=== PATIENT | female | born 1950 | race Caucasian/White ===

== ENCOUNTER 2017-10-01 04:39 | Emergency (ER) | payer OTHER, SELFPAY ==
[2017-10-01 04:41] VITALS: BP 173/84; PULSE 83; RESP 18; TEMP 36.8; O2SAT 97; BMI 22.4
--- NOTE | 2017-10-01 04:54 | ED.DCSUM_ITS ---
- ER Visit Summary Date of Service: 10/01/17 Chief Complaint: [] Back pain shooting down leg History of Present Illness: The patient is a 67 F [] complaining of 2-3 hours of severe sciatica pain. Denies previous history of sciatica. Does report working in the yard all day. No other complaints at this time. Physical Examination: [] Afebrile, vital signs stable. Cardiovascular exam reveals systolic murmur. Lungs clear to auscultation. Abdomen soft nontender. Patient has pain with the hip flexed and the knee extended. Neurovascularly intact distally. Test Results: [] None. Emergency Department Course and Treatment: [] Patient given 8 mg IM morphine and 30 mg IM Toradol for analgesia. Patient's is at the bedside will drive her home. Patient encouraged to follow-up with her PCP. Use ibuprofen as needed for pain. Treatment Plan: [] Given IM analgesia with prescription for ibuprofen for home. PCP follow up. Disposition: [] Discharge, stable. Impression: [] Right-sided sciatica This note was generated with [employer] dictation software. It may contain incorrect words, spelling, and punctuation that were not noted in review of the chart prior to signing ED Disposition - Plan for ED Patient: Chief Complaint: Lower Extremity Injury Referrals: Vinh Abdullahi DO [Primary Care Provider] -
--- NOTE | 2017-10-01 04:54 | ED.DEP ---
ED Disposition - Plan for ED Patient: Disposition: Home or Assisted Living Chief Complaint: Lower Extremity Injury Instructions: ED Sciatica Prescriptions: Ibuprofen 800 mg PO TID PRN PRN #30 tab PRN Reason: Pain Referrals: Vinh Abdullahi DO [Primary Care Provider] -
[2017-10-01] MEDS: morphine 8 MG/ML Syringe IM (05:02)
[2017-10-01] MEDS: Ketorolac 30 MG/ML Syringe IM (05:02)
--- NOTE | 2017-10-01 05:27 | ED.RN ---
no reaction at either injection sites. pt discharged via wheelchair with .
[2017-10-01 05:30] VITALS: BP 173/78; PULSE 78; RESP 16; O2SAT 95
== END 2017-10-01 05:31 | disposition home or self-care (01) ==
PROVIDERS: Emergency Provider Emergency Medicine; Family Provider Family Medicine; PCP Family Medicine
DX: M54.41 Lumbago with sciatica, right side (principal); R01.1 Cardiac murmur, unspecified; I10 Essential (primary) hypertension; E78.00 Pure hypercholesterolemia, unspecified; G89.29 Other chronic pain; Z79.899 Other long term (current) drug therapy; Z72.0 Tobacco use
CPT/HCPCS: 96372; 99282

== ENCOUNTER 2018-04-24 08:49 | Day surgery (SDC) | payer OTHER, SELFPAY ==
[2018-04-24] VITALS (8 sets, daily range): BP systolic 133–170; BP diastolic 68–84; PULSE 73–99; RESP 14–18; TEMP 36.3–37.4; O2SAT 95–98; BMI 21.2
--- NOTE | 2018-04-24 10:30 | RAD_ITS ---
STUDY: X-RAY - LEFT CLAVICLE REASON FOR EXAM: Hardware removal. TECHNIQUE: 2 fluoroscopic view(s) of the clavicle. COMPARISON: Radiographs 12/22/2016. FINDINGS: There is removal of the orthopedic hardware without demonstrated complication. Electronically Signed: Chang Espinoza MD at 15:17 EST Tel , Service support , RAD/Clavicle
--- NOTE | 2018-04-24 12:24 | DCINST_ITS ---
Discharge Diet: No Restrictions - use arm as tolerated, but sling for protection for next 2 weeks Discharge Activity: May Not Drive May shower in (days): 1 Ice area for (Minutes): 20 - Every hour while awake. Weight Bearing Status: Weight bearing as tolerated Keep extremity elevated above heart level: Operative Extremity Call your doctor if your incision/area has: Continuous Slow Oozing, Sudden Increased Bleeding, Increased Pain/ Swelling, Increased Redness, Foul Smelling Discharge Call your doctor if you observe: Fever of 101 or Higher, Coldness, Increased Pain, Numbness or Tingling, Change in Color, Calf discomfort Allergies/Adverse Reactions: Allergies No Known Allergies Allergy (Verified 04/24/18 09:03) Medications to take at Discharge Atorvastatin Calcium [Lipitor] 40 mg PO QHS 01/21/15 Metoprolol Tartrate [Lopressor (Beta Deana)] 25 mg PO BID 01/21/15 Ropinirole HCl [Requip Xl] 2 mg PO TID 01/21/15 traMADol [Ultram (G)] 100 mg PO BID 01/21/15 Ibuprofen 800 mg PO TID PRN PRN #30 tab 10/01/17 Hydrocodone Bitart/Apap 5-325 [[place] 5MG-325MG] 1 - 2 tablet PO Q6H PRN PRN 5 Days #20 tablet 04/24/18 The following prescriptions were given: Hydrocodone Bitart/Apap 5-325 [[place] 5MG-325MG] 1 - 2 tablet PO Q6H PRN PRN 5 Days #20 tablet PRN Reason: Pain Primary Care Physician: Vinh Abdullahi DO [Primary Care Provider] - Test Results: Test results from this visit will be discussed in further detail at your follow- up appointment, if applicable. Please Follow Up With: Abiola Savage DO - [phone]
--- NOTE | 2018-04-24 12:24 | PCM.OPRPT ---
Report of Operation Date of Procedure: 04/24/18 Pre-Operative Diagnosis: left clavicle h/o orif, painful hardware Post-Operative Diagnosis: same Surgery/Procedure Performed:: left clavicel removal of hardware and kalyani debridement clinical trial data manager: Ansemlo Peterson Type of Anesthesia:: General Anesthesiologist: Vipin Moreno Specimen's removed: 7 screws and plate- synthes Estimated Blood Loss (mL): 5cc Fluids Replaced: 1100ml lr Description of Procedure: Preoperative note Patient is a 68-year-old female well-known to the office. She had an ORIF of her left clavicle a little while back. X-rays confirmed well-healed however painful and she does not like the way it looks on the top of her shoulder is very close the skin. Risks benefits and alternatives surgery discussed with patient. Risks include but not limited to blood loss, blood clot, infection, neurovascular injury, failure procedure, loss of life and loss of limb. Patient is aware would like proceed with left shoulder clavicle removal of hardware repair is indicated. Operative note Patient seen and examined preoperative holding area. Left shoulder was marked. Patient brought to the operating room placed supine on the operating table. Signing, anesthesia, antibiotics were administered. The left arm was prepped and draped in usual sterile fashion. We then used fluoroscopy to take a preop initial fluoroscopy image to confirm screw number placement and hardware. We then marked out our previous incision timeout was performed. We then used a 15 blade to cut the skin dissected down with accommodation of tenotomies and a burner coagulating bleeders dental of the plate. We then used a burner to then release the soft tissue that was around the screws the screws were then removed and sent to for further follow-up cultures to ensure that there is no infection. We then moved the plate in its entirety and took final images to confirm that we had received moved all of the hardware. We then noticed a little bit of bony overgrowth so we did resect this back gently with a rongeur to a stable co-planed surface. We then irrigated the incision with copious amounts of sterile saline. Incision was closed with interrupted3 0 nylon in a running 4-0 Monocryl sterile dressings were applied patient was placed in a sling. Patient tolerated procedure well no not complete complication transferred recovery room in stable condition. Next Postoperative note Arm use arm as tolerated however use sling when out and about [facility] pharmacy has prescriptions Follow-up in 2 weeks for evaluation of Call with increased pain numbness tingling or further issues arise This note was generated with [employer] dictation software. It may contain incorrect words, spelling, and punctuation that were not noted in checking the note before signing.
--- NOTE | 2018-04-24 12:29 | OP.PCM_ITS ---
Report of Operation Date of Procedure: 04/24/18 Pre-Operative Diagnosis: left clavicle h/o orif, painful hardware Post-Operative Diagnosis: same Surgery/Procedure Performed:: left clavicel removal of hardware and kalyani debridement bituminous distributor operator: Anselmo Peterson Type of Anesthesia:: General Anesthesiologist: Vipin Moreno Specimen's removed: 7 screws and plate- synthes Estimated Blood Loss (mL): 5cc Fluids Replaced: 1100ml lr Description of Procedure: Preoperative note Patient is a 68-year-old female well-known to the office. She had an ORIF of her left clavicle a little while back. X-rays confirmed well-healed however painful and she does not like the way it looks on the top of her shoulder is very close the skin. Risks benefits and alternatives surgery discussed with patient. Risks include but not limited to blood loss, blood clot, infection, neurovascular injury, failure procedure, loss of life and loss of limb. Patient is aware would like proceed with left shoulder clavicle removal of hardware repair is indicated. Operative note Patient seen and examined preoperative holding area. Left shoulder was marked. Patient brought to the operating room placed supine on the operating table. Signing, anesthesia, antibiotics were administered. The left arm was prepped and draped in usual sterile fashion. We then used fluoroscopy to take a preop initial fluoroscopy image to confirm screw number placement and hardware. We then marked out our previous incision timeout was performed. We then used a 15 blade to cut the skin dissected down with accommodation of tenotomies and a burner coagulating bleeders dental of the plate. We then used a burner to then release the soft tissue that was around the screws the screws were then removed and sent to for further follow-up cultures to ensure that there is no infection. We then moved the plate in its entirety and took final images to confirm that we had received moved all of the hardware. We then noticed a little bit of bony overgrowth so we did resect this back gently with a rongeur to a stable co- planed surface. We then irrigated the incision with copious amounts of sterile saline. Incision was closed with interrupted3 0 nylon in a running 4-0 Monocryl sterile dressings were applied patient was placed in a sling. Patient tolerated procedure well no not complete complication transferred recovery room in stable condition. Next Postoperative note Arm use arm as tolerated however use sling when out and about next [facility] pharmacy has prescriptions Follow-up in 2 weeks for evaluation of Call with increased pain numbness tingling or further issues arise This note was generated with [employer] dictation software. It may contain incorrect words, spelling, and punctuation that were not noted in checking the note before signing.
== END 2018-04-24 14:59 | disposition home or self-care (01) ==
LOC: SDC 08:50 → AC 08:51
PROVIDERS: Family Provider Family Medicine; PCP Family Medicine; Referring Provider Orthopaedic Surgery; Visit Provider Orthopaedic Surgery
PROC: (CPT 20680; principal; 2018-04-24 10:15)
DX: T84.84XA Pain due to internal orthopedic prosthetic devices, implants and grafts, initial encounter (principal); Y83.1 Surgical operation with implant of artificial internal device as the cause of abnormal reaction of the patient, or of later complication, without mention of misadventure at the time of the procedure; E78.00 Pure hypercholesterolemia, unspecified; Z79.899 Other long term (current) drug therapy; I10 Essential (primary) hypertension; F17.200 Nicotine dependence, unspecified, uncomplicated; G25.81 Restless legs syndrome; G89.29 Other chronic pain
CPT/HCPCS: 00450; 20680; 73000; 76000; 87070; 87075; 87205; J7120; J0330; J2405

== ENCOUNTER → 2018-05-22 09:02 | Outpatient (CLI) | payer OTHER, SELFPAY ==
[2018-04-24 09:06] VITALS: BMI 21.2
--- NOTE | 2018-05-22 09:06 | RAD_ITS ---
STUDY: X-RAY - LUMBAR SPINE REASON FOR EXAM: Female, 68 years old. Chronic low back pain and lower extremity pain. TECHNIQUE: 4 view(s) of the lumbar spine were obtained including oblique views. COMPARISON: None FINDINGS: There is straightening of the normal lumbar lordosis. There is a mild levoscoliosis of the lumbar spine. Grade 1 anterolisthesis of L4 on L5 without spondylolysis. There is multilevel endplate spondylosis of the lumbar vertebrae. There is multi-level degenerative disc disease with multi-level disc space narrowing. There is atherosclerotic calcification of the abdominal aorta without a demonstrated aneurysm. RAD/L/S Spine Min 4 Views IMPRESSION: Degenerative changes of the spine, as detailed above. Electronically Signed: German Birmingham MD at 14:18 EST Tel [phone], Service support ,
--- OUTSIDE RECORDS SUMMARY | 2018-07-08 04:56 | XMS RPT_ITS ---
:1950 Author Organization OHIP Support Name Relationship Address Phone R Unavailable Unavailable Unavailable MANUELA ALBERTS Unavailable [address] + [place] [address] R Unavailable Unavailable Unavailable MANUELA ALBERTS Unavailable [address] + [place] [address] R Unavailable Unavailable Unavailable MANUELA ALBERTS Unavailable [address] + [place] [address] R Unavailable Unavailable Unavailable MANUELA ALBERTS Unavailable [address] + [place] [address] R Unavailable Unavailable Unavailable MANUELA ALBERTS Unavailable [address] + [place] [address] R Unavailable Unavailable Unavailable MANUELA ALBERTS Unavailable [address] + [place] [address] R Unavailable Unavailable Unavailable MANUELA ALBERTS Unavailable [address] + [place] [address] R Unavailable Unavailable Unavailable MANUELA ALBERTS Unavailable [address] + [place] [address] R Unavailable Unavailable Unavailable MANUELA ALBERTS Unavailable [address] + [place] [address] R Unavailable Unavailable Unavailable MANUELA ALBERTS Unavailable [address] + [place] [address] Care Team Providers Name Role Phone Vinh Abdullahi Attending Unavailable Vinh Abdullahi Referring Unavailable Vinh Abdullahi Primary Care Unavailable Vinh Abdullahi Attending Unavailable Vinh Abdullahi Referring Unavailable Vinh Abdullahi Primary Care Unavailable Vinh Abdullahi Primary Care Unavailable Niranjan Haro Attending Unavailable Anselmo Peterson Attending Unavailable Vinh Abdullahi Referring Unavailable Fredrick Petersonew Attending Unavailable Wayleroy, Anselmo Referring Unavailable Bradly, Vinh Primary Care Unavailable Wayt, Anselmo Attending Unavailable Wayt, Anselmo Referring Unavailable Bradly, Vinh Primary Care Unavailable Chicorelli, Abiola Attending Unavailable Bradly, Vinh Referring Unavailable Chicorelli, Abiola Attending Unavailable Chicorelli, Abiola Referring Unavailable Bradly, Vinh Primary Care Unavailable Chicorelli, Abiola Attending Unavailable Chicorelli, Abiola Referring Unavailable Bradly, Vinh Primary Care Unavailable Chicorelli, Abiola Consulting Unavailable Chicorelli, Abiola Attending Unavailable Bradly, Vinh Referring Unavailable PROBLEMS PROBLEMS DATE TYPE CONDITION / CODE ATTENDING STATUS SOURCE 06/06/2018 Unknown M89.8X1 - Other Anselmo Peterson Active [facility] specified [facility] / Hospital M89.8X1(ICD-10) Repository 06/05/2018 Unknown M54.16 - Vinh Abdullahi Active [facility] Radiculopathy, [facility] lumbar region / Hospital M54.16(ICD-10) Repository 04/24/2018 Unknown G89.18 - Other acute Chicorelmicki, Active Jennifer postprocedural pain [facility], 1928–1983 / G89.18(ICD-10) Hospital Repository PROCEDURES PROCEDURES No Procedure Records FoundRESULTS RESULTS ORTHOPEDIC VISIT Observed: 06/06/2018 Status: F Source: [place] REPORT 12:41 PM [facility] REPOSITORY [facility] [address] [place] [address] OFFICE VISIT Date of Service: 06/06/18 MR#: [id number] Acct: [id number] Name: ARISTEOROBBY A Rep #: [id number] : 1950 Provider: TEMO Peterson Age/Sex: 68/F Location: [facility] Status: Signed Intake Intake Visit Reasons: LEFT CLAVICLE Is patient in pain?: Yes Pain scale (1-10): 6 Allergies No Known Allergies Allergy (Verified 05/07/18 09:58) Medications Atorvastatin Calcium [Lipitor] 40 mg PO QHS 01/21/15 [History Confirmed 04/24/18] Metoprolol Tartrate [Lopressor (Beta Deana)] 25 mg PO BID 01/21/15 [History Confirmed 04/24/18] Ropinirole HCl [Requip Xl] 2 mg PO TID 01/21/15 [History Confirmed 04/24/18] traMADol [Ultram (G)] 100 mg PO BID 01/21/15 [History Confirmed 04/24/18] Ibuprofen 800 mg PO TID PRN PRN #30 tab 10/01/17 [Rx Confirmed 04/24/18] PFSH Social History Smoking Status: Current every day smoker HPI LEFT CLAVICLE: Details: ROBBY ALBERTS is a 68 year old F here today for f/u 04/24 hardware removal left clavicle. She complains of pain along the entire clavicle with weighted movements and with abduction and flexion without weight. She has been trying to do her HEP with a 2lb weight and has had pain for a couple of weeks. Denies numbness, tingling or other associated symptoms. She has no complaints of neck pain. Ortho Exam Left Shoulder Testing: Yes Hawkin's, Yes Neer's, Yes TTP Biceps, No TTP AC Joint, No Drop Arm, Yes AROM-Forward Elevation 0-180, Yes AROM-External Rotation at side 0-60, No empty can Internal Rotation: L2 SHOULDER: Patient has no evident abnormalities of the shoulder at this time. Her incision site has healed great without any redness or other abnormalities. She has no localized or generalized swelling of the shoulder. Her range of motion is actually pretty much full range of motion at this time. She definitely though has a lot of stiffness with passive range of motion compared to the right side. It is as though she has early signs of a frozen shoulder but still has her motion at this time. She does have evidence of rotator cuff impingement. Assessment AND Plan Problems 1. S/P hardware removal Z98.890 2. 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 Rotator cuff impingement syndrome of left shoulder M75.42 Plan At this time patient has some evidence of some rotator cuff impingement as well as some early signs of a frozen shoulder. Again her main motion today is actually pretty normal at the same time passively she just feels very stiff with her movements. We discussed treatment options at this time which include doing nothing, continued conservative care with ice and anti-inflammatories, injection, and physical therapy. At this time patient would like to proceed with an injection prior to starting physical therapy for range of motion and strength. We will have her follow-up in a few weeks just to check on her progress through physical therapy. At this time she does not feel she is able to go back to work and therefore we will give her 2 weeks of physical therapy and can return after that. This note was generated with Cooleradoation software. It may contain incorrect words, spelling, and punctuation that were not noted in checking the note before signing. Orders Orders: Plan Detail Follow Up 3 Weeks Coding Level of Care Code Global Post Op Diagnoses S/P hardware removal Z98.890 Adhesive capsulitis of left shoulder M75.02 Laterality: left Rotator cuff impingement syndrome of left shoulder M75.42 06/06/18 1241 <Electronically signed by Anselmo PLASCENCIA> Date Anselmo PLASCENCIA Cosigner Signature: Date (if applicable) CC: CLAVICLE Observed: 06/06/2018 Status: F Source: [place] 8:54 AM [facility] Imaging Services [address] [place] [address] Clavicle MR#: [id number] Acct: [id number] Name: ROBBY ALBERTS Rep #: [id number] : 1950 F 68 From: Man Horn MD PCP: Vinh Abdullahi DO Status: REG CLI Study: Clavicle Date of Exam: 06/06/18 Exam# [id number] Ordering Dr: Anselmo Peterson STUDY: X-RAY - LEFT CLAVICLE REASON FOR EXAM: Female, 68 years old. Postop TECHNIQUE: 2 view(s) of the clavicle. COMPARISON: 04/24/2018 FINDINGS: Interval hardware removal. Arterial defects are visible in the clavicle. No fractures or erosive lesions are seen. Sternoclavicular and acromioclavicular joint spaces are intact. RAD/Clavicle IMPRESSION: Postoperative changes. No acute osseous abnormality is evident. Electronically Signed: Man Horn MD at 5:44 EST Tel , Service support , CC: TEMO Peterson; Vinh Abdullahi DO Driver Medic: Signed SPINE LUMBAR Observed: 06/05/2018 Status: F Source: [place] (ROUTINE) 4:17 PM [facility] Imaging Services [address] [place] [address] Spine Lumbar (Routine) MR#: [id number] Acct: [id number] Name: ROBBY ALBERTS Rep #: [id number] : 1950 F 68 From: Man Horn MD PCP: Vinh Abdullahi DO Status: REG CLI Study: Spine Lumbar (Routine) Date of Exam: 06/05/18 Exam# [id number] Ordering Dr: Vinh Abdullahi DO ADDENDUM by Man Horn MD on 06/08/18 at 0329 ADDENDUM Comparison radiographs dated 05/22/2018 have been made available. No change in the original report. Electronically Signed: Man Horn MD at 3:29 EST Tel , Service support , 06/08/18 0329 Date cc: Vinh ReganBradly DO * Signed ADDENDUM by Man Horn MD on 06/08/18 at 0329 MRI/Spine Lumbar (Routine) 06/08/18 0335 Date cc: Vinh Abdullahi DO * Signed STUDY: MRI LUMBAR SPINE WITHOUT CONTRAST REASON FOR EXAM: Female, 68 years old. Low back pain and sciatica in both legs for several months TECHNIQUE: Standardized fat and water weighted pulse sequences were obtained in the sagittal and axial planes. COMPARISON: None FINDINGS: T12-L1: Normal endplates. Normal disc height, hydration and morphology. Normal bilateral facet joints. Normal central canal and bilateral lateral recesses. Normal bilateral intervertebral neural foramina. Normal lumbar lordosis. There is a levoscoliosis of the lumbar spine. Normal conus medullaris that terminates at the L2 level. L1-2: Normal endplates. Normal disc height, hydration and morphology. Normal bilateral facet joints. Normal central canal and bilateral lateral recesses. Normal bilateral intervertebral neural foramina. L2-3: Disc space narrowing and desiccation with discogenic endplate changes and anterior osteophytes. Bulging annulus and right facet hypertrophy with moderate to severe right and mild left foraminal stenoses. L3-4: Disc space narrowing and desiccation with discogenic endplate changes and anterior osteophytes. Bulging annulus with moderate to severe right and moderate left foraminal stenoses. L4-5: Bulging annulus and left facet hypertrophy with moderate to severe left and moderate right foraminal stenoses. L5-S1: Bulging annulus and left facet hypertrophy with moderate to severe left and mild right foraminal stenoses. Right laminectomy. Normal visualized sacral ala. Normal visualized paraspinous soft tissue structures. MRI/Spine Lumbar (Routine) IMPRESSION: Multilevel degenerative disease as described. Moderate to severe foraminal stenoses are present on the right at L2-3, on the right at L3-4, on the left at L4-5, and on the left at L5-S1. Electronically Signed: Man Horn MD at 1:48 EST Tel , Service support , CC: Vinh Abdullahi DO Driver Medic: Signed L/S SPINE MIN 4 Observed: 05/22/2018 Status: F Source: [place] VIEWS 9:06 AM [facility] Imaging Services [address] [place] [address] L/S Spine Min 4 Views MR#: [id number] Acct: [id number] Name: ROBBY ALBERTS Rep #: [id number] : 1950 F 68 From: German Birmingham MD PCP: Vinh Abdullahi DO Status: REG CLI Study: L/S Spine Min 4 Views Date of Exam: 05/22/18 Exam# [id number] Ordering Dr: Vinh Abdullahi DO STUDY: X-RAY - LUMBAR SPINE REASON FOR EXAM: Female, 68 years old. Chronic low back pain and lower extremity pain. TECHNIQUE: 4 view(s) of the lumbar spine were obtained including oblique views. COMPARISON: None FINDINGS: There is straightening of the normal lumbar lordosis. There is a mild levoscoliosis of the lumbar spine. Grade 1 anterolisthesis of L4 on L5 without spondylolysis. There is multilevel endplate spondylosis of the lumbar vertebrae. There is multi-level degenerative disc disease with multi-level disc space narrowing. There is atherosclerotic calcification of the abdominal aorta without a demonstrated aneurysm. RAD/L/S Spine Min 4 Views IMPRESSION: Degenerative changes of the spine, as detailed above. Electronically Signed: German Birmingham MD at 14:18 EST Tel [phone], Service support , CC: Vinh Abdullahi DO Driver Medic: Signed ORTHOPEDIC VISIT Observed: 05/07/2018 Status: F Source: [place]ER REPORT 2:18 PM [facility] REPOSITORY [facility] [address] [place] [address] OFFICE VISIT Date of Service: 05/07/18 MR#: [id number] Acct: [id number] Name: ROBBY ALBERTS Rep #: [id number] : 1950 Provider: Abiola Savage DO Age/Sex: 68/F Location: [facility] Status: Signed Intake Intake Visit Reasons: left clavicle Is patient in pain?: No Allergies No Known Allergies Allergy (Verified 05/07/18 09:58) Medications Atorvastatin Calcium [Lipitor] 40 mg PO QHS 01/21/15 [History Confirmed 04/24/18] Metoprolol Tartrate [Lopressor (Beta Deana)] 25 mg PO BID 01/21/15 [History Confirmed 04/24/18] Ropinirole HCl [Requip Xl] 2 mg PO TID 01/21/15 [History Confirmed 04/24/18] traMADol [Ultram (G)] 100 mg PO BID 01/21/15 [History Confirmed 04/24/18] Ibuprofen 800 mg PO TID PRN PRN #30 tab 10/01/17 [Rx Confirmed 04/24/18] PFSH Social History Smoking Status: Current every day smoker HPI left clavicle: Details: ROBBY ALBERTS is a 68 year old F here today for s/p left clavicle hardware removal dos 04/24/18. Patient states that she is doing much better and having less pain. She is unable to wear her bra the entire day due to her pain at incision still however. She denies any redness and drainage from her incision. She has numbness below her incision. Denies any fevers or chills. ROS Const Reports system reviewed and no additional complaints, except as docu Eyes Reports system reviewed and no additional complaints, except as docu ENT Reports system reviewed and no additional complaints, except as docu Card Reports system reviewed and no additional complaints, except as docu Resp Reports system reviewed and no additional complaints, except as docu GI Reports system reviewed and no additional complaints, except as docu Reports system reviewed and no additional complaints, except as docu Skin/Breast Reports system reviewed and no additional complaints, except as docu Neuro Yes system reviewed and no additional complaints, except as docu Psych Reports system reviewed and no additional complaints, except as docu Endo Reports system reviewed and no additional complaints, except as docu Assessment AND Plan Plan Patient doing well from a standpoint she is very pleased with her results and is having much less pain than she was having preoperatively. Does not wish to do physical therapy will do PT and exercises at home if she has any concerns she will call us for PT prescription. She will follow-up in 4 weeks with Joyce or sooner if there are any issues arise. She is a little bit of numbness at her skin incision other than that incision looks great she has no pain and she is doing well from a postop standpoint. All questions answered. Patient in agreement of plan.Follow up in 4 wks with joyce wayt or sooner if pain, swelling, numbness or associated symptoms, or concerns develop. Coding Level of Care Code Global Post Op 05/07/18 1418 <Electronically signed by Abiola Savage DO> Date Abiola Savage DO Cosigner Signature: Date (if applicable) CC: OPERATIVE REPORT Observed: 04/24/2018 Status: F Source: [place] 12:29 PM [facility] Medical Records Department [address] [place] [address] Operative Report 04/24/18 1224 MR#: [id number] Acct: [id number] Name: ROBBY ALBERTS Rep #: [id number] : 1950 68 From: Abiola Savage DO PCP: Vinh Abdullahi DO Status: REG [place] Y Location: [place] [address] Report of Operation Date of Procedure: 04/24/18 Pre-Operative Diagnosis: left clavicle h/o orif, painful hardware Post-Operative Diagnosis: same Surgery/Procedure Performed:: left clavicel removal of hardware and kalyani debridement viticulture teacher: Anselmo Peterson Type of Anesthesia:: General Anesthesiologist: Vipin Moreno Specimen's removed: 7 screws and plate- synthes Estimated Blood Loss (mL): 5cc Fluids Replaced: 1100ml lr Description of Procedure: Preoperative note Patient is a 68-year-old female well-known to the office. She had an ORIF of her left clavicle a little while back. X-rays confirmed well-healed however painful and she does not like the way it looks on the top of her shoulder is very close the skin. Risks benefits and alternatives surgery discussed with patient. Risks include but not limited to blood loss, blood clot, infection, neurovascular injury, failure procedure, loss of life and loss of limb. Patient is aware would like proceed with left shoulder clavicle removal of hardware repair is indicated. Operative note Patient seen and examined preoperative holding area. Left shoulder was marked. Patient brought to the operating room placed supine on the operating table. Signing, anesthesia, antibiotics were administered. The left arm was prepped and draped in usual sterile fashion. We then used fluoroscopy to take a preop initial fluoroscopy image to confirm screw number placement and hardware. We then marked out our previous incision timeout was performed. We then used a 15 blade to cut the skin dissected down with accommodation of tenotomies and a burner coagulating bleeders dental of the plate. We then used a burner to then release the soft tissue that was around the screws the screws were then removed and sent to for further follow-up cultures to ensure that there is no infection. We then moved the plate in its entirety and took final images to confirm that we had received moved all of the hardware. We then noticed a little bit of bony overgrowth so we did resect this back gently with a rongeur to a stable co-planed surface. We then irrigated the incision with copious amounts of sterile saline. Incision was closed with interrupted3 0 nylon in a running 4-0 Monocryl sterile dressings were applied patient was placed in a sling. Patient tolerated procedure well no not complete complication transferred recovery room in stable condition. Next Postoperative note Arm use arm as tolerated however use sling when out and about next Hospital pharmacy has prescriptions Follow-up in 2 weeks for evaluation of Call with increased pain numbness tingling or further issues arise This note was generated with iVilka dictation software. It may contain incorrect words, spelling, and punctuation that were not noted in checking the note before signing. 04/24/18 1229 <Electronically signed by Abiola Savage DO> Date Abiola Savage DO CC: Abiola Savage DO; Vinh Abdullahi DO Signed DISCHARGE INSTRUCTION Observed: 04/24/2018 Status: F Source: [place] 12:24 PM [facility] Medical Records Department [address] [place] [address] [place] [address] Instructions for Home/Discharge Instructions 04/24/18 1224 MR#: [id number] Acct: [id number] Name: ALBERTSROBBY Galvez Jacob Rep #: [id number] : 1950 68 From: Abiola Savage DO PCP: Vinh Abdullahi DO Status: REG SDC Discharge Diet: No Restrictions - use arm as tolerated, but sling for protection for next 2 weeks Discharge Activity: May Not Drive May shower in (days): 1 Ice area for (Minutes): 20 - Every hour while awake. Weight Bearing Status: Weight bearing as tolerated Keep extremity elevated above heart level: Operative Extremity Call your doctor if your incision/area has: Continuous Slow Oozing, Sudden Increased Bleeding, Increased Pain/ Swelling, Increased Redness, Foul Smelling Discharge Call your doctor if you observe: Fever of 101 or Higher, Coldness, Increased Pain, Numbness or Tingling, Change in Color, Calf discomfort Allergies/Adverse Reactions: Allergies No Known Allergies Allergy (Verified 04/24/18 09:03) Medications to take at Discharge Atorvastatin Calcium [Lipitor] 40 mg PO QHS 01/21/15 Metoprolol Tartrate [Lopressor (Beta Deana)] 25 mg PO BID 01/21/15 Ropinirole HCl [Requip Xl] 2 mg PO TID 01/21/15 traMADol [Ultram (G)] 100 mg PO BID 01/21/15 Ibuprofen 800 mg PO TID PRN PRN #30 tab 10/01/17 Hydrocodone Bitart/Apap 5-325 [[place] 5MG-325MG] 1 - 2 tablet PO Q6H PRN PRN 5 Days #20 tablet 04/24/18 The following prescriptions were given: Hydrocodone Bitart/Apap 5-325 [[place] 5MG-325MG] 1 - 2 tablet PO Q6H PRN PRN 5 Days #20 tablet PRN Reason: Pain Primary Care Physician: Vinh Abdullahi DO [Primary Care Provider] - Test Results: Test results from this visit will be discussed in further detail at your follow-up appointment, if applicable. Please Follow Up With: Abiola Savage DO - [phone] 04/24/18 1224 <Electronically signed by Abiola Savage DO> Date Abiola Savage DO CC: Vinh Abdullahi DO CLAVICLE Observed: 04/24/2018 Status: F Source: [place] 4:40 AM [facility] Imaging Services [address] [place] [address] Clavicle MR#: [id number] Acct: [id number] Name: ROBBY ALBERTS Rep #: [id number] : 1950 F 68 From: Chang Espinoza MD PCP: Vinh Abdullahi DO Status: [facility] Study: Clavicle Date of Exam: 04/24/18 Exam# [id number] Ordering Dr: Abiola Savage DO STUDY: X-RAY - LEFT CLAVICLE REASON FOR EXAM: Hardware removal. TECHNIQUE: 2 fluoroscopic view(s) of the clavicle. COMPARISON: Radiographs 12/22/2016. FINDINGS: There is removal of the orthopedic hardware without demonstrated complication. Electronically Signed: Chang Espinoza MD at 15:17 EST Tel , Service support , RAD/Clavicle CC: Abiola Savage DO; Vinh Abdullahi DO Driver Medic: Signed Observed: 04/24/2018 Status: F Source: [place] CULTURE, DEEP WOUND 12:00 AM [facility] REPOSITORY Order Date: 01/10/17 Comments: 7 SCREWS LEFT CLAVICLE Gram Stain Gram Stain No organisms seen No cells seen Wound Culture No growth aerobically. Cult, Anaerobic No growth in 5 days. Performed By: #### M100.1500 #### [facility] [address] [place], [place], [address] ORTHOPEDIC VISIT Observed: 04/08/2018 Status: F Source: [place] REPORT 12:48 PM [facility] RE[facility] [facility] [address] [place] [address] OFFICE VISIT Date of Service: 04/02/18 MR#: [id number] Acct: [id number] Name: ROBBY ALBERTS Rep #: [id number] : 1950 Provider: Abiola Savage DO Age/Sex: 68/F Location: [facility] Status: Signed Intake Intake Visit Reasons: LEFT SHOULDER Is patient in pain?: Yes Pain scale (1-10): 8 Allergies No Known Allergies Allergy (Verified 08/25/13 15:08) Medications Atorvastatin Calcium [Lipitor] 40 mg PO QHS 01/21/15 [History Confirmed 10/01/17] Metoprolol Tartrate [Lopressor (Beta Deana)] 25 mg PO BID 01/21/15 [History Confirmed 10/01/17] Ropinirole HCl [Requip Xl] 2 mg PO TID 01/21/15 [History Confirmed 10/01/17] traMADol [Ultram (G)] 100 mg PO BID 01/21/15 [History Confirmed 10/01/17] Ibuprofen 800 mg PO TID PRN PRN #30 tab 10/01/17 [Rx] PFSH Social History Smoking Status: Current every day smoker HPI LEFT SHOULDER: Details: ROBBY ALBERTS is a 68 year old F here today for left shoulder pain localized to top of clavicle at site of hardware, she has pain with all motions and the worst pain at the end of the day. She states that the tramadol she is prescribed by Dr Abdullahi for her back pain is helpful for her shoulder. She has not used any ice or home modalities, denies any PT since when her clavicle was repaired. Denies numbness, tingling or other associated symptoms. She denies any weakness today. She has difficulty completing tasks that require IR/ER. Patient had xrays last year but no MRI. Ortho Exam Left Shoulder Skin/Wound: Yes CDI Contralateral Normal: Yes SHOULDER: ttp over the clavicle plate Assessment AND Plan 1. Chronic left shoulder pain M25.512; G89.29 Plan Explained that we can remove the hardware, she has ttp over the plate. Reviewed the pre-operative plans with the patient. Risks and benefits of the procedure were fully explained, including but not limited to infection, neurovascular injury, continued pain, arthritis, stiffness, need for further surgery, re-injury, DVT, PE, general risks of anesthesia, and loss of limb or life. The patient understands all the risks and does wish to proceed with written consent. Follow up post op or sooner if pain, swelling, numbness or associated symptoms, or concerns develop. All questions answered. Patient in agreement of plan. 2. History of open reduction and internal fixation (ORIF) procedure Z98.890 Coding Level of Care Code Off vis,est,level 4 Diagnoses Chronic left shoulder pain M25.512; G89.29 Chronicity: chronic History of open reduction and internal fixation (ORIF) procedure Z98.890 04/08/18 1248 <Electronically signed by Abiola Savage DO> Date Abiola Drew Signature: Date (if applicable) CC: EMERGENCY DEPARTMENT Observed: 10/01/2017 Status: F Source: [place] SUMMARY 7:12 AM [facility] Medical Records Department [address] [place] [address] Emergency Department Summary 10/01/17 0452 MR#: [id number] Acct: [id number] Name: ROBBY ALBERTS Rep #: [id number] : 1950 67 From: Niranjan Haro DO PCP: Vinh Abdullahi DO Status: DEP ER - ER Visit Summary Date of Service: 10/01/17 Chief Complaint: [] Back pain shooting down leg History of Present Illness: The patient is a 67 F [] complaining of 2-3 hours of severe sciatica pain. Denies previous history of sciatica. Does report working in the yard all day. No other complaints at this time. Physical Examination: [] Afebrile, vital signs stable. Cardiovascular exam reveals systolic murmur. Lungs clear to auscultation. Abdomen soft nontender. Patient has pain with the hip flexed and the knee extended. Neurovascularly intact distally. Test Results: [] None. Emergency Department Course and Treatment: [] Patient given 8 mg IM morphine and 30 mg IM Toradol for analgesia. Patient's is at the bedside will drive her home. Patient encouraged to follow- up with her PCP. Use ibuprofen as needed for pain. Treatment Plan: [] Given IM analgesia with prescription for ibuprofen for home. PCP follow up. Disposition: [] Discharge, stable. Impression: [] Right-sided sciatica This note was generated with iVilka dictation software. It may contain incorrect words, spelling, and punctuation that were not noted in review of the chart prior to signing ED Disposition - Plan for ED Patient: Chief Complaint: Lower Extremity Injury Referrals: Vinh Abdullahi DO [Primary Care Provider] - What to do if you have Problems For any increased pain, shortness of breath, bleeding, nausea or vomiting, chest pain, or any unexpected problems, contact your Primary Care Provider. Call [facility] ([phone]) or report to the closest Emergency Room. Call 911 if necessary. 10/01/17 0712 <Electronically signed by Niranjan Haro DO> Date Niranjan Haro DO Cosigner Signature (If Indicated): Date CC: Vinh Abdullahi DO DISCHARGE INSTRUCTION Observed: 10/01/2017 Status: F Source: [place] 5:00 AM [facility] Medical Records Department [address] [place] [address] Discharge Instruction 10/01/17 0454 MR#: [id number] Acct: [id number] Name: ROBBY ALBERTS Rep #: [id number] : 1950 67 From: Niranjan Haro DO PCP: Vinh Abdullahi DO Status: REG ER ED Disposition - Plan for ED Patient: Disposition: Home or Assisted Living Chief Complaint: Lower Extremity Injury Instructions: ED Sciatica Prescriptions: Ibuprofen 800 mg PO TID PRN PRN #30 tab PRN Reason: Pain Referrals: Vinh Abdullahi DO [Primary Care Provider] - What to do if you have Problems For any increased pain, shortness of breath, bleeding, nausea or vomiting, chest pain, or any unexpected problems, contact your Primary Care Provider. Call [facility] ([phone]) or report to the closest Emergency Room. Call 911 if necessary. 10/01/17 0500 <Electronically signed by Niranjan Haro DO> Date Niranjan Haro DO Cosigner Signature (If Indicated): Date CC: Vinh Abdullahi DO ALLERGIES ALLERGIES DATE TYPE / CODE NAME / CODE REACTION SEVERITY SOURCE 05/07/2018 Drug No Known Unknown [facility] Allergy/4160 Allergies/F00 Hospital 55242(SNOMED 2887267(RXNOR Repository CT) M) ENCOUNTERS ENCOUNTERS ADMIT/DISCHARGE ACCOUNT ADMITTING ENCOUNTER LOCATION SOURCE NUMBER CLASS 06/17/2018 [id number] Ambulatory Jennifer Newell 9 [facility] ing:PT Repository 06/06/2018 [id number] Ambulatory Newell Newell 7 [facility] ing:HPRAD Repository 06/06/2018/ [id number] Ambulatory BMSBuilding:B Jennifer 8 4 [facility] Repository 06/05/2018 [id number] Ambulatory Newell Newell 6 [facility] ing:MRI Repository 05/22/2018 [id number] Ambulatory Newell Newell 2 [facility] ing:MTRAD Repository 05/07/2018/ [id number] Ambulatory BMSBuilding:B Jennifer 8 5 [facility] Repository 04/24/2018 [id number] Ambulatory BMSBuilding:B Newell 0 MS.CF.[facility] Repository 04/24/2018/ [id number] Ambulatory Newell Jennifer 8 4 [facility] ing:SDCRoom: Repository AC20 04/02/2018/ [id number] Ambulatory BMSBuilding:B Newell 8 7 [facility] Repository 10/01/2017/ [id number] Emergency Jennifer Newell 8 7 [facility] ing:ED Repository PAYERS PAYERS ENCOUNTER GUARANTOR PAYER SUBSCRIBER SOURCE 06/17/2018 MANUELA Galvez Primary Insurance:MED MANUELA Lopezoster [id number] [facility], Number: [id number] [facility] Hospital [address]Iiw: [id number] Repository Date:2387-67-80NJ [address]OX (RG) [id number], [place] [address]VE: CHECK WEBSITE 06/17/2018 Secondary NOT GIVENUNK Jennifer Insurance:SELF PAY [facility] Number: Effective Repository Date:2018-06-06 06/06/2018 MANUELA Galvez Primary Insurance:MED MANUELA Rodriguez [id number] [facility] WEBBDOB[facility], Number: [id number] General Hospital [address]Hzv: [id number] Repository Date:7943-40-17FH [address] () [address]AD, [place] [address]OP: CHECK WEBSITE 06/06/2018 Secondary NOT GIVENUNK Newell Insurance:SELF PAY [facility] Number: Effective Repository Date:2018-06-06 06/06/2018 ROBBY James Primary Insurance:MED MANUELA B Jennifer [id number] S [employer] WEBBDOB: [facility] GAMAL MAYO, Number: [id number] General Hospital [address]Lvi: [id number] Repository Date:3316-62-41SE [address] () [address], [place] [address]DU: CHECK WEBSITE 06/06/2018 Secondary NOT GIVENUNK Jennifer Insurance:SELF PAY [facility] Number: Effective Repository Date:2018-06-05 06/05/2018 MANUELA B Primary Insurance:MED MANUELA B Jennifer [id number] S [employer] WEBBDOB: [facility] GAMAL MAYO, Number: [id number] General Hospital [address]Eiw: [id number] Repository Date:4339-49-28IU [address] () [address], [place] [address]AS: CHECK WEBSITE 06/05/2018 Secondary NOT GIVENUNK Newell Insurance:SELF PAY [facility] Number: Effective Repository Date:2018-05-24 05/22/2018 MANUELA B Primary Insurance:MED MANUELA B Jennifer [id number] S [employer] WEBBDOB: [facility] GAMAL MAYO, Number: [id number] General Hospital [address]Xkp: [id number] Repository Date:0051-07-25AM [address] () [address]UD[place]VL, [place] [address]CJ: CHECK WEBSITE 05/22/2018 Secondary NOT GIVENUNK Jennifer Insurance:SELF PAY [facility] Number: Effective Repository Date:2018-05-22 05/07/2018 MANUELA B Primary Insurance:MED MANUELA B Jennifer [id number] S [employer] WEBBDOB: [facility] GAMAL MAYO Number: [id number] General Hospital [address]Bxo: [id number] Repository Date:1158-96-72OA [address] () [address]Y, [place] [address]SI: CHECK WEBSITE 05/07/2018 Secondary NOT GIVENUNK Newell Insurance:SELF PAY [facility] Number: Effective Repository Date:2018-05-07 04/24/2018 MANUELA Galvez Primary Insurance:MED MANUELA B Newell [id number] S [employer] WEBBDOB: [facility] GAMAL MAYO, Number: [id number] General Hospital [address]Uvh: [id number] Repository Date:6510-31-61HM [address] () [address]UMKMILPYI, [place] [address]NK: CHECK WEBSITE 04/24/2018 Secondary NOT GIVENUNK Jennifer Insurance:SELF PAY [facility] Number: Effective Repository Date:2018-04-24 04/24/2018 MANUELA Galvez Primary Insurance:MED MANUELA B Newell [id number] [address] [facility] WEBBDOB: [facility] GAMAL MAYO, Number: [id number] General Hospital [address]Qse: [id number] Repository Date:9042-43-29HR [address] () [address]DGZNOJTSH, [place] [address]QB: CHECK WEBSITE 04/24/2018 Secondary NOT GIVENUNK Newell Insurance:SELF PAY [facility] Number: Effective Repository Date:2018-04-08 2018 MANUELA B Primary Insurance:MED MANUELA B Newell [id number] [facility] WEBBDOB: [facility] GAMAL MAYO, Number: [id number] General Hospital [address]Loe: [id number] Repository Date:4460-06-95IP [address] () [address]DKLSYGQGW, [place] [address]HN: CHECK WEBSITE 2018 Secondary NOT GIVENUNK Jennifer Insurance:SELF PAY [facility] Number: Effective Repository Date:2018 10/01/2017 Manuela B Primary Insurance:MED Manuela B Newell [id number] [place] TP[place]icy WebbDOB: [facility] CARMELANE MARIA ESTHER, Number: [id number] General Hospital [address]Exl: [id number] Repository Date:2814-28-90LI BOX (EW) [address]XHSDUCE, [place] [address]AC: CHECK WEBSITE 10/01/2017 Secondary NOT GIVENANTHONY Rodriguez Insurance:SELF PAY [facility] Number: Effective Repository Date:2017-10-01
== END ==
PROVIDERS: Family Provider Family Medicine; PCP Family Medicine; Referring Provider Family Medicine; Visit Provider Family Medicine
DX: M54.16 Radiculopathy, lumbar region (principal)
CPT/HCPCS: 72110

== ENCOUNTER → 2018-06-05 16:13 | Outpatient (CLI) | payer OTHER, SELFPAY ==
--- NOTE | 2018-06-05 16:17 | MRI_ITS ---
STUDY: MRI LUMBAR SPINE WITHOUT CONTRAST REASON FOR EXAM: Female, 68 years old. Low back pain and sciatica in both legs for several months TECHNIQUE: Standardized fat and water weighted pulse sequences were obtained in the sagittal and axial planes. COMPARISON: None FINDINGS: T12-L1: Normal endplates. Normal disc height, hydration and morphology. Normal bilateral facet joints. Normal central canal and bilateral lateral recesses. Normal bilateral intervertebral neural foramina. Normal lumbar lordosis. There is a levoscoliosis of the lumbar spine. Normal conus medullaris that terminates at the L2 level. L1-2: Normal endplates. Normal disc height, hydration and morphology. Normal bilateral facet joints. Normal central canal and bilateral lateral recesses. Normal bilateral intervertebral neural foramina. L2-3: Disc space narrowing and desiccation with discogenic endplate changes and anterior osteophytes. Bulging annulus and right facet hypertrophy with moderate to severe right and mild left foraminal stenoses. L3-4: Disc space narrowing and desiccation with discogenic endplate changes and anterior osteophytes. Bulging annulus with moderate to severe right and moderate left foraminal stenoses. L4-5: Bulging annulus and left facet hypertrophy with moderate to severe left and moderate right foraminal stenoses. L5-S1: Bulging annulus and left facet hypertrophy with moderate to severe left and mild right foraminal stenoses. Right laminectomy. Normal visualized sacral ala. Normal visualized paraspinous soft tissue structures. MRI/Spine Lumbar (Routine) IMPRESSION: Multilevel degenerative disease as described. Moderate to severe foraminal stenoses are present on the right at L2-3, on the right at L3-4, on the left at L4-5, and on the left at L5-S1. Electronically Signed: Man Horn MD at 1:48 EST Tel , Service support ,
== END ==
PROVIDERS: Family Provider Family Medicine; PCP Family Medicine; Referring Provider Family Medicine; Visit Provider Family Medicine
DX: M54.16 Radiculopathy, lumbar region (principal)
CPT/HCPCS: 72148

== ENCOUNTER → 2018-06-06 08:51 | Outpatient (CLI) | payer OTHER, SELFPAY ==
--- NOTE | 2018-06-06 08:54 | RAD_ITS ---
STUDY: X-RAY - LEFT CLAVICLE REASON FOR EXAM: Female, 68 years old. Postop TECHNIQUE: 2 view(s) of the clavicle. COMPARISON: 04/24/2018 FINDINGS: Interval hardware removal. Arterial defects are visible in the clavicle. No fractures or erosive lesions are seen. Sternoclavicular and acromioclavicular joint spaces are intact. RAD/Clavicle IMPRESSION: Postoperative changes. No acute osseous abnormality is evident. Electronically Signed: aMn Horn MD at 5:44 EST Tel , Service support ,
== END ==
PROVIDERS: Family Provider Family Medicine; PCP Family Medicine; Referring Provider Physician Assistant; Visit Provider Physician Assistant
DX: M89.8X1 Other specified disorders of bone, shoulder (principal)
CPT/HCPCS: 73000

== ENCOUNTER → 2018-12-24 | Outpatient (CLI) | payer OTHER, SELFPAY ==
[2018-07-20 09:18] VITALS: BMI 21.7
[2018-12-24 12:28] LABS: Absolute Lymphocyte Count 3.27 X10^3/uL (0.83-4.51); Absolute Neutrophil Count 6.8 X10^3/uL (2.0-7.7); Basophil# 0.05 X10^3/uL; Basophil% 0.4 % (0-1); Eosinophil# 0.25 X10^3/uL; Eosinophils% 2.2 % (0-5); Hematocrit 40.8 % (37-47); Hemoglobin 13.2 g/dL (12.0-15.0); Lymphocyte # 3.27 X10^3/ul (4.0); Lymphocyte % 29.1 % (19-41); Mean Corp Hgb Conc 32.4 g/dL (32-36); Mean Corpuscular Hgb 30.8 pg (27.0-32.0); Mean Corpuscular Volume 95.3 fL (81-99); Mean Platelet Vol. 10.8 fl (6.2-12.0); Monocyte% 7.1 % (0-10); NRBC Flagged by Analyzer 0 % (0-5); Neutrophil # 6.83 X10^3/uL (2.7-7.7); Neutrophil % 60.8 % (47-70); Platelet Count 252 K/mm3 (150-450); RBC Distribution Width CV 13.1 % (11.6-14.6); RBC Distribution Width SD 46.2 fl (35.1-43.9); Red Blood Count 4.28 M/mm3 (4.2-5.4); White Blood Count 11.2 K/mm3 (4.4-11.0)
[2018-12-24 12:47] LABS: Vitamin D,25 Hydroxy 25.3 ng/mL (29.95-100.01)
[2018-12-24 13:05] LABS: AST(SGOT) 27 U/L (15-37); Alanine Aminotransfer ALT/SGPT 28 U/L (13-56); Albumin, Serum 3.5 g/dL (3.2-5.0); Alkaline Phosphatase 117 U/L (45-117); Anion Gap 5 (5-15); BUN 16 mg/dL (7-18); BUN/Creat Ratio 17.6 RATIO (10-20); Calcium,Total 9.3 mg/dL (8.5-10.1); Chloride 109 mmol/L (98-107); Cholesterol 166 mg/dL (200); Creatinine, Serum 0.91 mg/dL (0.55-1.02); EST Glomerular Filtration Rate 65 mL/min (>60); Est Glom Filt Rate - Afr Amer 79 mL/min (>60); Globulin 3.6 g/dL (2.2-4.2); Glucose 109 mg/dL (74-106); High Density Lipoprotein 46 mg/dL; Potassium 3.9 mmol/L (3.5-5.1); Protein, Total 7.1 g/dL (6.4-8.2); Sodium Level 141 mmol/L (136-145); Triglycerides 161 mg/dL; Very Low Density Lipoprotein 32 mg/dL (5-40)
== END | disposition home or self-care (01) ==
PROVIDERS: Family Provider Family Medicine; PCP Family Medicine; Visit Provider Family Medicine
DX: I10 Essential (primary) hypertension (principal); R73.01 Impaired fasting glucose; R74.8 Abnormal levels of other serum enzymes; E78.1 Pure hyperglyceridemia
CPT/HCPCS: 36415; 80053; 80061; 82306; 83036; 85025

== ENCOUNTER → 2018-12-26 | Outpatient (CLI) | payer OTHER, SELFPAY ==
[2018-07-20 09:18] VITALS: BMI 21.7
--- NOTE | 2018-12-26 12:42 | CT_ITS ---
STUDY: LOW DOSE CT LUNG CANCER SCREENING REASON FOR EXAM: Female, 68 years old. 40 pack-year history of smoking. RADIATION DOSAGE (If Supplied By Facility): CTDIvol = ( 1.70 ) mGy, DLP = ( 56.58 ) mGycm TECHNIQUE: No contrast was administered. Low dose technique was utilized (average mAS-38 and kVp 120). 1.25 mm axial source images with a slice interval of 1.25-mm were reconstructed in lung windows. 2.5 mm axial source images with a slice interval of 2.5-mm were reconstructed in lung windows. 5.0 mm axial source images with a slice interval of 5.0-mm were reconstructed in soft tissue windows. Nodule measured using lung windows on PACS and/or independent workstation with automated measurement of minimum and maximum diameter. Nodule measurement reported as average diameter rounded to the nearest whole number. Growth is defined as an increase ins size of greater than 1.5 mm. COMPARISON: None. NODULES: No suspicious nodule is seen. Total lung nodules (excluding granulomas): 0 Emphysema: Hyperinflation. Focal scarring in the right lung apex. Increased markings at the lung bases more prominent on the left side with evidence of bronchiectasis suggestive of scarring. Aorta: Coronary arteries: Coronary artery calcification. Pulmonary artery: Unremarkable. Mediastinal nodes: Small benign-appearing mediastinal lymph nodes. Other chest and abdominal findings: CT/Low Dose CT Lung Screening IMPRESSION: Lung-RADS category 2 - Continue annual screening with LDCT in 12 months. IMPORTANT NOTES FOR USE: ACR Lung-RADS Version 1.0 Assessment Categories Release Date: October 06, 2013 Category: Coded 0-4 bases on nodule(s) with highest degree of suspicion. Negative screen is defined as categories 1 and 2; a positive screen is defined as categories 3 and 4. Category 3 and 4A nodules that are unchanged on interval CT should be coded as category 2, and individuals returned to screening in 12 months. Category 4X: Category 3 or 4 nodules with additional imaging findings that increase the suspicion of lung cancer, such as spiculation, GGN that doubles in size in 1 year, enlarged lymph notes, etc. Category Modifiers: S (significant finding unrelated to lung cancer) and C (prior history of treated lung cancer) may be added to the 0-4 Lung-RADS Electronically Signed: German Birmingham, at 15:52 EDT , Service support ,
== END | disposition home or self-care (01) ==
PROVIDERS: Family Provider Family Medicine; PCP Family Medicine; Referring Provider Family Medicine; Visit Provider Family Medicine
DX: Z12.2 Encounter for screening for malignant neoplasm of respiratory organs (principal); Z72.0 Tobacco use
CPT/HCPCS: G0297

== ENCOUNTER → 2019-12-26 09:27 | Outpatient (CLI) | payer OTHER, SELFPAY ==
[2018-07-20 09:18] VITALS: BMI 21.7
[2019-12-26 12:28] LABS: Absolute Lymphocyte Count 2.77 X10^3/uL (0.83-4.51); Absolute Neutrophil Count 4.5 X10^3/uL (2.0-7.7); Basophil# 0.04 X10^3/uL; Basophil% 0.5 % (0-1); Eosinophil# 0.24 X10^3/uL; Eosinophils% 2.9 % (0-5); Hematocrit 40.2 % (37-47); Hemoglobin 13.3 g/dL (12.0-15.0); Lymphocyte # 2.77 X10^3/ul (4.0); Lymphocyte % 33.8 % (19-41); Mean Corp Hgb Conc 33.1 g/dL (32-36); Mean Corpuscular Volume 93.7 fL (81-99); Mean Platelet Vol. 11.1 fl (6.2-12.0); Monocyte# 0.65 X10^3/uL; Monocyte% 7.9 % (0-10); NRBC Flagged by Analyzer 0 % (0-5); Neutrophil # 4.47 X10^3/uL (2.7-7.7); Neutrophil % 54.5 % (47-70); Platelet Count 251 K/mm3 (150-450); RBC Distribution Width CV 12.9 % (11.6-14.6); RBC Distribution Width SD 44.1 fl (35.1-43.9); Red Blood Count 4.29 M/mm3 (4.2-5.4); White Blood Count 8.2 K/mm3 (4.4-11.0)
[2019-12-26 12:39] LABS: AST(SGOT) 25 U/L (15-37); Alanine Aminotransfer ALT/SGPT 26 U/L (13-56); Albumin, Serum 3.5 g/dL (3.2-5.0); Alkaline Phosphatase 112 U/L (45-117); Anion Gap 4 (5-15); BUN 16 mg/dL (7-18); BUN/Creat Ratio 19.2 RATIO (10-20); Calcium,Total 8.6 mg/dL (8.5-10.1); Chloride 113 mmol/L (98-107); Cholesterol 185 mg/dL (200); Creatinine, Serum 0.83 mg/dL (0.55-1.02); EST Glomerular Filtration Rate 72 mL/min (>60); Est Glom Filt Rate - Afr Amer 88 mL/min (>60); Globulin 3.4 g/dL (2.2-4.2); Glucose 139 mg/dL (74-106); High Density Lipoprotein 41 mg/dL; Potassium 3.7 mmol/L (3.5-5.1); Protein, Total 6.9 g/dL (6.4-8.2); Sodium Level 144 mmol/L (136-145); Triglycerides 317 mg/dL; Very Low Density Lipoprotein 63 mg/dL (5-40)
[2019-12-26 12:47] LABS: Vitamin D,25 Hydroxy 28.6 ng/mL
[2019-12-26 13:47] LABS: Hemoglobin A1c 5.7 % (3.8-5.6)
== END ==
PROVIDERS: PCP Family Medicine; Visit Provider Family Medicine
DX: I10 Essential (primary) hypertension (principal); E78.1 Pure hyperglyceridemia; R73.01 Impaired fasting glucose; I25.10 Atherosclerotic heart disease of native coronary artery without angina pectoris; E55.9 Vitamin D deficiency, unspecified
CPT/HCPCS: 36415; 80053; 80061; 82306; 83036; 85025

== ENCOUNTER → 2019-12-30 12:11 | Outpatient (CLI) | payer OTHER, SELFPAY ==
[2018-07-20 09:18] VITALS: BMI 21.7
--- NOTE | 2019-12-30 12:16 | CT_ITS ---
STUDY: LOW DOSE CT LUNG CANCER SCREENING REASON FOR EXAM: Female, 69 years old. LUNG CANCER SCREENING, / PPD X 49 YRS, KR=123,HTN RADIATION DOSAGE (If Supplied By Facility): CTDIvol = ( 2.01 ) mGy, DLP = ( 66.45 ) mGycm TECHNIQUE: No contrast was administered. Low dose technique was utilized (average mAS-38 and kVp 120). 1.25 mm axial source images with a slice interval of 1.25-mm were reconstructed in lung windows. 2.5 mm axial source images with a slice interval of 2.5-mm were reconstructed in lung windows. 5.0 mm axial source images with a slice interval of 5.0-mm were reconstructed in soft tissue windows. Nodule measured using lung windows on PACS and/or independent workstation with automated measurement of minimum and maximum diameter. Nodule measurement reported as average diameter rounded to the nearest whole number. Growth is defined as an increase ins size of greater than 1.5 mm. COMPARISON: 12/26/2018 NODULES: No suspicious nodule is seen. Total lung nodules (excluding granulomas): 0 Emphysema: Hyperinflation. Focal scarring in the right lung apex. Increased markings at the lung bases more prominent on the left side with evidence of bronchiectasis suggestive of scarring. Aorta: Coronary arteries: Coronary artery calcification. Pulmonary artery: Unremarkable. Mediastinal nodes: Small benign-appearing mediastinal lymph nodes. Other chest and abdominal findings: CT/Low Dose CT Lung Screening IMPRESSION: Lung-RADS category 2 - Continue annual screening with LDCT in 12 months. No interval change IMPORTANT NOTES FOR USE: ACR Lung-RADS Version 1.0 Assessment Categories Release Date: October 06, 2013 Category: Coded 0-4 bases on nodule(s) with highest degree of suspicion. Negative screen is defined as categories 1 and 2; a positive screen is defined as categories 3 and 4. Category 3 and 4A nodules that are unchanged on interval CT should be coded as category 2, and individuals returned to screening in 12 months. Category 4X: Category 3 or 4 nodules with additional imaging findings that increase the suspicion of lung cancer, such as spiculation, GGN that doubles in size in 1 year, enlarged lymph notes, etc. Category Modifiers: S (significant finding unrelated to lung cancer) and C (prior history of treated lung cancer) may be added to the 0-4 Lung-RADS Electronically Signed: Donta Boston MD at 13:12 EDT , Service support ,
== END ==
PROVIDERS: PCP Family Medicine; Referring Provider Family Medicine; Visit Provider Family Medicine
DX: F17.210 Nicotine dependence, cigarettes, uncomplicated (principal); Z12.2 Encounter for screening for malignant neoplasm of respiratory organs
CPT/HCPCS: G0297

== ENCOUNTER → 2020-05-27 06:53 | Outpatient (CLI) | payer OTHER, SELFPAY ==
[2018-07-20 09:18] VITALS: BMI 21.7
--- NOTE | 2020-05-27 06:55 | MRI_ITS ---
STUDY: MRI LEFT SHOULDER WITH AND WITHOUT CONTRAST REASON FOR EXAM: Left shoulder pain, impingement syndrome, evaluate for mass. TECHNIQUE: Standardized fat and water weighted pulse sequences were obtained in all 3 orthogonal planes before and after intravenous administration of 11 mL of Dotarem. COMPARISON: Radiographs 04/30/2020. FINDINGS: There is supraspinatus tendinosis and a small linear near full-thickness tear of the articular surface of the distal anterior supraspinatus tendon at the greater tuberosity insertion (T2 coronal image 6) with delamination (T2 coronal images 7-10). Normal infraspinatus tendon. Normal subscapularis tendon. Normal teres minor tendon. Normal supraspinatus muscle. Normal infraspinatus muscle. Normal subscapularis muscle. Normal teres minor muscle. There is glenohumeral arthrosis with marginal osteophytes of the humeral head and chondral thinning (T2 coronal images 9-12). There is mild subchondral cystic change of the greater tuberosity. There is prominent yellow marrow in the greater tuberosity (T2 sagittal images 14, 15), accounting for the radiolucency on radiographs. There is no bone tumor of the proximal humerus. Normal biceps labral complex. There is tendinosis of the intracapsular long biceps tendon (T2 sagittal images 7-10). There is degeneration of the labrum. There is a glenohumeral joint effusion and diffuse contrast enhancing synovitis in the glenohumeral joint including the axillary bursa, subscapularis recess and bicipital tendon sheath (postcontrast T1 coronal images 4-13). There is acromioclavicular arthrosis with mild hypertrophic changes effacing the subacromial fat (T2 sagittal image 8). There is a Type I morphology (flat undersurface), with a neutral orientation. There is no subacromial-subdeltoid bursal fluid. Normal visualized coracohumeral and coracoacromial ligaments. Normal deltoid muscle. Normal trapezius muscle. MRI/Upper Ext Joint Only W/WO Cont IMPRESSION: Small linear near full-thickness tear with delamination and tendinosis of the supraspinatus tendon. 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 Glenohumeral joint effusion and contrast enhancing synovitis in the glenohumeral joint. Tendinosis of the long biceps tendon. Acromioclavicular arthrosis. No demonstrated osseous tumor of the proximal humerus with pseudocyst appearance from prominent yellow marrow in the greater tuberosity. Electronically Signed: Chang Espinoza MD at 8:51 EST Tel , Service support ,
[2020-05-27 07:41] LABS: Creatinine, Serum 0.78 mg/dL (0.55-1.02); EST Glomerular Filtration Rate 78 mL/min (>60); Est Glom Filt Rate - Afr Amer 94 mL/min (>60)
== END ==
PROVIDERS: PCP Family Medicine; Referring Provider Physician Assistant; Visit Provider Physician Assistant
DX: M75.42 Impingement syndrome of left shoulder (principal); M75.00 Adhesive capsulitis of unspecified shoulder
CPT/HCPCS: 36415; 73223; 82565; A9575

== ENCOUNTER → 2020-07-01 08:18 | Outpatient (CLI) | payer OTHER, SELFPAY ==
[2018-07-20 09:18] VITALS: BMI 21.7
--- NOTE | 2020-07-01 08:22 | NM_ITS ---
CLINICAL: 70-year-old female with history of left shoulder pain. LIMITED PLANAR 99m Tc MDP RADIONUCLIDE BONE SCINTIGRAPHY COMPARISON: Plain film radiograph report left humerus 06/17/2020, MRI of the left shoulder report 05/27/2020 FINDINGS: Following the intravenous administration of 25.4 mCi of 99m Tc MDP, limited bone acquisitions of the [id number]-[id number] thoracic spine, chest reveal: 1. Increased radiopharmaceutical concentration is defined in the acromioclavicular compartments of both shoulders, glenohumeral compartment of the left shoulder, mid cervical spine posteriorly on the left and right. 2. The remaining skeletal structures are scintigraphically unremarkable. NM/Bone Scan Limited Area IMPRESSION: 1. The increase in tracer concentration identified in the bilateral shoulders, cervical spine is most consistent with degenerative arthritis. 2. No other definitive scintigraphic abnormalities are demonstrated. Electronically Signed: Schuyler Obrien DO at 22:16 EST Tel , Service support ,
== END ==
PROVIDERS: PCP Family Medicine; Referring Provider Orthopaedic Surgery; Visit Provider Orthopaedic Surgery
DX: M85.622 Other cyst of bone, left upper arm (principal); M75.42 Impingement syndrome of left shoulder; M75.00 Adhesive capsulitis of unspecified shoulder
CPT/HCPCS: 78300

== ENCOUNTER → 2021-03-25 09:14 | Outpatient (CLI) | payer OTHER, SELFPAY ==
[2021-03-25 09:55] LABS: Absolute Lymphocyte Count 2.72 X10^3/uL (0.83-4.51); Absolute Neutrophil Count 2.8 X10^3/uL (2.0-7.7); Basophil# 0.05 X10^3/uL; Basophil% 0.8 % (0-1); Eosinophil# 0.11 X10^3/uL; Eosinophils% 1.8 % (0-5); Hematocrit 42.5 % (37-47); Hemoglobin 14.1 g/dL (12.0-15.0); Lymphocyte # 2.72 X10^3/ul (0.83-4.51); Lymphocyte % 43.6 % (19-41); Mean Corp Hgb Conc 33.2 g/dL (32-36); Mean Corpuscular Hgb 31.5 pg (27.0-32.0); Mean Corpuscular Volume 95.1 fL (81-99); Monocyte# 0.52 X10^3/uL; Monocyte% 8.3 % (0-10); NRBC Flagged by Analyzer 0 % (0-5); Neutrophil # 2.83 X10^3/uL (2.7-7.7); Neutrophil % 45.3 % (47-70); Platelet Count 296 K/mm3 (150-450); RBC Distribution Width CV 12.6 % (11.6-14.6); RBC Distribution Width SD 43.9 fl (35.1-43.9); Red Blood Count 4.47 M/mm3 (4.2-5.4); White Blood Count 6.2 K/mm3 (4.4-11.0)
[2021-03-25 10:43] LABS: Vitamin D,25 Hydroxy 42.8 ng/mL
[2021-03-25 10:45] LABS: ALB/GLOB Ratio 0.9 RATIO (0.9-2.4); AST(SGOT) 26 U/L (15-37); Alanine Aminotransfer ALT/SGPT 28 U/L (13-56); Albumin, Serum 3.4 g/dL (3.2-5.0); Alkaline Phosphatase 104 U/L (45-117); Anion Gap 4 (5-15); BUN 16 mg/dL (7-18); BUN/Creat Ratio 21.8 RATIO (10-20); Calcium,Total 9.1 mg/dL (8.5-10.1); Chloride 111 mmol/L (98-107); Cholesterol 182 mg/dL (200); Creatinine, Serum 0.74 mg/dL (0.55-1.02); EST Glomerular Filtration Rate 83 mL/min (>60); Est Glom Filt Rate - Afr Amer 101 mL/min (>60); Globulin 3.8 g/dL (2.2-4.2); Glucose 113 mg/dL (74-106); High Density Lipoprotein 48 mg/dL; Potassium 3.5 mmol/L (3.5-5.1); Protein, Total 7.2 g/dL (6.4-8.2); Sodium Level 141 mmol/L (136-145); Triglycerides 137 mg/dL; Very Low Density Lipoprotein 27 mg/dL (5-40)
== END ==
PROVIDERS: PCP Family Medicine; Referring Provider Family Medicine; Visit Provider Family Medicine
DX: I10 Essential (primary) hypertension (principal); M81.0 Age-related osteoporosis without current pathological fracture
CPT/HCPCS: 36415; 80053; 80061; 82306; 85025

== ENCOUNTER 2021-07-07 08:54 | Outpatient (CLI) | payer BC, SELFPAY ==
[2021-07-07 10:12] LABS: Hemoglobin 13.3 g/dL (12.0-15.0); Mean Corp Hgb Conc 33.3 g/dL (32-36); Mean Corpuscular Hgb 31.5 pg (27.0-32.0); Mean Corpuscular Volume 94.8 fL (81-99); Mean Platelet Vol. 10.3 fl (6.2-12.0); Platelet Count 287 K/mm3 (150-450); RBC Distribution Width CV 12.7 % (11.6-14.6); RBC Distribution Width SD 44.3 fl (35.1-43.9); Red Blood Count 4.22 M/mm3 (4.2-5.4); White Blood Count 7.2 K/mm3 (4.4-11.0)
[2021-07-07 10:36] LABS: Vitamin B12 442 pg/mL (211-911)
[2021-07-07 11:19] LABS: ALB/GLOB Ratio 1.1 RATIO (0.9-2.4); AST(SGOT) 25 U/L (15-37); Alanine Aminotransfer ALT/SGPT 23 U/L (13-56); Albumin, Serum 3.4 g/dL (3.2-5.0); Alkaline Phosphatase 121 U/L (45-117); Anion Gap 7 (5-15); BUN 13 mg/dL (7-18); Calcium,Total 8.9 mg/dL (8.5-10.1); Chloride 109 mmol/L (98-107); Creatinine, Serum 0.81 mg/dL (0.55-1.02); EST Glomerular Filtration Rate 74 mL/min (>60); Est Glom Filt Rate - Afr Amer 89 mL/min (>60); Globulin 3.2 g/dL (2.2-4.2); Glucose 92 mg/dL (74-106); Potassium 4.2 mmol/L (3.5-5.1); Protein, Total 6.6 g/dL (6.4-8.2); Sodium Level 142 mmol/L (136-145); Thyroid Stim Hormone (TSH) 0.66 uIU/mL (0.358-3.74)
[2021-07-08 15:08] LABS: Free Kappa Light Chains 26.9 mg/L (3.3-19.4); Free Lambda Light Chains 12.9 mg/L (5.7-26.3)
== END 2021-07-07 23:59 | disposition short-term general hospital (02) ==
PROVIDERS: PCP Family Medicine; Referring Provider Psychiatry & Neurology Neurology; Visit Provider Psychiatry & Neurology Neurology
DX: G24.9 Dystonia, unspecified (principal); G62.9 Polyneuropathy, unspecified
CPT/HCPCS: 36415; 80053; 82140; 82607; 82746; 83883; 84443; 85027

== ENCOUNTER 2021-07-18 11:17 | Outpatient (CLI) | payer BC, SELFPAY ==
[2021-07-21 15:08] LABS: Albumin 3.4 g/dL (2.9-4.4); Alpha-1-Globulins 0.3 g/dL (0.0-0.4); Alpha-2-Globulins 0.7 g/dL (0.4-1.0); Immunoglobulin A 167 mg/dL (87-352); Immunoglobulin G 985 mg/dL (586-1602); Immunoglobulin M 69 mg/dL (26-217); PROEL- TOTAL PROTEIN 6.4 g/dL (6.0-8.5)
== END 2021-07-18 23:59 | disposition home or self-care (01) ==
LOC: MTLAB 11:18
PROVIDERS: PCP Family Medicine; Referring Provider Psychiatry & Neurology Neurology; Visit Provider Psychiatry & Neurology Neurology
DX: G62.9 Polyneuropathy, unspecified (principal)
CPT/HCPCS: 36415; 82784; 84165; 86334; 86335

== ENCOUNTER 2021-08-12 09:09 | Outpatient (CLI) | payer BC, SELFPAY ==
--- NOTE | 2021-08-12 09:30 | MRI_ITS ---
STUDY: MRI BRAIN WITH AND WITHOUT CONTRAST REASON FOR EXAM: Female, 71 years old. Parkinsons SPEECH CHANGES, involuntary limb movement TECHNIQUE: Standardized multiplanar fat and water weighted pulse sequences were obtained. 10ml Dotarem via IV was administered for the contrast portion of the examination. COMPARISON: Head CT dated August 16, 2011 FINDINGS: There is mild cerebral atrophy with widening of the extra-axial spaces and ventricular dilatation. Normal white matter tracts of the supratentorial brain. There is no evidence for recent intracranial ischemia or other cause of cytotoxic edema on diffusion weighted imaging (DWI). Normal T2* images of the brain without demonstrated susceptibility artifact. There is no demonstrated hemosiderin stain. No focal brain parenchymal lesions are present. No suspicious edema or mass effect is seen. No demonstrated abnormal enhancement of the parenchyma or meninges or dura. No visualized extra-axial fluid collection or midline shift. Normal bilateral basal ganglia. Normal thalami. There is no extra-axial fluid accumulation. Normal flow voids within the major intracranial circulation suggesting patency by spin echo criteria. Normal venous enhancement. There is no enhancing intra-axial or extra-axial abnormality. Normal sella turcica, pituitary gland, infundibular stalk, optic chiasm and hypothalamus. Normal tectal plate and pineal gland. Normal midbrain, judy and medulla. Normal cerebellum. Normal basal cisterns. Normal bilateral temporal bones. Normal bilateral internal auditory canals. No demonstrated orbital abnormality, within the constraints of a routine brain study. Normal visualized paranasal sinuses. Normal calvarium and skull base. Normal visualized soft tissue structures. Normal visualized upper cervical spine. MRI/Brain W/WO Contrast IMPRESSION: 1. Involutional changes of the brain, as described above. 2. No demonstrated acute infarct or intracranial hemorrhage 3. No focal brain parenchymal lesions are present. No suspicious edema or mass effect is seen. No demonstrated abnormal enhancement of the parenchyma or meninges or dura. No visualized extra-axial fluid collection or midline shift. Electronically Signed: Lamberto Chris MD at 12:35 EST ,
--- NOTE | 2021-08-12 09:48 | CDU_ITS ---
Reason For Study: Carotid bruit Rt. Velocities/BP Lt. Velocities/BP Prox CCA 63/13.4 cm/sec. Prox CCA 58.1/16.3 cm/sec. Mid CCA 55.2/16 cm/sec. Mid CCA 65.4/21.2 cm/sec. Dist CCA 48.6/13.4 cm/sec. Dist CCA 69.1/21.2 cm/sec. Prox ICA 101/27.4 cm/sec. Prox ICA 104.7/29.8 cm/sec. Mid ICA 79.1/24.3 cm/sec. Mid ICA 86.4/22.5 cm/sec. Dist ICA 82.7/26.1 cm/sec. Dist ICA 97.4/27.9 cm/sec. Rt. ICA/CCA = 1.83. Lt. ICA/CCA = 1.60. Prox ECA 158.8/13.7 cm/sec. Prox ECA 141.2/4.2 cm/sec. Rt. Vert. 60.5/13.9 cm/sec. Lt. Vert. 54.2/19 cm/sec. Right Extracranial There is heterogeneous, irregular atherosclerotic plaque noted in the right common carotid artery. There is heterogeneous, irregular atherosclerotic plaque noted in the right internal carotid artery. The atherosclerotic plaque causes acoustic shadowing. There is heterogeneous, irregular atherosclerotic plaque noted in the right external carotid artery. Antegrade flow is noted in the right vertebral artery. Left Extracranial There is heterogeneous, irregular atherosclerotic plaque noted in the left common carotid artery. There is heterogeneous, irregular atherosclerotic plaque noted in the left internal carotid artery. The atherosclerotic plaque causes acoustic shadowing. There is heterogeneous, irregular atherosclerotic plaque noted in the left external carotid artery. Antegrade flow is noted in the left vertebral artery. VL/Carotid Duplex Ultrasound Interpretation Summary Irregular calcific plaque with shadowing at the proximal right internal carotid artery with less than 50% stenosis Less than 50% stenosis right external carotid artery Irregular calcific plaque with shadowing at the proximal left internal carotid artery with less than 50% stenosis Less than 50% stenosis left external carotid Patent, antegrade vertebrals bilaterally Ordering Physician: Jey Manuel Referring Physician: Vinh Abdullahi Performed By: Zenaida Doll RVT
[2021-08-12 12:50] LABS: CREATININE FINGERSTICK < 0.6 mg/dL (0.55-1.02); EGFR FINGERSTICK > 60.0000 mL/min (>60)
== END 2021-08-12 23:59 | disposition home or self-care (01) ==
PROVIDERS: PCP Family Medicine; Referring Provider Psychiatry & Neurology Neurology; Visit Provider Psychiatry & Neurology Neurology
DX: R09.89 Other specified symptoms and signs involving the circulatory and respiratory systems (principal); G20 Parkinson's disease
CPT/HCPCS: 70553; 93880; A9575

== ENCOUNTER 2021-08-31 06:21 | Outpatient (CLI) | payer BC, SELFPAY ==
--- NOTE | 2021-08-31 09:34 | NEURO ---
NCS and/or EMG Patient Report Ordering Doctor: Jey Manuel DATE OF SERVICE: 08/31/21 Keysha presents for electrodiagnostic testing of the lower limbs. Complains of intermittent numbness and tingling in the legs and a jerking sensation in the right leg, which happens intermittently. Electrodiagnostic findings:Normal peroneal motor responses noted bilaterally. Tibial motor responses are within normal limits. Normal peroneal and tibial F waves. H reflex normal bilaterally. Prolonged sural latency is noted bilaterally. Normal superficial peroneal and medial plantar responses. Needle EMG testing demonstrates no evidence of denervation in any muscles tested. Motor unit action potentials are of normal amplitude and duration. Electrodiagnostic impression: This is an abnormal study in the lower limbs. 1. 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 2. No electrodiagnostic evidence for lumbosacral radiculopathy. 3. no electrodiagnostic evidence for peripheral polyneuropathy.
== END 2021-08-31 23:59 | disposition home or self-care (01) ==
LOC: PSN 06:23
PROVIDERS: PCP Family Medicine; Visit Provider Psychiatry & Neurology Neurology
DX: G62.9 Polyneuropathy, unspecified (principal)
CPT/HCPCS: 95886; 95912

== ENCOUNTER → 2022-07-27 | Outpatient (CLI) | payer BC, SELFPAY ==
--- NOTE | 2022-07-27 12:57 | CT_ITS ---
EXAM: CT CHEST, LUNG CANCER SCREENING WITHOUT INTRAVENOUS CONTRAST CLINICAL INDICATION: SMOKER TECHNIQUE: Helically acquired images were obtained of the chest without intravenous contrast using low dose (LDCT) lung cancer screening protocol. This CT exam was performed using one or more of the following dose reduction techniques: automated exposure control, adjustment of the mA and/or kV according to patient size, and/or use of iterative reconstruction technique. This report was created using [employer] report generation technology. COMPARISON: 12/30/2019 FINDINGS: LUNGS AND PLEURAL SPACES: Unremarkable. No mass. No consolidation or edema. No pleural effusion or thickening. No pneumothorax. HEART: Unremarkable. Heart size is normal. No pericardial effusion. No significant coronary artery calcifications. MEDIASTINUM: Unremarkable. No mediastinal or hilar adenopathy. Esophagus is unremarkable. No hiatal hernia. THYROID: Unremarkable. No thyroid lesions. BONES/JOINTS: Unremarkable. No suspicious lytic or blastic abnormality. VASCULATURE: Unremarkable. Thoracic aorta is non-dilated. LYMPH NODES: Unremarkable. No enlarged lymph nodes. CT/Low Dose CT Lung Screening IMPRESSION: 1. Lung-RADS score: 1 - Recommend continued annual screening with low-dose CT (LDCT) in 12 months. 2. No acute pulmonary abnormality. There has been no change from the reference exam. Electronically Signed: Carlos Araiza MD at 16:18 EST ,
== END | disposition home or self-care (01) ==
LOC: CT 12:56
PROVIDERS: PCP Family Medicine; Referring Provider Family Medicine; Visit Provider Family Medicine
DX: Z12.2 Encounter for screening for malignant neoplasm of respiratory organs (principal); F17.200 Nicotine dependence, unspecified, uncomplicated
CPT/HCPCS: 71271

== ENCOUNTER → 2023-05-30 | Outpatient (CLI) | payer MEDICARE, SELFPAY ==
--- NOTE | 2023-05-30 07:25 | CT_ITS ---
STUDY: CT ABDOMEN AND PELVIS WITHOUT CONTRAST REASON FOR EXAM: Female, 73 years old. 4 day history of hematuria. RADIATION DOSAGE (If Supplied By Facility): CTDIvol = ( 6.04 ) mGy, DLP = ( 274.82 ) mGycm TECHNIQUE: Transaxial images were obtained from the dome of the diaphragm to the symphysis pubis without oral contrast, and without intravenous contrast. Sagittal and coronal images were reconstructed. Individualized dose optimization techniques were used for this CT. COMPARISON: None. FINDINGS: Minimal linear scarring at the lung bases. Coronary artery calcification. Normal liver. Normal gallbladder and extrahepatic biliary system. Normal spleen. Normal pancreas. Normal bilateral adrenal glands. Normal right kidney. There is a 3.1 cm x 3.2 cm cyst in the upper midpole of the left kidney. There is also evidence of a 1.4 cm cyst in the lateral upper pole of the left kidney. Punctate nonobstructive calculus in the lower pole calyx of the left kidney. Normal visualized stomach. Normal small intestine. There are scattered colonic diverticula consistent with diverticulosis. The appendix is visualized and appears normal. There is diffuse atherosclerotic calcification of the abdominal aorta, without a demonstrated aneurysm. Normal inferior vena cava. Normal retroperitoneum. The bladder is empty at the time of the examination. There is a 5.5 mm calculus at the right ureterovesical junction as it enters the urinary bladder. There is absence of the uterus consistent with a prior hysterectomy. Normal abdominal wall. There are diffuse degenerative changes of the visualized lumbar spine. Loss of the normal lumbar lordosis. CT/Abdomen/Pelvis without Cont IMPRESSION: 5.5 mm calculus at the right ureterovesical junction as the ureter enters the urinary bladder. Left renal cysts. Electronically Signed: German Birmingham MD at 9:52 EST ,
== END | disposition home or self-care (01) ==
LOC: CT 07:23
PROVIDERS: PCP Family Medicine; Referring Provider Family Medicine; Visit Provider Family Medicine
DX: R31.9 Hematuria, unspecified (principal)
CPT/HCPCS: 74176

== ENCOUNTER → 2023-10-15 | Outpatient (CLI) | payer MEDICARE, SELFPAY ==
--- NOTE | 2023-10-15 16:38 | RAD_ITS ---
STUDY: X-RAY - LUMBAR SPINE REASON FOR EXAM: Female, 73 years old. DDD TECHNIQUE: 5 view(s) of the lumbar spine were obtained including oblique views. COMPARISON: Comparison is made with prior study dated May 22, 2018. FINDINGS: There is straightening of the normal lumbar lordosis. There is a levoscoliosis of the lumbar spine. Stable minimal anterolisthesis of L4 on L5 without spondylolysis. There is multilevel endplate spondylosis of the lumbar vertebrae. There is multi-level degenerative disc disease with multi-level disc space narrowing. Facet joint osteoarthritis. There is atherosclerotic calcification of the abdominal aorta without a demonstrated aneurysm. RAD/L/S Spine Min 4 Views IMPRESSION: Degenerative changes of the spine, as detailed above. Levoconvex scoliosis. Electronically Signed: German Birmingham MD at 9:04 EDT ,
--- NOTE | 2023-10-15 16:39 | RAD_ITS ---
EXAM: XR ABDOMEN, 1 VIEW CLINICAL INDICATION: BLOATING AND GAS TECHNIQUE: Frontal supine view of the abdomen/pelvis. COMPARISON: No relevant prior studies available. FINDINGS: LOWER THORAX: Visualized lung bases are clear. GASTROINTESTINAL TRACT: Moderate stool throughout the colon. No bowel obstruction. ORGANS: Unremarkable as visualized. No organomegaly. No abnormal calcifications. BONES/JOINTS: Degenerative changes of the spine. No pars defects. Degenerative disc disease is moderate to severe at L2-3. Diffuse osteopenia. Focal leftward curvature of the lumbar spine centered at L3. SOFT TISSUES: No acute pathology. RAD/Abdomen Single View IMPRESSION: Degenerative changes at multiple levels with no acute or healing fracture or malalignment. Moderate colonic stool burden. Electronically Signed: Shelton Del Real MD at 4:31 EDT ,
== END | disposition home or self-care (01) ==
LOC: MTRAD 16:36
PROVIDERS: PCP Family Medicine; Referring Provider Family Medicine; Visit Provider Family Medicine
DX: M54.16 Radiculopathy, lumbar region (principal); R14.0 Abdominal distension (gaseous)
CPT/HCPCS: 72110; 74018

== ENCOUNTER → 2024-10-30 | Outpatient (CLI) | payer MEDICARE, SELFPAY ==
[2024-10-30 10:47] LABS: Absolute Lymphocyte Count 2.23 X10^3/uL (0.83-4.51); Absolute Neutrophil Count 5.8 X10^3/uL (2.0-7.7); Basophil# 0.04 X10^3/uL; Basophil% 0.4 % (0-1); Eosinophils% 3.3 % (0-5); Hematocrit 40.7 % (37-47); Hemoglobin 13.5 g/dL (12.0-15.0); Lymphocyte # 2.23 X10^3/ul (0.83-4.51); Lymphocyte % 24.6 % (19-41); Mean Corp Hgb Conc 33.2 g/dL (32-36); Mean Corpuscular Hgb 31.9 pg (27.0-32.0); Mean Corpuscular Volume 96.2 fL (81-99); Mean Platelet Vol. 10.9 fl (6.2-12.0); Monocyte# 0.65 X10^3/uL; Monocyte% 7.2 % (0-10); NRBC Flagged by Analyzer 0 % (0-5); Neutrophil # 5.83 X10^3/uL (2.7-7.7); Neutrophil % 64.3 % (47-70); Platelet Count 214 K/mm3 (150-450); RBC Distribution Width CV 12.6 % (11.6-14.6); RBC Distribution Width SD 44.2 fl (35.1-43.9); Red Blood Count 4.23 M/mm3 (4.2-5.4); White Blood Count 9.1 K/mm3 (4.4-11.0)
[2024-10-30 11:05] LABS: Color, Urine Yellow (Yellow); Glucose, Dipstick Normal (Normal); Ketone-Dipstick Negative (Negative); Leukocyte Esterase-Dipstick 25 /ul (Negative); Nitrite-Dipstick Negative (Negative); Occult Blood-Urine 25 /ul (Negative); Protein-Dipstick 30 mg/dl (Negative); Urine Bilirubin Dipstick Negative (Negative); Urine Clarity Clear (Clear); Urine Urobilinogen Normal (Normal)
[2024-10-30 11:37] LABS: Hemoglobin A1c 5.7 % (<=5.6)
[2024-10-30 12:20] LABS: ALB/GLOB Ratio 1.1 RATIO (0.9-2.4); AST(SGOT) 35 U/L (<=31); Alanine Aminotransfer ALT/SGPT 23 U/L (<=34); Albumin, Serum 3.6 g/dL (3.4-4.8); Alkaline Phosphatase 95 U/L (35-104); Anion Gap 12 (5-15); BUN 15 mg/dL (4-19); BUN/Creat Ratio 16.4 RATIO (10-20); Calcium,Total 9.2 mg/dL (7.6-11.0); Carbon Dioxide 23.1 mmol/L (21.0-32.0); Chloride 108 mmol/L (98-108); Cholesterol 161 mg/dL (<=200); Creatinine, Serum 0.94 mg/dL (0.70-1.20); EST Glomerular Filtration Rate 64 (>60); Globulin 3.2 g/dL (2.2-4.2); Glucose 110 mg/dL (70-99); High Density Lipoprotein 42 mg/dL; Low Density Lipoprotein Calc. 96 mg/dL; Potassium 4.1 mmol/L (3.3-5.1); Protein, Total 6.7 g/dL (5.9-8.4); Sodium Level 142 mmol/L (133-145); Total Bilirubin 0.21 mg/dL (0.00-1.30); Triglycerides 116 mg/dL; Very Low Density Lipoprotein 23 mg/dL (5-40); Vitamin D,25 Hydroxy 29.5 ng/mL (30-100); cholesterol:hdl ratio screen 3.88
== END | disposition home or self-care (01) ==
LOC: MTLAB 08:53
PROVIDERS: PCP Family Medicine; Referring Provider Family Medicine; Visit Provider Family Medicine
DX: I25.10 Atherosclerotic heart disease of native coronary artery without angina pectoris (principal); I10 Essential (primary) hypertension; M81.0 Age-related osteoporosis without current pathological fracture; R73.01 Impaired fasting glucose
CPT/HCPCS: 36415; 80053; 80061; 81002; 82306; 83036; 85025

== ENCOUNTER → 2024-12-24 | Outpatient (CLI) | payer MEDICARE, SELFPAY ==
[2024-12-24 12:06] LABS: Hematocrit 37.1 % (37-47); Hemoglobin 12.8 g/dL (12.0-15.0); Immature Granulocytes Count 0.020 X10^3/uL (0.0-0.0); Mean Corp Hgb Conc 34.5 g/dL (32-36); Mean Corpuscular Volume 89.8 fL (81-99); Mean Platelet Vol. 10.9 fl (6.2-12.0); NRBC Flagged by Analyzer 0 % (0-5); Platelet Count 270 K/mm3 (150-450); RBC Distribution Width CV 13.2 % (11.6-14.6); RBC Distribution Width SD 43.3 fl (35.1-43.9); Red Blood Count 4.13 M/mm3 (4.2-5.4); White Blood Count 8.9 K/mm3 (4.4-11.0)
[2024-12-24 12:46] LABS: AST(SGOT) 28 U/L (<=31); Alanine Aminotransfer ALT/SGPT 17 U/L (<=34); Albumin, Serum 3.7 g/dL (3.4-4.8); Alkaline Phosphatase 93 U/L (35-104); Anion Gap 12 (5-15); BUN 11 mg/dL (4-19); BUN/Creat Ratio 13.2 RATIO (10-20); CRP < 3.00 mg/L (0.0-3.0); Calcium,Total 9.1 mg/dL (7.6-11.0); Carbon Dioxide 22.2 mmol/L (21.0-32.0); Chloride 109 mmol/L (98-108); Globulin 2.4 g/dL (2.2-4.2); Glucose 78 mg/dL (70-99); Potassium 2.6 mmol/L (3.3-5.1)
--- OUTSIDE RECORDS SUMMARY | 2024-12-24 20:29 | XMS RPT_ITS | CCD ---
Author Organization [facility] Care Team Providers Care Deputy Felony Clerk Name Role Phone Eden Nunez N Unavailable Eden Nunez N Unavailable Beatrice Nunezica N Unavailable NunezBeatriceEden N Unavailable Dr. Vinh Abdullahi Primary Care Provider [phone] Dr. Vinh Abdullahi Referring Provider [phone] Jey Manuel Attending Provider Dr. Gary Farah Attending Provider [phone] Dr. Jey Manuel Referring Provider Dr. Vinh Abdullahi Primary Care Provider [phone] Vinh Abdullahi Referring Provider Dr. Jey Manuel Attending Provider Unavailable Primary Care Provider Unavailabl e Unavailable Primary Care Provider Unavailshoaib e JOSEF SAVAGE Referring Unavailab OJSEF Taylor Attending Unavailab Dr. Vinh Feliz DO Primary Care Provider [phone] Dr. Vinh Abdullahi DO Attending Provider [phone] Vinh Abdullahi DO Referring Provider [phone] Vinh Abdullahi Referring Unavailable Vinh Abdullahi Primary Care Unavailable Vinh Abdullahi Unavailable Vinh Abdullahi Referring Unavailable Vinh Abdullahi Primary Care Unavailable Vinh Abdullahi Attending Unavailable Medications Current Medications Medication Drug Class(es) Dates Sig (Normalized) Sig (Original) atorvastatin 40 mg oral tablet (7 sources) HMG-CoA Reductase Inhibitor Start: 10-17-2022 take 1 tablet by mouth once atorvastatin (LIPITOR) 40 mg tablet Take 1 tablet by mouth every afternoon. 10/17/2022 Active Start: 01-21-2015 take 1 tablet by xavi th at bedtime Atorvastatin 40 MG tablet Active 40 mg PO AT BEDTIME January 21, 2015 12:00am Comment on above: Take 1 tablet by xavi th every afternoon. busPIRone hydrochloride 10 mg oral tablet (17 sources) Start: take 1 tablet by mouth once daily busPIRone (BUSPAR) 10 mg tablet Take 10 mg by mouth once daily. 12/16/2022 Active Start: 10-30-2022 take 1 tablet by xavi th three times daily Buspirone 10 mg tablet Active 10 mg PO THREE TIMES A DAY October 30, 2022 8:52am Start: 06-29-2022 End: 10-30-2022 take 1 tablet by mouth twice daily, then take 1 tablet by mouth three times daily Buspirone 10 mg tablet Discontinued 10 mg .ROUTE .COMPLEX 270 June 29, 2022 1:00am October 30, 2022 8:53am Take one tablet PO BID for one week then one tablet TID thereafter Start: 10-10-2021 End: 06-29-2022 take 1 tablet by mouth twice daily Buspirone 5 mg tablet Discontinued 0 .ROUTE .COMPLEX 180 March 31, 2022 2:29pm June 29, 2022 4:07pm TAKE 1 TAB BY MOUTH TWICE A DAY Comment on above: Take 10 mg by mouth once daily. Cognium (4 sources) Start: 07-07-2021 take 100 mg by mouth once daily Cognium Active 100 MG PO DAILY July 07, 2021 9:19am Start: 07-07-2021 take 100 mg by mouth once kari y Cognium Active 100 MG PO DAILY July 07, 2021 1:00am Start: 07-07-2021 take 100 mg by mouth once kari y Cognium Active 100 MG PO DAILY July 07, 2021 12:00am Cognium 100 mg tablet (1 source) Start: 07-07-2021 take 1 tablet by mouth once daily Cognium 100 mg tablet Active 100 mg PO DAILY July 07, 2021 1:00am gabapentin 400 mg oral capsule (12 sources) Anti-epileptic Agent Start: 07-07-2021 take 1 capsule by mouth three times daily Gabapentin 400 mg capsule Active 400 mg PO THREE TIMES A DAY July 07, 2021 1:00am Start: 07-20-2018 End: 07-07-2021 take 1 capsule by mouth three times daily Gabapentin 100 mg capsule Discontinued 100 mg PO THREE TIMES A DAY July 20, 2018 1:00am July 07, 2021 9:19am Comment on above: Take 400 mg by mouth three times daily. ibuprofen 800 mg oral tablet (5 sources) Nonsteroidal Anti-inflammatory Drug Start: 8 take 1 tablet by mouth three times daily as needed for pain Ibuprofen 800 MG tablet Active 800 mg PO 3 TIMES DAILY NEEDED as needed for Pain October 01, 2017 4:55am metoprolol tartrate 25 mg oral tablet (11 sources) beta-Adrenergic Deana Start: 3 take 1 tablet by mouth every twelve hours metoprolol tartrate, short acting, (LOPRESSOR) 25 mg tablet Take 1 tablet by mouth every 12 hours 6am/6pm. 11/10/2022 Active Start: 10-26-2011 take 1 tablet by xavi th twice daily Metoprolol Tartrate 25 MG tablet Active 25 mg PO TWICE A DAY January 21, 2015 12:00am Comment on above: Take 1 tablet by xavi th every 12 hours 6am/6pm. Tn-Qmr-Qzgvs-Calciu m Carb-K1 (Women's 50 Plus Multivitamin) 400 mcg-500 mg calcium-20 mcg tablet (5 sources) Start: 07-07-2021 take 1 tablet by mouth once daily Bw-Zjq-Xgpha-Calci um Carb-K1 (Women's 50 Plus Multivitamin) 400 mcg-500 mg calcium-20 mcg tablet Active 1 TABLET PO DAILY July 07, 2021 9:25am Start: 07-07-2021 Yh-Ldd-Vshft-C alcium Carb-K1 (Women's 50 Plus Multivitamin) 400 mcg-500 mg calcium-20 mcg tablet Active 1 {tbl} PO DAILY July 07, 2021 1:00am Start: 07-07-2021 take 1 tablet by xavi th once daily Sc-Ezc-Fbnrf-Calcium Carb-K1 (Women's 50 Plus Multivitamin) 400 mcg-500 mg calcium-20 mcg tablet Active 1 TABLET PO DAILY July 07, 2021 1:00am Start: 07-07-2021 take 1 tablet by xavi th once daily Hs-Lwz-Rcftr-Calcium Carb-K1 (Women's 50 Plus Multivitamin) 400 mcg-500 mg calcium-20 mcg tablet Active 1 TABLET PO DAILY July 07, 2021 12:00am rOPINIRole 1 mg oral tablet (20 sources) Nonergot Dopamine Agonist Start: 12-16-2022 take 5 tablets by mouth three times daily rOPINIRole (REQUIP) 1 mg tablet Take 5 mg by mouth three times daily. 12/16/2022 Active Start: 07-07-2021 End: 10-30-2022 take 1 tablet by mouth at bedtime Ropinirole 1 mg tablet Discontinued 1 mg PO AT BEDTIME 90 June 29, 2022 4:08pm October 30, 2022 8:53am Start: 01-21-2015 End: 07-07-2021 take 1 tablet by mouth three times daily Ropinirole 2 MG tablet extended release 24 hr Discontinued 2 mg PO THREE TIMES A DAY January 21, 2015 12:00am July 07, 2021 10:21am Comment on above: Take 5 mg by mouth t hree times daily. traMADol hydrochloride 50 mg oral tablet (13 sources) Opioid Agonist Start: 01-21-2015 traMADol (ULTRAM) 50 mg tablet Take 2 tablets by mouth as needed for pain. 11/17/2022 Active Start: 01-21-2015 take 100 mg by mouth twice daily Tramadol Active 100 MG PO TWICE A DAY January 21, 2015 12:00am Start: 12-04-2011 End: 12-22-2016 ULTRAM ER 100 MG [id number] t yunior as directed TRAMADOL HCL [id number] Josef Savage Start: 12-04-2011 ULTRAM ER 100 MG [id number] take as directed TRAMADOL HCL [id number] Josef Savage Start: 12-04-2011 ULTRAM ER 100 MG [id number] take as directed TRAMADOL HCL [id number] Josef Savage Comment on above: Take 2 tablets by mo uth as needed for pain. Zinc (5 sources) Start: 07-07-2021 take 50 mg by mouth once daily Zinc Active 50 MG PO DAILY July 07, 2021 9:25am Start: 07-07-2021 take 1 tablet by mouth once da roberto Zinc 50 mg tablet Active 50 mg PO DAILY July 07, 2021 1:00am Start: 07-07-2021 take 50 mg by mouth once daily Zinc Active 50 MG PO DAILY July 07, 2021 1:00am Start: 07-07-2021 take 50 mg by mouth once daily Zinc Active 50 MG PO DAILY July 07, 2021 12:00am Completed/Discontinued Medications Medication Drug Class(es) Dates Sig (Normalized) Sig (Original) acetaminophen 325 mg / HYDROcodone bitartrate 5 mg oral tablet (11 sources) Opioid Agonist Start: 04-24-2018 End: 04-29-2018 take 1-2 tablets by mouth every six hours as needed for pain Hydrocodone-Acetami nophen 1 TABLET tablet Discontinued 1 - 2 {tbl} PO EVERY 6 HOURS NEEDED as needed for Pain 28 10April 24, 2018 1:00am April 28, 2018 1:00am April 29, 2018 1:12am take 1-2 tablets po q6 hrs as needed prn Start: 04-24-2018 End: 04-29-2018 take 1-2 tablets by mouth every six hours as needed Hydrocodone-Acetaminophen Discontinued 1 - 2 TABLET PO EVERY 6 HOURS NEEDED 28 10April 24, 2018 1:00am April 29, 2018 1:12am take 1-2 tablets po q6 hrs as needed prn Start: 10-26-2011 End: 12-22-2016 take 1 tablet by mouth once daily HYDROCODONE-ACETAMINOPHEN 7.5-300 MG TAB S One tablet by mouth daily HYDROCODONE-ACETAMINOPHEN [id number] Josef Savage 30 ml bupivacaine hydrochloride 5 mg/ml injection (3 sources) Amide Local Anesthetic Start: 07-18-2024 End: 07-18-2024 BUPivacaine (PF) 0.5 % (5 mg/mL) 8 mL injection Start: 07-18-2024 End: 07-18-2024 8 mL, Injection - FOR ORTHO USE ONLY, ONCE, 1 dose, Starting on Sun07/18/24 at 1100, Until Sun07/18/24 at 1100 Start: 12-21-2022 End: 12-21-2022 BUPivacaine (PF) 0.5 % (5 mg /mL) 8 mL injection meloxicam 15 mg oral tablet (5 sources) Nonsteroidal Anti-inflammatory Drug Start: 08-13-2020 End: 07-07-2021 take 1 tablet by mouth once daily Meloxicam 15 mg tablet Discontinued 15 mg PO DAILY August 13, 2020 1:00am July 07, 2021 9:24am risperiDONE 4 mg oral tablet (4 sources) Atypical Antipsychotic Start: 10-26-2011 take 1 tablet by mouth once daily RISPERDAL 4 MG TABS One tablet by mouth daily RISPERIDONE [id number] Josef Savage simvastatin 80 mg oral tablet (4 sources) HMG-CoA Reductase Inhibitor Start: 10-26-2011 take 1 tablet by mouth once daily SIMVASTATIN 80 MG TABS One tablet by mouth daily SIMVASTATIN [id number] Josef Savage 1 ml triamcinolone acetonide 40 mg/ml injection (5 sources) Corticosteroid Start: 07-18-2024 End: 07-18-2024 triamcinolone acetonide 80 mg injection (KeNALog 40) Start: 07-18-2024 End: 07-18-2024 80 mg, Injection - FOR ORTHO USE ONLY, ONCE, 1 dose, Starting on Sun07/18/24 at 1100, Until Sun07/18/24 at 1100 Start: 12-21-2022 End: 12-21-2022 triamcinolone acetonide 80 m g injection (KeNALog 40) Start: 08-13-2020 End: 08-13-2020 Kenalog (triamcinolone aceto nide) 40 mg/mL suspension for injection Discontinued 80 MG INTRAARTIC ONCE August 13, 2020 1:18pm August 13, 2020 2:24pm Start: 04-30-2020 End: 04-30-2020 Kenalog (triamcinolone aceto nide) 40 mg/mL suspension for injection Discontinued 80 MG INTRAARTIC ONCE April 30, 2020 11:12am April 30, 2020 12:39pm Problems Active Problems Problem Classification Problem Date Documented Date Episodic/Chronic Anxiety disorders (5 sources) Anxiety; Translations: [Anxiety disorder, unspecified] 07-01-2022 Chronic Coronary atherosclerosis and other heart disease (1 source) Atherosclerotic heart disease of hoopa coronary artery without angina pectoris; Translations: [Atherosclerotic heart disease of hoopa coronary artery without angina pectoris] Onset: 11-04-2024 Chronic Disorders of lipid metabolism (5 sources) Hypercholesterolemia; Translations: [Pure hypercholesterolemia, unspecified] 10-25-2020 Chronic Essential hypertension (5 sources) Hypertensive disorder; Translations: [Essential (primary) hypertension] 10-25-2020 Chronic Osteoarthritis (7 sources) Arthritis; Translations: [Unspecified osteoarthritis, unspecified site] 10-25-2020 Chronic Osteoporosis (5 sources) Osteoporosis; Translations: [Age-related osteoporosis without current pathological fracture] 10-25-2020 Chronic Other circulatory disease (5 sources) Carotid bruit; Translations: [Other specified symptoms and signs involving the circulatory and respiratory systems] 10-11-2021 Episodic Other circulatory disease (2 sources) Other specified symptoms and signs involving the circulatory and respiratory systems; Translations: [Other symptoms involving cardiovascular system] Episodic Other hereditary and degenerative nervous system conditions (5 sources) Extrapyramidal disease; Translations: [Extrapyramidal and movement disorder, unspecified] 10-11-2021 Chronic Other hereditary and degenerative nervous system conditions (2 sources) Extrapyramidal and movement disorder, unspecified; Translations: [Unspecified extrapyramidal disease and abnormal movement disorder] Chronic Other hereditary and degenerative nervous system conditions (4 sources) Restless legs; Translations: [Restless legs syndrome] 07-01-2022 Chronic Other hereditary and degenerative nervous system conditions (1 source) Restless legs syndrome; Translations: [Restless legs syndrome (RLS)] 06-29-2022 Chronic Other nervous system disorders (5 sources) Carpal tunnel syndrome; Translations: [Carpal tunnel syndrome, unspecified upper limb] 10-25-2020 Chronic Other nervous system disorders (5 sources) Polyneuropathy; Translations: [Polyneuropathy, unspecified] 10-11-2021 Chronic Other nervous system disorders (2 sources) Polyneuropathy, unspecified; Translations: [Unspecified hereditary and idiopathic peripheral neuropathy] Chronic Other non-traumatic joint disorders (2 sources) Chronic pain of left upper limb; Translations: [Pain in left shoulder] 12-21-2022 Episodic Other non-traumatic joint disorders (1 source) Pain in left shoulder; Translations: [Pain in joint, shoulder region] 12-21-2022 Episodic Parkinson`s disease (6 sources) Parkinson's disease; Translations: [Parkinson's disease] Chronic Spondylosis; intervertebral disc disorders; other back problems (9 sources) Low back pain; Translations: [Back problem] 11-09-2011 Episodic Substance-related disorders (1 source) Nicotine dependence, cigarettes, uncomplicated; Translations: [Nicotine dependence, cigarettes, uncomplicated] Onset: 11-25-2024 Chronic Past or Other Problems Problem Classification Problem Date Documented Da te Episodic/Chronic Fracture of upper limb (6 sources) Fracture of clavicle; Translations: [Fracture of unspecified part of left clavicle, sequela] Onset: 12-22-2016 10-26-2011 Episodic Other connective tissue disease (2 sources) Pain in thumb ; Translations: [Pain in left finger(s)] Onset: 12-22-2016 12-22-2016 Episodic Other non-traumatic joint disorders (2 sources) Shoulder pain; Translations: [Pain in left shoulder] Onset: 12-22-2016 12-22-2016 Episodic Results Test Name Value Interpretation Reference Range Facility Absolute lymphocyte countOrd ered By: Vinh Abdullahi on 10-30-2024 Lymphocytes Auto (Unsp spec) [#/Vol] 2.23 10*3/uL 0.83-4.51 [facility] Absolute neutrophil countOrd ered By: Vinh Abdullahi on 10-30-2024 Neutrophils (Bld) [#/Vol] 5.8 10*3/uL 2.0-7.7 [facility] Anion gap in Serum or Plasma Ordered By: Vinh Abdullahi on 10-30-2024 Anion gap [Moles/Vol] 12 mmol/L 5-15 [facility] Automated lymphocyte count a s percentage of total leukocytesOrdered By: Vinh Abdullahi on 10-30-2024 Lymphocytes/100 WBC Auto (Unsp spec) 24.6 % -41 [facility] BUN/creatinine ratioOrdered By: Vinh Abdullahi on 10-30-2024 Urea nitrogen/Creatinine [Mass ratio] 16.4 mg/mg 10-20 [facility] Basophil percentageOrdered B y: Vinh Abdullahi on 10-30-2024 Basophils/100 WBC (Bld) 0.4 % 0-1 [facility] Bilirubin Test strip Ql (U)O rdered By: Vinh Abdullahi on 10-30-2024 Bilirubin Ql (U) Negative Negative [facility] Bilirubin, totalOrdered By: Vinh Abdullahi on 10-30-2024 Bilirubin [Mass/Vol] 0.21 mg/dL 0.00-1.30 [facility] CBC W/Diff, Automatedon 10-10 Absolute Lymph 2.23 X10 3/uL Normal 0.83-4.51 [facility] Comment on above: Performed By: #### L 500.4100, L400.2010, L500.4050, L100.0100, L501.9985, L506.1001 #### [facility] [address] [place], [address] Absolute Neut 5.8 X10 3/uL Normal 2.0-7.7 [facility] Comment on above: Performed By: #### L 500.4100, L4.2010, L500.4050, L100.0100, L501.9985, L506.1001 #### [facility] [address] [place], [address] Basophils/100 WBC (Bld) 0.4 % Normal 0-1 [facility] Comment on above: Performed By: #### L 500.4100, L400.2010, L500.4050, L100.0100, L501.9985, L506.1001 #### [facility] [address] [place], [address] Eosinophils/100 WBC (Bld) 3.3 % Normal 0-5 [facility] Comment on above: Performed By: #### L 500.4100, L400.2010, L500.4050, L100.0100, L501.9985, L506.1001 #### [facility] [address] [place], [address] Erythrocyte distribution width (RBC) [Ratio] 12.6 % Normal 11.6-14.6 [facility] Comment on above: Performed By: #### L 500.4100, L400, L500.4050, L100.0100, L501.9985, L506.1001 #### [facility] [address] [place], [address] Hematocrit (Bld) [Volume fraction] 40.7 % Normal 37-47 [facility] Comment on above: Performed By: #### L 500.4100, L4, L500.4050, L100.0100, L501.9985, L506.1001 #### [facility] [address] [place], [address] Hemoglobin (Bld) [Mass/Vol] 13.5 g/dL Normal 12.0-15.0 [facility] Comment on above: Performed By: #### L 500.410, L4, L500.4050, L100.0100, L501.9985, L506.1001 #### [facility] [address] [place], [address] IG% 0.200 Normal 0.0-0.9 [facility] Comment on above: Result Comment: IG% - Immature Granulocytes (promyelocytes, myelocytes and metamyelocytes) > 1% indicates that a LEFT SHIFT is Present. Performed By: #### L 500.4100, L4, L500.4050, L100.0100, L501.9985, L506.1001 #### [facility] [address] [place], [address] Lymphocytes/100 WBC (Bld) 24.6 % Normal 19-41 [facility] Comment on above: Performed By: #### L 500.4100, L4, L500.4050, L100.0100, L501.9985, L506.1001 #### [facility] [address] [place], [address] MCH (RBC) [Entitic mass] 31.9 pg Normal 27.0-32.0 [facility] Comment on above: Performed By: #### L 500.4100, L400.2010, L500.4050, L100.0100, L501.9985, L506.1001 #### [facility] [address] [place], [address] MCHC (RBC) [Mass/Vol] 33.2 g/dL Normal 32-36 [facility] Comment on above: Performed By: #### L 500.4100, L4, L500.4050, L100.0100, L501.9985, L506.1001 #### [facility] [address] [place], [address] MCV (RBC) [Entitic vol] 96.2 fL Normal 81-99 [facility] Comment on above: Performed By: #### L 500.4100, L4, L500.4050, L100.0100, L501.9985, L506.1001 #### [facility] [address] [place], [address] Monocytes/100 WBC (Bld) 7.2 % Normal 0-10 [facility] Comment on above: Performed By: #### L 500.4100, L4, L500.4050, L100.0100, L501.9985, L506.1001 #### [facility] [address] [place], [address] Neutrophils/100 WBC (Bld) 64.3 % Normal 47-70 [facility] Comment on above: Performed By: #### L 500.4100, L400.2010, L500.4050, L100.0100, L501.9985, L506.1001 #### [facility] [address] [place], [address] Nucleated RBC (Bld) [#/Vol] 0 10*3/uL Normal 0-5 [facility] Comment on above: Performed By: #### L 500.4100, L400.2010, L500.4050, L100.0100, L501.9985, L506.1001 #### [facility] [address] [place], [address] Platelet mean volume (Bld) [Entitic vol] 10.9 fL Normal 6.2-12.0 [facility] Comment on above: Performed By: #### L 500.4100, L400.2010, L500.4050, L100.0100, L501.9985, L506.1001 #### [facility] [address] [place], [address] Platelets (Bld) [#/Vol] 214 10*3/uL Normal 150-450 [facility] Comment on above: Performed By: #### L 500.4100, L4.2010, L500.4050, L100.0100, L501.9985, L506.1001 #### [facility] [address] [place], [address] RBC (Bld) [#/Vol] 4.23 10*6/uL Normal 4.2-5.4 [facility] Comment on above: Performed By: #### L 500.4100, L4.2010, L500.4050, L100.0100, L501.9985, L506.1001 #### [facility] [address] [place], [address] RDW SD 44.2 fl High 35.1-43.9 [facility] Comment on above: Performed By: #### L 500.4100, L400.2010, L500.4050, L100.0100, L501.9985, L506.1001 #### [facility] [address] [place], [address] WBC (Bld) [#/Vol] 9.1 10*3/uL Normal 4.4-11.0 [facility] Comment on above: Performed By: #### L 500.4100, L400.2010, L500.4050, L100.0100, L501.9985, L506.1001 #### [facility] [address] [place], [address] Calculated very low density lipoprotein (VLDL) cholesterol measurementOrdered By: Vinh Abdullahi on 10-30-2024 Calculated very low density lipoprotein (VLDL) cholesterol measurement 23 mg/dL 5-40 [facility] Carbon dioxide, total [Moles /volume] in Central venous bloodOrdered By: Vinh Abdullahi on 10-30-2024 CO2 [Moles/Vol] 23.1 mmol/L 21.0-32.0 [facility] Chloride assayOrdered By: Janice Abdullahi on 10-30-2024 Chloride [Moles/Vol] 108 mmol/L 98-108 [facility] Comprehensive Metabolic Prof ilon 10-30-2024 Albumin [Mass/Vol] 3.6 g/dL Normal 3.4-4.8 [facility] Comment on above: Performed By: #### L 500.4100, L4.2010, L500.4050, L100.0100, L501.9985, L506.1001 #### [facility] [address] [place], [address] Albumin/Globulin [Mass ratio] 1.1 {ratio} Normal 0.9-2.4 [facility] Comment on above: Performed By: #### L 500.4100, L400.2010, L500.4050, L100.0100, L501.9985, L506.1001 #### [facility] [address] [place], [address] ALK PHOS 95 U/L Normal 35-104 [facility] Comment on above: Performed By: #### L 500.4100, L400.2010, L500.4050, L100.0100, L501.9985, L506.1001 #### [facility] [address] [place], [address] ALT [Catalytic activity/Vol] 23 U/L Normal <=34 [facility] Comment on above: Performed By: #### L 500.4100, L4, L500.4050, L100.0100, L501.9985, L506.1001 #### [facility] [address] [place], [address] AST [Catalytic activity/Vol] 35 U/L High <=31 [facility] Comment on above: Performed By: #### L 500.4100, L4, L500.4050, L100.0100, L501.9985, L506.1001 #### [facility] [address] [place], [address] Bilirubin [Mass/Vol] 0.21 mg/dL Normal 0.00-1.30 [facility] Comment on above: Performed By: #### L 500.4100, L4, L500.4050, L100.0100, L501.9985, L506.1001 #### [facility] [address] [place], [address] BUN/CRE 16.4 RATIO Normal 10-20 [facility] Comment on above: Performed By: #### L 500.4100, L4, L500.4050, L100.0100, L501.9985, L506.1001 #### [facility] [address] [place], [address] Calcium [Mass/Vol] 9.2 mg/dL Normal 7.6-11.0 [facility] Comment on above: Performed By: #### L 500.4100, L4, L500.4050, L100.0100, L501.9985, L506.1001 #### [facility] [address] [place], [address] Chloride [Moles/Vol] 108 mmol/L Normal 98-108 [facility] Comment on above: Performed By: #### L 500.4100, L400.2010, L500.4050, L100.0100, L501.9985, L506.1001 #### [facility] [address] [place], [address] CO2 [Moles/Vol] 23.1 mmol/L Normal 21.0-32.0 [facility] Comment on above: Performed By: #### L 500.4100, L400.2010, L500.4050, L100.0100, L501.9985, L506.1001 #### [facility] [address] [place], [address] Creatinine [Mass/Vol] 0.94 mg/dL Normal 0.70-1.20 [facility] Comment on above: Performed By: #### L 500.4100, L400.2010, L500.4050, L100.0100, L501.9985, L506.1001 #### [facility] [address] [place], [address] GAP 12 Normal 5-15 [facility] Comment on above: Performed By: #### L 500.4100, L400.2010, L500.4050, L100.0100, L501.9985, L506.1001 #### [facility] [address] [place], [address] GFR/1.73 sq M.predicted among non-blacks MDRD (S/P/Bld) [Vol rate/Area] 64 mL/min/{1.73_m2} Normal >60 [facility] Comment on above: Result Comment: mL/m in/1.73m2 CKD-EPI Creatinine Equation (2021) Performed By: #### L 500.4100, L400.2010, L500.4050, L100.0100, L501.9985, L506.1001 #### [facility] [address] [place], [address] Globulin (S) [Mass/Vol] 3.2 g/dL Normal 2.2-4.2 [facility] Comment on above: Performed By: #### L 500.4100, L400.2010, L500.4050, L100.0100, L501.9985, L506.1001 #### [facility] [address] [place], [address] Glucose [Mass/Vol] 110 mg/dL High 70-99 [facility] Comment on above: Performed By: #### L 500.4100, L4.2010, L500.4050, L100.0100, L501.9985, L506.1001 #### [facility] [address] [place], [address] Potassium [Moles/Vol] 4.1 mmol/L Normal 3.3-5.1 [facility] Comment on above: Performed By: #### L 500.4100, L400.2010, L500.4050, L100.0100, L501.9985, L506.1001 #### [facility] [address] [place], [address] Sodium [Moles/Vol] 142 mmol/L Normal 133-145 [facility] Comment on above: Performed By: #### L 500.4100, L400.2010, L500.4050, L100.0100, L501.9985, L506.1001 #### [facility] [address] [place], [address] T PROT 6.7 g/dL Normal 5.9-8.4 [facility] Comment on above: Performed By: #### L 500.4100, L400.2010, L500.4050, L100.0100, L501.9985, L506.1001 #### [facility] [address] [place], [address] Urea nitrogen [Mass/Vol] 15 mg/dL Normal 4-19 [facility] Comment on above: Performed By: #### L 500.4100, L400.2010, L500.4050, L100.0100, L501.9985, L506.1001 #### [facility] [address] [place], [address] Eosinophil percentageOrdered By: Vinh Abdullahi on 10-30-2024 Eosinophils/100 WBC (Bld) 3.3 % 0-5 [facility] Erythrocyte distribution wid th ratioOrdered By: Vinh Abdullahi on 10-30-2024 Erythrocyte distribution width (RBC) [Ratio] 12.6 % 11.6-14.6 [facility] Erythrocyte distribution wid th standard deviationOrdered By: Vinh Abdullahi on 10-30-2024 Erythrocyte distribution width (RBC) [Ratio] 44.2 fl High 35.1-43.9 [facility] Glomerular filtration rate ( GFR) estimation/1.73 sq m using serum, plasma, or whole bOrdered By: Vinh Abdullahi on 10-30-2024 GFR/1.73 sq M.predicted among non-blacks MDRD (S/P/Bld) [Vol rate/Area] 64 mL/min/{1.73_m2} >60 [facility] Comment on above: mL/min/1.73m2 CKD-EP I Creatinine Equation (2020) Hematocrit Auto (Bld) [Volum e fraction]Ordered By: Vinh Abdullahi on 10-30-2024 Hematocrit (Bld) [Volume fraction] 40.7 % 37-47 [facility] Hemoglobin A1con 10-30-2024 HbA1c (Bld) [Mass fraction] 5.7 % Normal <=5.6 [facility] Comment on above: Result Comment: Norm al < 5.7 % Prediabetic 5.7 - 6.4 % Diabetic >or= 6.5 % Please note range changes. Performed By: #### L 500.4100, L400.2010, L500.4050, L100.0100, L501.9985, L506.1001 #### [facility] [address] [place], [address] Hemoglobin A1c percentageOrd ered By: Vinh Abdullahi on 10-30-2024 HbA1c (Bld) [Mass fraction] 5.7 % <5.7 [facility] Comment on above: Normal < 5.7 % Predi abetic 5.7 - 6.4 % Diabetic >or= 6.5 % Please note range changes. Hemoglobin measurementOrdere d By: Vinh Abdullahi on 10-30-2024 Hemoglobin (Bld) [Mass/Vol] 13.5 g/dL 12.0-15.0 [facility] Immature granulocytes/100 WB C Auto (Bld)Ordered By: Vinh Abdullahi on 10-30-2024 Immature granulocytes/100 WBC (Bld) 0.200 % 0.0-0.9 [facility] Comment on above: IG% - Immature Granu locytes (promyelocytes, myelocytes and metamyelocytes) > 1% indicates that a LEFT SHIFT is Present. Ketones Test strip Ql (U)Ord ered By: Vinh Abdullahi on 10-30-2024 Ketones Ql (U) Negative Negative [facility] LDL calc ser/plasOrdered By: Vinh Abdullahi on 10-30-2024 Cholesterol in LDL [Mass/Vol] 96 mg/dL [facility] Comment on above: Qtagowvfxz=358-752 m g/dL & Higher Kmpz=867 mg/dL or greater Laboratory - Chemistry and C hemistry - challengeOrdered By: Vinh Abdullahi on 10-30-2024 AST [Catalytic activity/Vol] 35 U/L High <32 [facility] Lipid Profileon 10-30-2024 CHOL:HDL 3.88 Normal [facility] Comment on above: Performed By: #### L 500.4100, L400.2010, L500.4050, L100.0100, L501.9985, L506.1001 #### [facility] [address] [place], [address] Cholesterol [Mass/Vol] 161 mg/dL Normal <=200 [facility] Comment on above: Result Comment: Chol esterol level, Desirable <200 mg/dL Borderline high cholesterol 200-239 mg/dL High cholesterol >=240 mg/dL Recommendations of the NCEP Adult Treatment Panel for the following risk-cutoff thresholds for the [place] population. Performed By: #### L 500.4100, L400, L500.4050, L100.0100, L501.9985, L506.1001 #### [facility] [address] [place], [address] Cholesterol in HDL [Mass/Vol] 42 mg/dL Normal [facility] Comment on above: Result Comment: Fela onal Cholesterol Education Program (NCEP) guidelines: <40 mg/dL: Low HDL-cholesterol (major risk factor for CHD) >= 60 mg/dL: High HDL-cholesterol (negative risk factor for CHD) HDL-cholesterol is affected by a number of factors, e.g. smoking, exercise, hormones, sex and age. Performed By: #### L 500.4100, L4, L500.4050, L100.0100, L501.9985, L506.1001 #### [facility] [address] [place], [address] Cholesterol in LDL [Mass/Vol] 96 mg/dL Normal [facility] Comment on above: Result Comment: Bord kiphdw=743-964 mg/dL Higher Qypj=877 mg/dL or greater Performed By: #### L 500.4100, L400, L500.4050, L100.0100, L501.9985, L506.1001 #### [facility] [address] [place], [address] Cholesterol in VLDL [Mass/Vol] 23 mg/dL Normal 5-40 [facility] Comment on above: Performed By: #### L 500.4100, L400, L500.4050, L100.0100, L501.9985, L506.1001 #### [facility] [address] [place], [place], [address] Triglyceride [Mass/Vol] 116 mg/dL Normal [facility] Comment on above: Result Comment: The drugs N-Acetylcysteine and Metamizole may falsely depress this assay. Normal range: <150 mg/dL Borderline High: 150-199 mg/dL High: 200-499 mg/dL Very High: >500 mg/dL Performed By: #### L 500.4100, L400.2011, L500.4050, L100.0100, L501.9985, L506.1001 #### [facility] [address] [place], [address] MCV (mean corpuscular volume ) determinationOrdered By: Vinh Abdullahi on 10-30-2024 MCV (RBC) [Entitic vol] 96.2 fL 81-99 [facility] Mean corpuscular hemoglobin (MCH) determinationOrdered By: Vinh Abdullahi on 10-30-2024 MCH (RBC) [Entitic mass] 31.9 pg 27.0-32.0 [facility] Mean corpuscular hemoglobin concentration (MCHC) determinationOrdered By: Vinh Abdullahi on 10-30-2024 MCHC (RBC) [Mass/Vol] 33.2 g/dL 32-36 [facility] Mean platelet volume determi nationOrdered By: Vinh Abdullahi on 10-30-2024 Platelet mean volume (Bld) [Entitic vol] 10.9 fL 6.2-12.0 [facility] Monocyte percentageOrdered B y: Vinh Abdullahi on 10-30-2024 Monocytes/100 WBC (Bld) 7.2 % 0-10 [facility] Neutrophil percentageOrdered By: Vinh Abdullahi on 10-30-2024 Neutrophils/100 WBC (Bld) 64.3 % 47-70 [facility] Nitrite Test strip Ql (U)Ord ered By: Vinh Abdullahi on 10-30-2024 Nitrite Ql (U) Negative Negative [facility] Nucleated red blood cell per centageOrdered By: Vinh Abdullahi on 10-30-2024 Nucleated RBC/100 WBC (Bld) [Ratio] 0 % 0-5 [facility] Platelet countOrdered By: Janice Abdullahi on 10-30-2024 Platelets (Bld) [#/Vol] 214 10*3/uL 150-450 [facility] Potassium measurement (mass/ volume)Ordered By: Vinh Abdullahi on 10-30-2024 Potassium (Unsp spec) [Mass/Vol] 4.1 mmol/L 3.3-5.1 [facility] Protein Test strip Ql (U)Ord ered By: Vinh Abdullahi on 10-30-2024 Protein Ql (U) 30 mg/dl High Negative [facility] RBC Auto (Bld) [#/Vol]Ordere d By: Vinh Abdullahi on 10-30-2024 RBC (Bld) [#/Vol] 4.23 10*6/uL 4.2-5.4 [facility] Screening total cholesterol/ high density lipoprotein (HDL) cholesterol ratioOrdered By: Vinh Abdullahi on 10-30-2024 Cholesterol.total/Choles terol in HDL [Mass ratio] 3.88 {ratio} [facility] Serum creatinine measurement (mass/volume)Ordered By: Vinh Abdullahi on 10-30-2024 Creatinine [Mass/Vol] 0.94 mg/dL 0.70-1.20 [facility] Serum globulin measurementOr dered By: Vinh Abdullahi on 10-30-2024 Globulin (S) [Mass/Vol] 3.2 g/dL 2.2-4.2 [facility] Serum glucose measurement (m ass/volume)Ordered By: Vinh Abdullahi on 10-30-2024 Glucose [Mass/Vol] 110 mg/dL High 70-99 [facility] Serum or plasma alanine reece otransferase (ALT) measurementOrdered By: Vinh Abdullahi on 10-30-2024 ALT [Catalytic activity/Vol] 23 U/L <35 [facility] Serum or plasma albumin nick urement (mass/volume)Ordered By: Vinh Abdullahi on 10-30-2024 Albumin [Mass/Vol] 3.6 g/dL 3.4-4.8 [facility] Serum or plasma albumin/glob ulin mass ratioOrdered By: Vinh Abdullahi on 10-30-2024 Albumin/Globulin [Mass ratio] 1.1 {ratio} 0.9-2.4 [facility] Serum or plasma alkaline jing sphatase measurementOrdered By: Vinh Abdullahi on 10-30-2024 ALP [Catalytic activity/Vol] 95 U/L 35-104 [facility] Serum or plasma calcium nick urement (mass/volume)Ordered By: Vinh Abdullahi on 10-30-2024 Calcium [Mass/Vol] 9.2 mg/dL 7.6-11.0 [facility] Serum or plasma cholesterol in HDL measurement (mass/volume)Ordered By: Vinh Abdullahi on 10-30-2024 Cholesterol in HDL [Mass/Vol] 42 mg/dL >40 [facility] Comment on above: National Cholesterol Education Program (NCEP) guidelines:<40 mg/dL: Low HDL-cholesterol (major risk factor for CHD)>= 60 mg/dL: High HDL-cholesterol (negative risk factor for CHD)HDL-cholesterol is affected by a number of factors, e.g. smoking, exercise, hormones, sex and age. Serum or plasma cholesterol measurement (mass/volume)Ordered By: Vinh Abdullahi on 10-30-2024 Cholesterol [Mass/Vol] 161 mg/dL <201 [facility] Comment on above: Cholesterol level, D esirable <200 mg/dLBorderline high cholesterol 200-239 mg/dLHigh cholesterol >=240 mg/dLRecommendations of the NCEP Adult Treatment Panel for the following risk-cutoff thresholds for the [place] population. Serum or plasma urea nitroge n measurement (mass/volume)Ordered By: Vinh Abdullahi on 10-30-2024 Urea nitrogen [Mass/Vol] 15 mg/dL 4-19 [facility] Sodium levelOrdered By: Vinh Abdullahi on 10-30-2024 Sodium [Moles/Vol] 142 mmol/L 133-145 [facility] Total proteinOrdered By: Tyra Abdullahi on 10-30-2024 Protein [Mass/Vol] 6.7 g/dL 5.9-8.4 [facility] Triglycerides measurementOrd ered By: Vinh Abdullahi on 10-30-2024 Triglyceride [Mass/Vol] 116 mg/dL <199 [facility] Comment on above: The drugs N-Acetylcy steine and Metamizole may falsely depress this assay. Normal range: <150 mg/dLBorderline High: 150-199 mg/dLHigh: 200-499 mg/dLVery High: >500 mg/dL Urinalysis, Routine (Dipstic k)on 10-30-2024 BILIRUBIN URINE Negative Normal Negative [facility] Comment on above: Order Comment: CLEAN CATCH Performed By: #### L 500.4100, L400.2010, L500.4050, L100.0100, L501.9985, L506.1001 #### [facility] [address] [place], [address] Clarity (U) Clear Normal Clear [facility] Comment on above: Order Comment: CLEAN CATCH Performed By: #### L 500.4100, L400.2010, L500.4050, L100.0100, L501.9985, L506.1001 #### [facility] [address] [place], [address] Color (U) Yellow Normal Yellow [facility] Comment on above: Order Comment: CLEAN CATCH Performed By: #### L 500.4100, L4.2010, L500.4050, L100.0100, L501.9985, L506.1001 #### [facility] [address] [place], [address] GLUCOSE, UR Normal Normal Normal [facility] Comment on above: Order Comment: CLEAN CATCH Performed By: #### L 500.4100, L400.2010, L500.4050, L100.0100, L501.9985, L506.1001 #### [facility] [address] [place], [address] KETONE UR Negative Normal Negative [facility] Comment on above: Order Comment: CLEAN CATCH Performed By: #### L 500.4100, L400.2010, L500.4050, L100.0100, L501.9985, L506.1001 #### [facility] [address] [place], [address] LEUK ESTERASE 25 /ul Abnormal Negative [facility] Comment on above: Order Comment: CLEAN CATCH Performed By: #### L 500.4100, L400.2010, L500.4050, L100.0100, L501.9985, L506.1001 #### [facility] [address] [place], [address] Nitrite Ql (U) Negative Normal Negative [facility] Comment on above: Order Comment: CLEAN CATCH Performed By: #### L 500.410, L4.2010, L500.4050, L100.0100, L501.9985, L506.1001 #### [facility] [address] [place], [address] OCCULT BLOOD-UR 25 /ul Abnormal Negative [facility] Comment on above: Order Comment: CLEAN CATCH Performed By: #### L 500.4100, L4, L500.4050, L100.0100, L501.9985, L506.1001 #### [facility] [address] [place], [address] pH UR 6.0 Normal 5.0 - 8.0 [facility] Comment on above: Order Comment: CLEAN CATCH Performed By: #### L 500.4100, L4, L500.4050, L100.0100, L501.9985, L506.1001 #### [facility] [address] [place], [address] PROT DIPSTX 30 mg/dl Abnormal Negative [facility] Comment on above: Order Comment: CLEAN CATCH Performed By: #### L 500.4100, L400.2010, L500.4050, L100.0100, L501.9985, L506.1001 #### [facility] [address] [place], [address] SP.GR. DIPSTX 1.020 Normal 1.002-1.030 [facility] Comment on above: Order Comment: CLEAN CATCH Performed By: #### L 500.4100, L400.2011, L500.4050, L100.0100, L501.9985, L506.1001 #### [facility] [address] [place], [address] UROBILI Normal Normal Normal [facility] Comment on above: Order Comment: CLEAN CATCH Performed By: #### L 500.4100, L400.2010, L500.4050, L100.0100, L501.9985, L506.1001 #### [facility] [address] [place], [address] Urine clarityOrdered By: Tyra Abdullahi on 10-30-2024 Clarity (U) Clear Clear [facility] Urine color determinationOrd ered By: Vinh Abdullahi on 10-30-2024 Color (U) Yellow Yellow [facility] Urine glucose detectionOrder ed By: Vinh Abdullahi on 10-30-2024 Glucose Ql (U) Normal mg/dl Normal [facility] Urine leukocyte esterase det ection by dipstickOrdered By: Vinh Abdullahi on 10-30-2024 Leukocyte esterase Test strip Ql (U) 25 /ul High Negative [facility] Urine pHOrdered By: Vinh clancy on 10-30-2024 pH (U) 6.0 [pH] 5.0 - 8.0 [facility] Urine specific gravity measu rementOrdered By: Vinh Abdullahi on 10-30-2024 Specific gravity (U) [Rel density] 1.020 1.002-1.030 [facility] Urine urobilinogen measureme ntOrdered By: Vinh Abdullahi on 10-30-2024 Urobilinogen Ql (U) Normal mg/dl Normal [facility] Vitamin D,25 Hydroxyon 10-30 Vitamin D 25-OH 29.5 ng/mL Low 30-100 [facility] Comment on above: Result Comment: Katelynn min D Status Deficiency: <20 ng/mL (50nmol/L) Insufficiency: 20-30 ng/mL (50-75 nmol/L) Sufficiency: 30-100 ng/mL (75-250 nmol/L) Toxicity: >100 ng/mL (>250 nmol/L) Performed By: #### L 500.4100, L400.2011, L500.4050, L100.0100, L501.9985, L506.1001 #### [facility] [address] [place], [address] White blood cell (WBC) count Ordered By: Vinh Abdullahi on 10-30-2024 WBC (Bld) [#/Vol] 9.1 10*3/uL 4.4-11.0 [facility] CNOVon 07-18-2024 CNOV Office Visit (ORMDNA) -------- KEYSHA ALBERTS ([id number]) 1950 F Date Time Provider Department 07/18/24 10:45 AM JOSEF SVAAGE During your visit today, we recorded the following information about you: Josef Savage DO 07/18/2024 11:00 AM Signed Follow Up Visit Chief Complaint Keysha Alberts is a 74 year old female who presents today for follow up office visit. Patient presents with: Left Shoulder - Follow Up, Pain, Injections History of Present Illness PAIN EVALUATION 07/18/2024 1041 Pain Level: 6 Pain Location: Shoulder-Left Description: Sore;Aching;Throbb ing;Sharp Duration Amount of Time: 2 Duration Units: Years Frequency: Intermittent Intervention/Comfo rt measure: -- topicals, tramadol, cortisone injection HPI: Keysha Alberts is a 74 year old female for a follow up visit left shoulder pain. Patient has been complaining of pain for some time now. She received a cortisone injection in December 2022 that gave about 4 months of relief. She is here requesting another injection. Pain history is noted as above. Right hand dominate. Is there any overall improvement in your condition? Yes, with cortisone injection Any new injury, since being seen last: No REVIEW OF SYMPTOMS: Patient did not have, and does not currently have, any weight loss, malaise, fever, chills, headache, chest pain, chest pressure, palpitations, cough, shortness of breath, orthopnea, paroxsymal nocturnal dyspnea, nausea, vomiting, diarrhea, constipation, melena, hematochezia, urinary difficulties, prolonged bleeding, easily bruising, heat or cold intolerance, new onset joint pain or swelling, new onset extremity weakness or numbness, new onset auditory or visual disturbances, lightheadedness, dizziness, partial loss of consciousness or full loss of consciousness. Current Outpatient Medications Medication Sig atorvastatin (LIPITOR) 40 mg tablet Take 1 tablet by mouth every afternoon. busPIRone (BUSPAR) 10 mg tablet Take 10 mg by mouth once daily. gabapentin (NEURONTIN) 400 mg capsule Take 400 mg by mouth three times daily. metoprolol tartrate, short acting, (LOPRESSOR) 25 mg tablet Take 1 tablet by mouth every 12 hours 6am/6pm. rOPINIRole (REQUIP) 1 mg tablet Take 5 mg by mouth three times daily. traMADol (ULTRAM) 50 mg tablet Take 2 tablets by mouth as needed for pain. No current facility-administe red medications for this visit. Physical Exam Vitals: There were no vitals taken for this visit. Psych: Pleasant, good affect and mood General Appearance: Well appearing, alert, in no acute distress, well-hydrated, well nourished.. Skin: Skin color, texture, turgor normal, no suspicious rashes or lesions. Peripheral Pulses: Normal. Neurologic: Gait normal. Reflexes normal and symmetric. Sensation grossly intact.. Lymph Nodes: No cervical lymphadenopathy, No supraclavicular lymphadenopathy, No axillary lymphadenopathy., and No inguinal lymphadenopathy.. Respiratory: No recent pulmonary infection, hemoptysis, chronic cough, or shortness of breath at rest Rheumatologic: Joint deformities: left shoulder pain Ortho Exam Assessment and Plan Radiographs: No imaging to review. Impression: Encounter Diagnosis ICD-10-CM 1. Chronic left shoulder pain M25.512 G89.29 2. Primary osteoarthritis of left shoulder M19.012 Today, in detail, through a thorough evaluation, we discussed possible etiologies of pain and our plans for further diagnostic and therapeutic interventions. We discussed strategies for decreasing pain and improving strength, stability and motion. Patient's questions were answered in detailed. Patient verbalizes understanding and agrees with the treatment plan as discussed. Discussed with patient possible options for treatment. Patient elected proceed with injection. Patient told not to submerge the injected area for 24 hours in a hot tub, or bath, injection may take 2 weeks for improvement to be noticed, follow-up in 2 -6 weeks if symptoms do not resolve. All questions answered patient agreement of plan. Apply ice Limit activities as discussed Rest Do not submerge limb in water for 24 hours Cont current meds Watch sugars/decrease carbs Call if warm/hot/red Discussed with patient that if the injection does not work after 2 to 4 weeks to come back for reevaluation. Discussed the next 3 days may feel worse before it feels better. Discussed if having continued pain to return. May get injection every 3 months Large Joint Arthro/Inj: L subacromial bursa Informed Consent Consent Obtained: Verbal [place] Protocol A moment to CARE was completed. SIGN IN Personnel directly involved with the procedure wore the appropriate PPE. Special Equipment: N/A Patient/Surrogate Stated/Verified: Patient name, Date of , Relevant allergies and Intended procedure TIME (more content not included)... Normal [facility] Large Joint Arthro/Inj: L muniz bacromial bursaon 07-18-2024 Josef Savage DO 07/18/2024 11:00 AM Large Joint Arthro/Inj: L subacromial bursa Informed Consent Consent Obtained: Verbal [place] Protocol A moment to CARE was completed. SIGN IN Personnel directly involved with the procedure wore the appropriate PPE. Special Equipment: N/A Patient/Surrogate Stated/Verified: Patient name, Date of , Relevant allergies and Intended procedure TIME OUT Relevant labs, photos, and/or imaging studies have been reviewed. Intended patient and procedure match the source document(s). Consent documented and matches the intended procedure. Correct side/site marked and visible. Medications required for procedure verified. Fire risk assessed and interventions discussed. No implant(s) inserted.07/18/2024 11:00 AM The procedure site was prepped in the usual sterile fashion. Site: L subacromial bursa Medications: 80 mg triamcinolone acetonide 40 mg/mL Anesthetics: 8 mL BUPivacaine (PF) 0.5 % (5 mg/mL) Outcome: Tolerated well, no immediate complications Post-injection instructions were reviewed with the patient and the patient voiced understanding of these instructions. SIGN OUT All specimen containers correctly labeled. All instruments, equipment, possible retained foreign bodies accounted for. Post-procedure follow-up management communicated and Plan of Care Visit completed when applicable [facility] XR SHOULDER GENERAL 3V OR MO RE AP/TRUE AP/OTHER LEFTon 12-21-2022 [facility] Basophil percentageon 2021 Basophil percentage < 0.6 mg/dL 0.55-1.02 [facility] Work Phone: No Panel Informationon 08-12 Bedside Estimated GFR (eGFR) > 60.0000 mL/min >60 [facility] Work Phone: Albumin Elph [Mass/Vol]on Albumin [Mass/Vol] 3.4 g/dL [facility] Work Phone: Basophil percentageon 2021 Basophil percentage Comment [facility] Work Phone: Comment on above: No monoclonality det ected.Performed at: [facility] [place] [id number] Director: Braxton Wright PhD, Phone: [phone] Interpretation of serum or p lasma protein pattern by immunofixation (narrative resulton 07-18-2021 Protein Fractions Immunofixation Rafael [Interp] See comment [facility] Work Phone: Comment on above: Result: Not Observed No Panel Informationon 07-18 Addendum Document Comment [facility] Work Phone: Comment on above: Protein electrophore sis scan will follow via computer,mail, or sports broadcasting internship delivery. Serum [id number] measu rement by electrophoresison 07-18-2021 Alpha 1 globulin Elph [Mass/Vol] 0.3 g/dL [facility] Work Phone: Alpha 1 globulin Elph [Mass/Vol] 0.7 g/dL [facility] Work Phone: Serum globulin measurement ( mass/volume)on 07-18-2021 Globulin (S) [Mass/Vol] 3.0 g/dL [facility] Work Phone: Serum or plasma IgA measurem ent (mass/volume)on 07-18-2021 IgA [Mass/Vol] 167 mg/dL [facility] Work Phone: Serum or plasma IgG measurem ent (mass/volume)on 07-18-2021 IgG [Mass/Vol] 985 mg/dL [facility] Work Phone: Serum or plasma IgM measurem ent (mass/volume)on 07-18-2021 IgM [Mass/Vol] 69 mg/dL [facility] Work Phone: Serum or plasma beta globuli n measurement by electrophoresis (mass/volume)on 07-18-2021 Beta globulin Elph [Mass/Vol] 1.0 g/dL [facility] Work Phone: Serum or plasma gamma globul in measurement by electrophoresis (mass/volume)on 07-18-2021 Gamma globulin Elph [Mass/Vol] 1.0 g/dL [facility] Work Phone: Serum or plasma immunoelectr ophoresis interpretation (nominal result)on 07-18-2021 Interpretation IEP [Interp] Comment [facility] Work Phone: Comment on above: No monoclonality det ected. Thin prep Papanicolaou smear with manual screeningon 07-18-2021 Thin prep Papanicolaou smear with manual screening 1.2 [facility] Work Phone: Total protein bloodon 2021 Protein [Mass/Vol] 6.4 g/dL [facility] Work Phone: Basophil percentageon 2021 Ammonia (P) [Moles/Vol] 13.0 umol/L -32 [facility] Work Phone: Bilirubin [Mass/Vol] 0.30 mg/dL 0.20-1.00 [facility] Work Phone: Comment on above: For patients on eltr ombopag therapy, use of Dimension [place] TBIL is not recommended. Chloride [Moles/Vol] 109 mmol/L 98-107 [facility] Work Phone: Glucose [Mass/Vol] 92 mg/dL 74-106 [facility] Work [facility]: Potassium [Moles/Vol] 4.2 mmol/L 3.5-5.1 [facility] Work Phone: Protein [Mass/Vol] 6.6 g/dL 6.4-8.2 [facility] Work Phone: Sodium [Moles/Vol] 142 mmol/L 136-145 [facility] Work Phone: WBC (Bld) [#/Vol] 7.2 10*3/uL 4.4-11.0 [facility] Work Phone: Blood erythrocytes count (nu mber/volume)on 07-07-2021 RBC (Bld) [#/Vol] 4.22 10*6/uL 4.2-5.4 [facility] Work Phone: Blood hemoglobin measurement (mass/volume)on 07-07-2021 Hemoglobin (Bld) [Mass/Vol] 13.3 g/dL 12.0-15.0 [facility] Work Phone: Blood platelet mean volumeon 07-07-2021 Platelet mean volume (Bld) [Entitic vol] 10.3 fL 6.2-12.0 [facility] Work Phone: Determination of erythrocyte mean corpuscular volume (MCV)on 07-07-2021 MCV (RBC) [Entitic vol] 94.8 fL 81-99 [facility] Work Phone: Hematocrit Auto (Bld) [Volum e fraction]on 07-07-2021 Hematocrit (Bld) [Volume fraction] 40.0 % 37-47 [facility] Work Phone: Laboratory - Chemistry and C hemistry - challengeon 07-07-2021 ALP [Catalytic activity/Vol] 121 U/L 45-117 [facility] Work Phone: ALT [Catalytic activity/Vol] 23 U/L 13-56 [facility] Work Phone: CO2 [Moles/Vol] 26.0 mmol/L 21.0-32.0 [facility] Work Phone: Cobalamin (Vitamin B12) [Mass/Vol] 442 pg/mL 211-911 [facility] Work Phone: Globulin (S) [Mass/Vol] 3.2 g/dL 2.2-4.2 [facility] Work Phone: Urea nitrogen/Creatinine [Mass ratio] 16.0 mg/mg 10-20 [facility] Work Phone: Laboratory - Hematology and Cell countson 07-07-2021 Erythrocyte distribution width (RBC) [Entitic vol] 44.3 fL 35.1-43.9 [facility] Work Phone: Erythrocyte distribution width (RBC) [Ratio] 12.7 % 11.6-14.6 [facility] Work Phone: MCH (RBC) [Entitic mass] 31.5 pg 27.0-32.0 [facility] Work Phone: MCHC Auto (RBC) [Mass/Vol]on 07-07-2021 MCHC (RBC) [Mass/Vol] 33.3 g/dL 32-36 [facility] Work Phone: No Panel Informationon 07-07 Estimated GFR (MDRD) Amer 89 mL/min >60 [facility] Work Phone: Comment on above: GFR Calc Estimated GFR (MDRD) Non-Af Amer 74 mL/min >60 [facility] Work Phone: Comment on above: Non- GFR Calc Free Lambda Light Chains, Quant 12.9 mg/L [facility] Work Phone: Thyroid Stimulating Hormone (TSH) 0.66 uIU/mL 0.358-3.74 [facility] Work Phone: Platelets bldon 07-07-2021 Platelets (Bld) [#/Vol] 287 10*3/uL 150-450 [facility] Work Phone: Serum immunoglobulin kappa l ight chains/immunoglobulin lambda light chains mass ratioon 07-07-2021 Immunoglobulin light chains.kappa/Immunoglobu rock light chains.lambda (S) [Mass ratio] 2.09 [facility] Work Phone: Comment on above: Performed at: [address] [id number] Director: Braxton Wright PhD, Phone: [phone] Serum or plasma albumin nick urement (mass/volume)on 07-07-2021 Albumin [Mass/Vol] 3.4 g/dL 3.2-5.0 [facility] Work Phone: Serum or plasma albumin/glob ulin mass ratioon 07-07-2021 Albumin/Globulin [Mass ratio] 1.1 {ratio} 0.9-2.4 [facility] Work Phone: Serum or plasma calcium nick urement (mass/volume)on 07-07-2021 Calcium [Mass/Vol] 8.9 mg/dL 8.5-10.1 [facility] Work Phone: Serum or plasma creatinine m easurement (mass/volume)on 07-07-2021 Creatinine [Mass/Vol] 0.81 mg/dL 0.55-1.02 [facility] Work Phone: Comment on above: The validity of the calculated GFR & GFRAA in patients over 70 years has not been determined. Clinical correlation is essential. Serum or plasma folate measu rement (mass/volume)on 07-07-2021 Folate [Mass/Vol] 32.50 ng/mL 3.1-55.4 [facility] Work Phone: Serum or plasma immunoglobul in kappa light chains measurement (mass/volume)on 07-07-2021 Immunoglobulin light chains.kappa [Mass/Vol] 26.9 mg/L [facility] Work Phone: Serum or plasma urea nitroge n measurement (mass/volume)on 07-07-2021 Urea nitrogen [Mass/Vol] 13 mg/dL 7-18 [facility] Work Phone: Thin prep Papanicolaou smear with manual screeningon 07-07-2021 Thin prep Papanicolaou smear with manual screening 25 U/L 15-37 [facility] Work Phone: Thin prep Papanicolaou smear with manual screening 7 5-15 [facility] Work Phone: Office Visiton 12-22-2016 Protein mass conc Done [facility] Work Phone: Tobacco smoking status [facility] Never smoker [facility] Work Phone: Office Visiton 12-04-2011 Documentation of current medications (procedure) Done Invalid Interpretation Code [facility] Work Phone: Protein mass conc Done [facility] Work Phone: Office Visiton 11-09-2011 Tobacco smoking status [facility] never smoker [facility] Work Phone: Tobacco use [facility] never smoker Invalid Interpretation Code [facility] Work Phone: Large Joint Arthro/Inj: L muniz bacromial bursa [facility] Vital Signs Date Time Vital Sign Value Performing Clinician Facility 06-29-2022 14:38-0500 Body height 158.[address] Vinh Abdullahi Work Phone: [facility] 06-29-2022 14:38-0500 Body mass index (BMI) [Ratio] 20.4 kg/m2 Dr. Vinh Abdullahi Work Phone: [facility] 06-29-2022 14:38-0500 Body temperature 98.6 [degF] Dr. Vinh Abdullahi Work Phone: [facility] 06-29-2022 14:38-0500 Body weight 51.[address] Vinh Abdullahi Work Phone: [facility] 06-29-2022 14:38-0500 Diastolic blood pressure 80 mm[Hg] Dr. Vinh Abdullahi Work Phone: [facility] 06-29-2022 14:38-0500 Heart rate 77 /min Dr. Vinh Abdullahi Work Phone: [facility] 06-29-2022 14:38-0500 Respiratory rate 16 /min Dr. Vinh Abdullahi Work Phone: [facility] 06-29-2022 14:38-0500 SaO2% (BldA) [Mass fraction] 98 % Dr. Vinh Abdullahi Work Phone: [facility] 06-29-2022 14:38-0500 Systolic blood pressure 140 mm[Hg] Dr. Vinh Abdullahi Work Phone: [facility] 07-07-2021 07:03-0500 Body height 158.[address] Vinh Abdullahi Work Phone: [facility] Work Phone: 07-07-2021 07:03-0500 Body mass index (BMI) [Ratio] 19.6 kg/m2 Dr. Vinh Abdullahi Work Phone: [facility] Work Phone: 07-07-2021 07:03-0500 Body weight 49.[address] Vinh Abdullahi Work Phone: [facility] Work Phone: 07-07-2021 07:03-0500 Diastolic blood pressure 88 mm[Hg] Dr. Vinh Abdullahi Work Phone: [facility] Work Phone: 07-07-2021 07:03-0500 Heart rate 77 /min Dr. Vinh Abdullahi Work Phone: [facility] Work Phone: 07-07-2021 07:03-0500 SaO2% (BldA) [Mass fraction] 98 % Dr. Vinh Abdullahi Work Phone: [facility] Work Phone: 07-07-2021 07:03-0500 Systolic blood pressure 132 mm[Hg] Dr. Vinh Abdullahi Work Phone: [facility] Work Phone: 12-04-2011 11:04-0400 BP Diastolic 110 mm[Hg] [facility] Work Phone: 12-04-2011 11:04-0400 BP Systolic 160 mm[Hg] [facility] Work Phone: 12-04-2011 11:04-0400 Pulse (Heart Rate) 74 /min [facility] Work Phone: 12-04-2011 11:04-0400 Weight 58.97 kg [facility] Work Phone: 10-26-2011 10:53-0400 Height 160.02 cm [facility] Work Phone: Encounters Encounter Date Encounter Type Care Provider Facility Start: 12-02-2024 ambulatory Vinh Abdullahi Facility: [facility] Start: 10-30-2024 End: 10-30-[address] Vinh Abdullahi DO Work Phone: [facility] Work Phone: Start: 10-30-2024 End: 10-30-[address] Vinh Abdullahi DO -Laboratory [place] Work Phone: Start: 10-30-2024 End: 10-30-2024 ambulatory Vinh Abdullahi Facility:[facility] Start: 07-18-2024 End: 07-18-2024 ambulatory JOSEF SAVAGE Facility:[facility] Start: 07-18-2024 End: 07-18-2024 Patient encounter procedure Josef Savage DO Work Phone: Orthopaedics Comment on above: Chronic left shoulde r pain (Primary Dx); Primary osteoarthritis of left shoulder Start: 10-15-2023 End: 10-15-2023 ambulatory [facility] Work Phone: Start: 10-15-2023 End: 10-15-2023 Patient encounter procedure [facility]-Radiology, [place] Work Phone: Start: 05-30-2023 End: 05-30-2023 ambulatory [facility] Work Phone: Start: 05-30-2023 End: 05-30-2023 [facility]: Start: 12-21-2022 End: 12-21-2022 Patient encounter procedure LisaGeraldine Savage DO Work Phone: Orthopaedics Comment on above: Chronic left shoulde r pain (Primary Dx); Primary osteoarthritis of left shoulder Start: 12-21-2022 End: 12-21-2022 Subsequent hospital visit by physician [facility] Work Phone: Radiology Comment on above: Left shoulder pain, unspecified chronicity [M25.512] Start: 07-27-2022 End: 07-27-[address] Vinh Abdullahi Work Phone: [facility] Work Phone: Start: 07-27-2022 End: 07-27-[address] Vinh Abdullahi Work Phone: [facility], [facility] Start: 06-29-2022 End: 06-29-[address] Vinh Abdullahi Work Phone: [facility] Neurology Start: 08-31-2021 End: 08-31-[address] Vinh Abdullahi Work Phone: [facility]-Pulmonary Services/Neurology Start: 08-12-2021 Non-patient / Non-visit Dr. Janice Abdullahi Work Phone: [facility] Start: 08-12-2021 End: 08-12-[address] Vinh Abdullahi Work Phone: [facility] Start: 07-18-2021 End: 07-18-[address] Vinh Abdullahi Work Phone: [facility] Start: 07-07-2021 End: 07-07-[address] [facility] Procedures Date Procedure Procedure Detail Performing Clinician Start: 10-30-2024 Urnls dip stick/tabl et reagent auto microscopy Dr. Vinh Abdullahi DO Work Phone: Start: 10-30-2024 Vitamin D, 25-hydrox y measurement Dr. Vinh Abdullahi DO Work Phone: Comment on above: Vitamin D StatusDefi ciency: <20 ng/mL (50nmol/L)Insufficiency: 20-30 ng/mL (50-75 nmol/L)Sufficiency: 30-100 ng/mL (75-250 nmol/L)Toxicity: >100 ng/mL (>250 nmol/L) Start: 07-18-2024 Arthrocentesis aspir &/inj major jt/bursa w/o us Josef Savage DO Work Phone: Start: 10-15-2023 Diagnostic radiograp hy of abdomen Start: 10-15-2023 X-ray of lumbosacral spine Start: 05-30-2023 CT of abdomen and pe lvis without contrast Start: 12-21-2022 Arthrocentesis aspir &/inj major jt/bursa w/o us Josef Chandler Hussein DO Work Phone: Start: 12-21-2022 Radex shoulder compl ete minimum 2 views Lisajorden Savage DO Work Phone: Start: 07-27-[address] Vinh sanchez Work Phone: Start: 08-12-2021 MRI of brain with contrast Dr. Vinh Abdullahi Work Phone: Plan of Treatment Date Care Activity Detail Author Start: 2026 RSV Vaccine (1 - 1-dose 75+ series) RSV Vaccine (1 - 1-dose 75+ series) [facility] Start: 07-25-2025 Screening for malignant neoplasm of colon [facility] Start: 06-11-2024 Advance Directive Discussion Advance Directive Discussion [facility] Start: 02-10-2024 Covid-19 Vaccine ( season) Covid-19 Vaccine ( season) [facility] Start: 02-10-2024 Influenza vaccination [facility] Start: 08-26-2023 Urine microalbumin profile DTaP,Tdap,Td Vaccine (2 - Td or Tdap) [facility] Start: 02-09-2023 Covid-19 Vaccine ( season) Covid-19 Vaccine ( season) [facility] Start: 02-09-2023 Influenza vaccination [facility] Start: 06-11-2022 ADVANCE DIRECTIVE DISCUSSION ADVANCE DIRECTIVE DISCUSSION [facility] Start: 06-11-2022 DEPRESSION ASSESSMENT DEPRESSION ASSESSMENT [facility] Start: 07-21-2021 COVID-19 VACCINE (2 - Booster for Ellie series) COVID-19 VACCINE (2 - Booster for Ellie series) [facility] Start: 12-27-2016 End: 12-27-2016 Occupational Therapy General Occupational Therapy [facility], [address] [place] [address], [id number] [facility] Work Phone: Start: 12-22-2016 End: 12-22-2016 Appointment Appointment [facility] Work Phone: Start: 12-22-2016 End: 12-22-2016 Radex shoulder complete minimum 2 views X-Ray, Shoulder [facility] Work Phone: Start: 2016 BONE DENSITY BONE DENSITY [facility] Start: 2016 Bone Density Screening Bone Density Screening [facility] Start: 2016 Pneumococcal Vaccine: 65+ (1 - PCV) Pneumococcal Vaccine: 65+ (1 - PCV) [facility] Start: 2016 PNEUMOCOCCAL: 65+ (1 - PCV) PNEUMOCOCCAL: 65+ (1 - PCV) [facility] Start: 2016 Screening for osteoporosis Bone Density Screening [facility] Start: 12-08-2002 DIABETES SCREEN DIABETES SCREEN [facility] Start: 12-08-2002 Diabetes Screening Diabetes Screening [facility] Start: 2001 Pneumococcal Vaccine: 50+ (1 of 1 - PCV) Pneumococcal Vaccine: 50+ (1 of 1 - PCV) [facility] Start: 2001 SHINGRIX VACCINE (1 of 2) SHINGRIX VACCINE (1 of 2) [facility] Start: 1996 COLOGUARD (FIT-DNA) COLOGUARD (FIT-DNA) [facility] Start: 1996 Colonoscopy COLONOSCOPY [facility] Start: 1996 COLORECTAL CANCER SCREENING COLORECTAL CANCER SCREENING [facility] Start: [address] COLONOGRAPHY [facility] Start: 1996 FECAL OCCULT BLOOD FECAL OCCULT BLOOD [facility] Start: 1996 Lipid 1996 panel - Serum or Plasma Lipid Screening [facility] Start: 1996 Lipid panel Lipid Screening [facility] Start: 1996 LIPID SCREEN LIPID SCREEN [facility] Start: 1996 Screening for malignant neoplasm of colon [facility] Start: 1996 SIGMOIDOSCOPY SIGMOIDOSCOPY [facility] Start: 1991 Mammography [facility] Start: 1991 Screening for malignant neoplasm of breast Mammogram Screening [facility] Start: 1970 Urine microalbumin profile [facility] Start: 1969 Anxiety Screening Anxiety Screening [facility] Start: 1969 Depression Screening Depression Screening [facility] Start: 1969 HEPATITIS C SCREENING HEPATITIS C SCREENING [facility] Start: 1969 Hepatitis C screening Hepatitis C Screening [facility] Immunizations Immunization Date Immunization Notes Care Provider Lucia palencia 08-25-2013 tetanus and diphther ia toxoids, adsorbed, preservative free, for adult use (2 Lf of tetanus toxoid and 2 Lf of diphtheria toxoid) Dr. Vinh Abdullahi Work Phone: [facility] Payers Date Payer Category Payer Self-pay [id number] 2023 Medicare HUMANA MEDICARE HU[employer]NA GOLD PLUS [id number] 2023-Present [phone] [address] [address] [place] [address] HMO [id number] 2023 Private Health Insurance [id number] 2021 Unknown [employer]UE CARD PPO OOS [id number] 2021-Present [phone] [address] [place] [address] PPO [id number] Unknown [id number] Unknown [id number] Unknown [id number] Social History Date Type Detail Facility Start: 07-07-2021 End: 10-30-2022 Tobacco smoking status NHIS Unknown if ever smoked [facility] Start: 04-18-2018 Cigarettes [facility] Start: 1950 Sex Assigned At Female [facility] Start: 12-21-2022 [facility] History of tobacco use Current smoker [facility] History of tobacco use Cigarette Smoker [facility] Start: 12-21-2022 Tobacco use and exposure Smokeless tobacco non-user [facility] Start: 12-21-2022 End: 07-18-2024 Alcohol intake Ex-drinker (finding) [facility] Start: 12-21-2022 End: 07-18-2024 History of Social function [facility] Start: 12-21-2022 End: 07-18-2024 Tobacco use panel [facility] National Score (1-100), lower number is lower risk 47 [facility] Start: 1950 Sex Assigned At Not on file [facility] Start: 10-30-2022 [facility] Clinical Notes 12-21-2022 to 07-18-2024 Josef Savage DO - 07/18/2024 10:40 AM Josef Rich DO - 12/21/2022 10:05 AM Nica Acosta RT(R) - 12/21/2022 9:30 AM EDT Note Date & Type Note Facility 07-18-2024 Note HNO ID: [id number] Author: JOSEF SAVAGE DO Service: ? Author Type: Physician Type: Progress Notes Filed: 07/18/2024 11:00 Note Text: Follow Up Visit Chief Complaint Keysha Alberts is a 74 year old female who presents today for follow up office visit. Patient presents with: Left Shoulder - Follow Up, Pain, Injections History of Present Illness PAIN EVALUATION 07/18/2024 1041 Pain Level: 6 Pain Location: Shoulder-Left Description: Sore;Aching;Throbbing;Sharp Duration Amount of Time: 2 Duration Units: Years Frequency: Intermittent Intervention/Comfort measure: -- topicals, tramadol, cortisone injection HPI: Keysha Alberts is a 74 year old female for a follow up visit left shoulder pain. Patient has been complaining of pain for some time now. She received a cortisone injection in December 2022 that gave about 4 months of relief. She is here requesting another injection. Pain history is noted as above. Right hand dominate. Is there any overall improvement in your condition? Yes, with cortisone injection Any new injury, since being seen last: No REVIEW OF SYMPTOMS: Patient did not have, and does not currently have, any weight loss, malaise, fever, chills, headache, chest pain, chest pressure, palpitations, cough, shortness of breath, orthopnea, paroxsymal nocturnal dyspnea, nausea, vomiting, diarrhea, constipation, melena, hematochezia, urinary difficulties, prolonged bleeding, easily bruising, heat or cold intolerance, new onset joint pain or swelling, new onset extremity weakness or numbness, new onset auditory or visual disturbances, lightheadedness, dizziness, partial loss of consciousness or full loss of consciousness. Current Outpatient Medications Medication Sig atorvastatin (LIPITOR) 40 mg tablet Take 1 tablet by mouth every afternoon. busPIRone (BUSPAR) 10 mg tablet Take 10 mg by mouth once daily. gabapentin (NEURONTIN) 400 mg capsule Take 400 mg by mouth three times daily. metoprolol tartrate, short acting, (LOPRESSOR) 25 mg tablet Take 1 tablet by mouth every 12 hours 6am/6pm. rOPINIRole (REQUIP) 1 mg tablet Take 5 mg by mouth three times daily. traMADol (ULTRAM) 50 mg tablet Take 2 tablets by mouth as needed for pain. No current facility-administered medications for this visit. Physical Exam Vitals: There were no vitals taken for this visit. Psych: Pleasant, good affect and mood General Appearance: Well appearing, alert, in no acute distress, well-hydrated, well nourished.. Skin: Skin color, texture, turgor normal, no suspicious rashes or lesions. Peripheral Pulses: Normal. Neurologic: Gait normal. Reflexes normal and symmetric. Sensation grossly intact.. Lymph Nodes: No cervical lymphadenopathy, No supraclavicular lymphadenopathy, No axillary lymphadenopathy., and No inguinal lymphadenopathy.. Respiratory: No recent pulmonary infection, hemoptysis, chronic cough, or shortness of breath at rest Rheumatologic: Joint deformities: left shoulder pain Ortho Exam Assessment and Plan Radiographs: No imaging to review. Impression: Encounter Diagnosis ICD-10-CM 1. Chronic left shoulder pain M25.512 G89.29 2. Primary osteoarthritis of left shoulder M19.012 Today, in detail, through a thorough evaluation, we discussed possible etiologies of pain and our plans for further diagnostic and therapeutic interventions. We discussed strategies for decreasing pain and improving strength, stability and motion. Patient's questions were answered in detailed. Patient verbalizes understanding and agrees with the treatment plan as discussed. Discussed with patient possible options for treatment. Patient elected proceed with injection. Patient told not to submerge the injected area for 24 hours in a hot tub, or bath, injection may take 2 weeks for improvement to be noticed, follow-up in 2 -6 weeks if symptoms do not resolve. All questions answered patient agreement of plan. Apply ice Limit activities as discussed Rest Do not submerge limb in water for 24 hours Cont current meds Watch sugars/decrease carbs Call if warm/hot/red Discussed with patient that if the injection does not work after 2 to 4 weeks to come back for reevaluation. Discussed the next 3 days may feel worse before it feels better. Discussed if having continued pain to return. May get injection every 3 months Large Joint Arthro/Inj: L subacromial bursa Informed Consent Consent Obtained: Verbal [place] Protocol A moment to CARE was completed. SIGN IN Personnel directly involved with the procedure wore the appropriate PPE. Special Equipment: N/A Patient/Surrogate Stated/Verified: Patient name, Date of , Relevant allergies and Intended procedure TIME OUT Relevant labs, photos, and/or imaging studies have been reviewed. Intended patient and procedure match the source document(s). Consent documented and matches the intended procedure. Correct si (more content not included)... [facility] 07-18-2024 History of Present illness Narrative Associated Order(s): Large Joint Arthro/Inj: L subacromial bursa Post-Procedure Diagnose(s): Chronic left shoulder pain; Primary osteoarthritis of left shoulder Images from the original note were not included. Follow Up Visit Chief Complaint Keysha Alberts is a 74 year old female who presents today for follow up office visit. Patient presents with: Left Shoulder - Follow Up, Pain, Injections History of Present Illness PAIN EVALUATION 07/18/2024 1041 Pain Level: 6 Pain Location: Shoulder-Left Description: Sore;Aching;Throbbing;Sharp Duration Amount of Time: 2 Duration Units: Years Frequency: Intermittent Intervention/Comfort measure: -- topicals, tramadol, cortisone injection HPI: Keysha Alberts is a 74 year old female for a follow up visit left shoulder pain. Patient has been complaining of pain for some time now. She received a cortisone injection in December 2022 that gave about 4 months of relief. She is here requesting another injection. Pain history is noted as above. Right hand dominate. Is there any overall improvement in your condition? Yes, with cortisone injection Any new injury, since being seen last: No REVIEW OF SYMPTOMS: Patient did not have, and does not currently have, any weight loss, malaise, fever, chills, headache, chest pain, chest pressure, palpitations, cough, shortness of breath, orthopnea, paroxsymal nocturnal dyspnea, nausea, vomiting, diarrhea, constipation, melena, hematochezia, urinary difficulties, prolonged bleeding, easily bruising, heat or cold intolerance, new onset joint pain or swelling, new onset extremity weakness or numbness, new onset auditory or visual disturbances, lightheadedness, dizziness, partial loss of consciousness or full loss of consciousness. Current Outpatient Medications Medication Sig atorvastatin (LIPITOR) 40 mg tablet Take 1 tablet by mouth every afternoon. busPIRone (BUSPAR) 10 mg tablet Take 10 mg by mouth once daily. gabapentin (NEURONTIN) 400 mg capsule Take 400 mg by mouth three times daily. metoprolol tartrate, short acting, (LOPRESSOR) 25 mg tablet Take 1 tablet by mouth every 12 hours 6am/6pm. rOPINIRole (REQUIP) 1 mg tablet Take 5 mg by mouth three times daily. traMADol (ULTRAM) 50 mg tablet Take 2 tablets by mouth as needed for pain. No current facility-administered medications for this visit. Physical Exam Vitals: There were no vitals taken for this visit. Psych: Pleasant, good affect and mood General Appearance: Well appearing, alert, in no acute distress, well-hydrated, well nourished.. Skin: Skin color, texture, turgor normal, no suspicious rashes or lesions. Peripheral Pulses: Normal. Neurologic: Gait normal. Reflexes normal and symmetric. Sensation grossly intact.. Lymph Nodes: No cervical lymphadenopathy, No supraclavicular lymphadenopathy, No axillary lymphadenopathy., and No inguinal lymphadenopathy.. Respiratory: No recent pulmonary infection, hemoptysis, chronic cough, or shortness of breath at rest Rheumatologic: Joint deformities: left shoulder pain Ortho Exam Assessment and Plan Radiographs: No imaging to review. Impression: Encounter Diagnosis ICD-10-CM 1. Chronic left shoulder pain M25.512 G89.29 2. Primary osteoarthritis of left shoulder M19.012 Today, in detail, through a thorough evaluation, we discussed possible etiologies of pain and our plans for further diagnostic and therapeutic interventions. We discussed strategies for decreasing pain and improving strength, stability and motion. Patient's questions were answered in detailed. Patient verbalizes understanding and agrees with the treatment plan as discussed. Discussed with patient possible options for treatment. Patient elected proceed with injection. Patient told not to submerge the injected area for 24 hours in a hot tub, or bath, injection may take 2 weeks for improvement to be noticed, follow-up in 2 -6 weeks if symptoms do not resolve. All questions answered patient agreement of plan. Apply ice Limit activities as discussed Rest Do not submerge limb in water for 24 hours Cont current meds Watch sugars/decrease carbs Call if warm/hot/red Discussed with patient that if the injection does not work after 2 to 4 weeks to come back for reevaluation. Discussed the next 3 days may feel worse before it feels better. Discussed if having continued pain to return. May get injection every 3 months Large Joint Arthro/Inj: L subacromial bursa Informed Consent Consent Obtained: Verbal [place] Protocol A moment to CARE was completed. SIGN IN Personnel directly involved with the procedure wore the appropriate PPE. Special Equipment: N/A Patient/Surrogate Stated/Verified: Patient name, Date of , Relevant allergies and Intended procedure TIME OUT Relevant labs, photos, and/or imaging studies have been reviewed. Intended patient and procedure match the source document(s). Consent documented and matches the intended procedure. Correct side/site marked and visible. Medications required for procedure verified. Fire risk assessed and interventions discussed. No implant(s) inserted.07/18/2024 11:00 AM The procedure site was prepped in the usual sterile fashion. Site: L subacromial bursa Medications: 80 mg triamcinolone acetonide 40 mg/mL Anesthetics: 8 mL BUPivacaine (PF) 0.5 % (5 mg/mL) Outcome: Tolerated well, no immediate complications Post-injection instructions were reviewed with the patient and the patient voiced understanding of these instructions. SIGN OUT All specimen containers correctly labeled. All instruments, equipment, possible retained foreign bodies accounted for. Post-procedure follow-up management communicated and Plan of Care Visit completed when applicable Josef OlveraP.HJarod documented in this encounter [facility] 12-21-2022 History of Present illness Narrative Associated Order(s): Large Joint Arthro/Inj: L subacromial bursa Post-Procedure Diagnose(s): Chronic left shoulder pain; Primary osteoarthritis of left shoulder Images from the original note were not included. Reason for Visit/Chief Complaint Keysha Alberts is a 72 year old female who presents today for a new evaluation of following complaint: Patient presents with: Left Shoulder - New: No injury. She is post collarbone repair in 2018. History of Present Illness: PAIN EVALUATION 12/21/2022 1007 Pain Level: 2 Pain Location: Shoulder-Left Description: Throbbing;Radiating with movement Duration Amount of Time: 2 Duration Units: Years Frequency: Intermittent Intervention/Comfort measure: Medication HPI: Keysha Alberts is a 72 year old female presenting today with left shoulder pain. Pain history is noted as above. Patient reports increased pain with movement that radiates into her neck. She has had PT and an injection previously. Last injection helped for about 4 months. Previous Treatments: Ice: No Heat: No Brace: No NSAIDs: Yes, not currently Injections: Yes, about 9 months ago Surgeries: Yes, collar bone repair Physical Therapy: Yes Review of Systems: Patient did not have, and does not currently have, any weight loss, malaise, fever, chills, headache, chest pain, chest pressure, palpitations, cough, shortness of breath, orthopnea, paroxsymal nocturnal dyspnea, nausea, vomiting, diarrhea, constipation, melena, hematochezia, urinary difficulties, prolonged bleeding, easily bruising, heat or cold intolerance, new onset joint pain or swelling, new onset extremity weakness or numbness, new onset auditory or visual disturbances, lightheadedness, dizziness, partial loss of consciousness or full loss of consciousness. Current Outpatient Medications on File Prior to Visit Medication Sig atorvastatin (LIPITOR) 40 mg tablet Take 1 tablet by mouth every afternoon. busPIRone (BUSPAR) 10 mg tablet Take 10 mg by mouth once daily. gabapentin (NEURONTIN) 400 mg capsule Take 400 mg by mouth three times daily. metoprolol tartrate, short acting, (LOPRESSOR) 25 mg tablet Take 1 tablet by mouth every 12 hours 6am/6pm. rOPINIRole (REQUIP) 1 mg tablet Take 5 mg by mouth three times daily. traMADol (ULTRAM) 50 mg tablet Take 2 tablets by mouth as needed for pain. No current facility-administered medications on file prior to visit. ALLERGIES No Known Allergies Physical Exam: Vitals: There were no vitals taken for this visit. Psych: Pleasant, good affect and mood General Appearance: Well appearing, alert, in no acute distress, well-hydrated, well nourished.. Skin: Skin color, texture, turgor normal, no suspicious rashes or lesions. Peripheral Pulses: Normal. Neurologic: Gait normal. Reflexes normal and symmetric. Sensation grossly intact.. Lymph Nodes: No cervical lymphadenopathy, No supraclavicular lymphadenopathy, No axillary lymphadenopathy., and No inguinal lymphadenopathy.. Respiratory: No recent pulmonary infection, hemoptysis, chronic cough, or shortness of breath at rest Rheumatologic: Joint deformities: left shoulder pain Right Shoulder Exam Right shoulder exam is normal. Tenderness The patient is experiencing no tenderness. Range of Motion Active abduction: normal Passive abduction: normal Extension: normal External rotation: normal Forward flexion: normal Internal rotation 0 degrees: normal Internal rotation 90 degrees: normal Muscle Strength Abduction: 5/5 Internal rotation: 5/5 External rotation: 5/5 Supraspinatus: 5/5 Subscapularis: 5/5 Biceps: 5/5 Tests Apprehension: negative Arriaga test: negative Cross arm: negative Impingement: negative Other Erythema: absent Sensation: normal Pulse: present Comments: B/l med, uln, rad, ax nerves intact Left Shoulder Exam Tenderness The patient is experiencing tenderness in the biceps tendon. Range of Motion Active abduction: abnormal Passive abduction: abnormal Extension: abnormal External rotation: abnormal Forward flexion: abnormal Internal rotation 0 degrees: abnormal Internal rotation 90 degrees: abnormal Muscle Strength Abduction: 5/5 Internal rotation: 5/5 External rotation: 4/5 Supraspinatus: 4/5 Subscapularis: 5/5 Biceps: 5/5 Tests Apprehension: negative Arriaga test: positive Cross arm: negative Impingement: positive Other Erythema: absent Sensation: normal Pulse: present Imaging: Last XR Shoulder - Impression Only XR SHOULDER GENERAL 3V OR MORE AP/TRUE AP/OTHER LEFT Exam End: 12/21/2022 9:46 AM (In process) Gh oa, ac oa, well healed clavicle s/p hardware removal Large Joint Arthro/Inj: L subacromial bursa Informed Consent Consent Obtained: Verbal [place] Protocol A moment to CARE was completed. SIGN IN Personnel directly involved with the procedure wore the appropriate PPE. Special Equipment: N/A Patient/Surrogate Stated/Verified: Patient name, Date of , Relevant allergies and Intended procedure TIME OUT Intended patient and procedure match the source document(s). Consent documented and matches the intended procedure. Relevant labs, photos, and/or imaging studies have been reviewed. Correct side/site marked and visible. Medications required for procedure verified. Fire risk assessed and interventions discussed. No implant(s) inserted. 12/21/2022 3:19 PM The procedure site was prepped in the usual sterile fashion. Site: L subacromial bursa Medications: 80 mg triamcinolone acetonide 40 mg/mL Anesthetics: 8 mL BUPivacaine (PF) 0.5 % (5 mg/mL) Outcome: Tolerated well, no immediate complications Post-injection instructions were reviewed with the patient and the patient voiced understanding of these instructions. SIGN OUT All instruments, equipment, possible retained foreign bodies accounted for. Assessment and Plan: Impression: Encounter Diagnosis ICD-10-CM 1. Chronic left shoulder pain M25.512 G89.29 2. Primary osteoarthritis of left shoulder M19.012 Plan: May return in 6 weeks fo gh injeciton if subacormial injection not beneficial Today, in detail, through a thorough evaluation, we discussed possible etiologies of pain and our plans for further diagnostic and therapeutic interventions. We discussed strategies for decreasing pain and improving strength, stability and motion. Patient's questions were answered in detailed. Patient verbalizes understanding and agrees with the treatment plan as discussed. Discussed with patient possible options for treatment. Patient elected proceed with injection. Patient told not to submerge the injected area for 24 hours in a hot tub, or bath, injection may take 2 weeks for improvement to be noticed, follow-up in 2 -6 weeks if symptoms do not resolve. All questions answered patient agreement of plan. Apply ice Limit activities as discussed Rest Do not submerge limb in water for 24 hours Cont current meds Watch sugars/decrease carbs Call if warm/hot/red Discussed with patient that if the injection does not work after 2 to 4 weeks to come back for reevaluation. Discussed the next 3 days may feel worse before it feels better. Discussed if having continued pain to return. May get injection every 3 months Josef Savage D.O. M.P.HJarod documented in this encounter [facility] 12-21-2022 History of Present illness Narrative Radiology Service Progress Note PATIENT NAME: Keysha Alberts DATE OF SERVICE: December 21, 2022 TIME: 9:36 AM PATIENT IDENTITY VERIFICATION COMPLETED USING TWO (2) IDENTIFIERS: Name and Date of confirmed by patient verbally. FALL SCREENING: Has the patient had 2 falls in the last year or 1 fall with injury or currently using an Ambulatory Assistive Device (Walker, Cane, Wheelchair, Crutches, etc.)? No PATIENT GENDER DATA: Female. status: : No status: NO. PATIENT RELEVANT IMPLANT DATA REVIEWED: Yes RADIOLOGY DEPARTMENT: General X-ray: Exam(s) Completed: Upper Extremity X-Ray(s): Shoulder, AP / TRUE AP / AXILLARY left PERIPHERAL IV DATA: Not applicable SIGNED BY: RT Jer(R) December 21, 2022 9:36 AM documented in this encounter [facility] Evaluation note Diagnosis Onset Date Extrapyramidal and movement disorder, unspecified acute Parkinson's disease acute Polyneuropathy acute Right carotid bruit acute [facility] Work Phone: Evaluation note* Diagnosis Onset Date Resolution Status Extrapyramidal and movement disorder, unspecified chronic Polyneuropathy chronic Restless legs syndrome chron ic Right carotid bruit chronic Anxiety resolved [facility] Work Phone: Evaluation note* Diagnosis Chronic left shoulder pain- Primary Pain in joint, shoulder region Primary osteoarthritis of left shoulder Primary localized osteoarthrosis, shoulder region [facility] Diagnosis Left shoulder pain, unspecified chronicity documented in this encounter [facility] noteNo assessment information availableWTriHealth [facility] Work Phone: Evaluation note* Diagnosis Chronic left shoulder pain- Primary Pain in joint, shoulder region Primary osteoarthritis of left shoulder Primary localized osteoarthrosis, shoulder region documented in this encounter [facility] for referral (narrative)* Diagnostic Procedure Only (Routine) - Closed Specialty Diagnoses / Procedures Referred By Contac t Referred To Contact XR IMAGING Diagnoses Left shoulder pain, unspecified chronicity Procedures XR SHOULDER GENERAL 3V OR MORE AP/TRUE AP/OTHER LEFT RADEX SHOULDER COMPLETE MINIMUM [place] [address] [place] [address] [address] [place] [address] [place] [address] Referral ID Status Reason Start Date Expiration Date V isits Requested Visits Authorized [id number] Closed Auto-Generate d Referral 12/07/2022 01/06/2024 1 1 [facility] for referral (narrative)No reason for referral information availableWTriHealth [facility] Work Phone: Reason for visit Narrative* Diagnostic Procedure Only (Routine) - Closed Specialty Diagnoses / Procedures Referred By Contac t Referred To Contact XR IMAGING Diagnoses Left shoulder pain, unspecified chronicity Procedures XR SHOULDER GENERAL 3V OR MORE AP/TRUE AP/OTHER LEFT RADEX SHOULDER COMPLETE MINIMUM 2 VIEWS Josef Savage DO [address] [place] [address] [place] [address] Referral ID Status Reason Start Date Expiration Date V isits Requested Visits Authorized [id number] Closed Auto-Generate d Referral 12/07/2022 01/06/2024 1 1 [facility] Chief Complaint and Reason for Visit Chief Complaint SPEECH PROBLEMS/RIGH T SIDE JERK EORDER EORDER PARKINSONS BILAT LOWER POLYNEUROPATHY Reason for Visit Extrapyramidal and m ovement disorder, unspecified Parkinson's disease Polyneuropathy Right carotid bruit Chief Complaint 4 M FU CURRENT SMOKER, >30 PK YRS Reason for Visit Extrapyramidal and m ovement disorder, unspecified Polyneuropathy Restless legs syndrome Right carotid bruit Anxiety Chief Complaint HEMATURIA Advance Directives No Advanced Directives Records Found Advance Directive Response Recorded Date/ Time Advance Directives No May 4:28pm Living Will No April 18 10:14am Power of Devulcanizer Loader No April 18, 2018 10:14am Advance Directive Response Recorded Date/ Time Advance Directives No May 3:28pm Living Will No April 18 9:14am Power of Devulcanizer Loader No April 18, 2018 9:14am Advance Directive Response Recorded Date/ Time Advance Directives No May 4:28pm Medications Administered Section Inactive Administered Medications - up to 3 most recent administrations Medication Order MAR Action Action Date Dose Rate Site BUPivacaine (PF) 0.5 % (5 mg/mL) 8 mL injection 8 mL, Injection - FOR ORTHO USE ONLY, ONE TIME INJECTION, 1 dose, Starting on Shani 12/21/22 at 1519, Until Shani 12/21/22 at 1519 Given 12/21/2022 3:19 PM EDT 8 mL Shoul elias, Left triamcinolone acetonide 80 mg injection (KeNALog 40) 80 mg, Injection - FOR ORTHO USE ONLY, ONE TIME INJECTION, 1 dose, Starting on Shani 12/21/22 at 1519, Until Shani 12/21/22 at 1519 Given 12/21/2022 3:19 PM EDT 80 mg Shoul elias, Left Summary Purpose Family History No Family History Records Found Additional Source Comments Goals (unrecognized section and content) Goals may be documented in a n alternate sectionGoals may be documented in an alternate sectionGoals may be documented in an alternate sectionGoals may be documented in an alternate sectionGoals may be documented in an alternate section Care Teams (unrecognized sec tion and content) Team Status: Active Member Role Status Dates Dr. Vinh Abdullahi , DO Family Provider Active Dr. Vinh Abdullahi , DO Primary Care Provider Active Team Status: Inactive Member Role Status Dates Dr. Vinh Abdullahi , Primary Care Provider, Aldo silveira Provider Active Dr. Jey Manuel MD Attending Provider Active Team Status: Inactive Member Role Status Dates Dr. Vinh Abdullahi DO Primary Care Prov ider, Attending Provider, Referring Provider Active Team Status: Active Member Role Status Dates Dr. Vinh Abdullahi DO Primary Care Provider Active Team Status: Inactive Member Role Status Dates Dr. Vinh Abdullahi DO Primary Care Provider Active Start: October 30, 2024 End: October 30, 2024 Dr. Vinh Abdullahi DO Attending Provider Active Start: October 30, 2024 End: October 30, 2024 Dr. Vinh Abdullahi DO Referring Provider Active Start: October 30, 2024 End: October 30, 2024 Source Comments (unrecognize d section and content) In the event this informatio n is protected by the Federal Confidentiality of Alcohol and Drug Abuse Patient Records regulations: The Federal rules restrict any use of the information to criminally investigate or prosecute any alcohol or drug abuse patient.[facility] the event this information is protected by the Federal Confidentiality of Alcohol and Drug Abuse Patient Records regulations: The Federal rules restrict any use of the information to criminally investigate or prosecute any alcohol or drug abuse patient.[facility] Hospital[facility] the event this information is protected by the Federal Confidentiality of Alcohol and Drug Abuse Patient Records regulations: The Federal rules restrict any use of the information to criminally investigate or prosecute any alcohol or drug abuse patient.[facility] Reason for Visit (unrecogniz ed section and content) Reason Comments New No injury. She is po st collarbone repair in 2018. Reason Comments Follow Up Pain Injections INFORMATION SOURCE (unrecogn ized section and content) DATE CREATED AUTHOR 07/20/2024 [facility] DATE CREATED AUTHOR AUTHOR'S ORGANIZ ATION 11/28/2024 [facility] FOR RECORDS PERTAINING TO PATIENTS WHO ARE OR HAVE BEEN ENROLLED IN A CHEMICAL DEPENDENCY/SUBSTANCEABUSE PROGRAM, SOME INFORMATION MAY BE OMITTED. This clinical summary was aggregated from multiple sources. Caution should be exercised in using it in the provision of clinical care. This summary normalizes information from multiple sources, and as a consequence, information in this document may materially change the coding, format and clinical context of patient data. In addition, data may be omitted in some cases. CLINICAL DECISIONS SHOULD BE BASED ON THE PRIMARY CLINICAL RECORDS. [employer] provides no warranty or guarantee of the accuracy or completeness of information in this document.
--- OUTSIDE RECORDS SUMMARY | 2024-12-24 20:29 | XMS RPT_ITS | CCD ---
Author Organization [facility] Care Team Providers Care Laboratory Tech Name Role Phone Eden Nunez N Unavailable Eden Nunez N Unavailable Beatrice Nunezica N Unavailable NunezBeatriceEden N Unavailable Dr. Vinh Abdullahi Primary Care Provider [phone] Dr. Vinh Abdullahi Referring Provider [phone] Jey Manuel Attending Provider Dr. Gary Farah Attending Provider Dr. Jey Manuel Referring Provider Dr. Vinh Abdullahi Primary Care Provider [phone] Vinh Abdullahi Referring Provider Dr. Jey Manuel Attending Provider Unavailable Primary Care Provider Unavailabl e Unavailable Primary Care Provider Unavailshoaib e JOSEF SAVAGE Referring Unavailab JOSEF Taylor Attending Unavailab Dr. Vinh Feliz DO [...] by xavi th every 12 hours 6am/6pm. Ld-Eev-Qwfid-Calciu m Carb-K1 (Women's 50 Plus Multivitamin) 400 mcg-500 mg calcium-20 mcg tablet (5 sources) Start: 07-07-2021 take 1 tablet by mouth once daily Mq-Hxd-Ypkec-Calci um Carb-K1 (Women's 50 Plus Multivitamin) 400 mcg-500 mg calcium-20 mcg tablet Active 1 TABLET PO DAILY July 07, 2021 9:25am Start: 07-07-2021 Jp-Ykc-Jlzhj-C alcium Carb-K1 (Women's 50 Plus Multivitamin) 400 mcg-500 mg calcium-20 mcg tablet Active 1 {tbl} PO DAILY July 07, 2021 1:00am Start: 07-07-2021 take 1 tablet by xavi th once daily Tq-Irn-Ttgpr-Calcium Carb-K1 (Women's 50 Plus Multivitamin) 400 mcg-500 mg calcium-20 mcg tablet Active 1 TABLET PO DAILY July 07, 2021 1:00am Start: 07-07-2021 take 1 tablet by xavi th once daily Ho-Dvu-Ltsic-Calcium Carb-K1 (Women's 50 Plus Multivitamin) 400 mcg-500 [...] 12-04-2011 End: 12-22-2016 ULTRAM ER 100 MG [id number] t yunior as directed TRAMADOL HCL [id number] Josef Savage Start: 12-04-2011 ULTRAM ER 100 MG [id number] take as directed TRAMADOL HCL [id number] Josef Savage Start: 12-04-2011 ULTRAM ER 100 MG [id number] take as directed TRAMADOL HCL [id number] Josef Savage Comment on above: Take 2 [...] S One tablet by mouth daily HYDROCODONE-ACETAMINOPHEN [id number] Josef Savage 30 ml bupivacaine hydrochloride 5 [...] TABS One tablet by mouth daily RISPERIDONE [id number] Josef Savage simvastatin 80 mg oral tablet (4 sources) HMG-CoA Reductase Inhibitor Start: 10-26-2011 take 1 tablet by mouth once daily SIMVASTATIN 80 MG TABS One tablet by mouth daily SIMVASTATIN [id number] Josef Savage 1 ml triamcinolone acetonide 40 [...] disease (1 source) Atherosclerotic heart disease of [place] coronary artery without angina pectoris; Translations: [Atherosclerotic heart disease of [place] coronary artery without angina pectoris] Onset: 11-04-2024 [...] Auto (Unsp spec) [#/Vol] 2.23 10*3/uL 0.83-4.51 [facility] Absolute neutrophil countOrd ered By: Vinh Abdullahi on 10-30-2024 Neutrophils (Bld) [#/Vol] 5.8 10*3/uL 2.0-7.7 [facility] Anion gap in Serum or Plasma Ordered By: Vinh Abdullahi on 10-30-2024 Anion gap [Moles/Vol] 12 mmol/L 5-15 [facility] Automated lymphocyte count a s percentage of total leukocytesOrdered By: Vinh Abdullahi on 10-30-2024 Lymphocytes/100 WBC Auto (Unsp spec) 24.6 % -41 [facility] BUN/creatinine ratioOrdered By: Vinh Abdullahi on 10-30-2024 Urea nitrogen/Creatinine [Mass ratio] 16.4 mg/mg 10-20 [facility] Basophil percentageOrdered B y: Vinh Abdullahi on 10-30-2024 Basophils/100 WBC (Bld) 0.4 % 0-1 [facility] Bilirubin Test strip Ql (U)O rdered By: Vinh Abdullahi on 10-30-2024 Bilirubin Ql (U) Negative Negative [facility] Bilirubin, totalOrdered By: Vinh Abdullahi on 10-30-2024 Bilirubin [Mass/Vol] 0.21 mg/dL 0.00-1.30 [facility] CBC W/Diff, Automatedon 10-10 Absolute Lymph 2.23 X10 3/uL Normal 0.83-4.51 [facility] Comment on above: Performed By: #### L 500.4100, L400.2010, L500.4050, L100.0100, L501.9985, L506.1001 #### [facility] [address] [place], [address] Absolute Neut 5.8 X10 3/uL Normal 2.0-7.7 [facility] Comment on above: Performed By: #### L 500.4100, L4.2010, L500.4050, L100.0100, L501.9985, L506.1001 #### [facility] [address] [place], [address] Basophils/100 WBC (Bld) 0.4 % Normal 0-1 [facility] Comment on above: Performed By: #### L 500.4100, L400.2010, L500.4050, L100.0100, L501.9985, L506.1001 #### [facility] [address] [place], [address] Eosinophils/100 WBC (Bld) 3.3 % Normal 0-5 [facility] Comment on above: Performed By: #### L 500.4100, L400.2010, L500.4050, L100.0100, L501.9985, L506.1001 #### [facility] [address] [place], [address] Erythrocyte distribution width (RBC) [Ratio] 12.6 % Normal 11.6-14.6 [facility] Comment on above: Performed By: #### L 500.4100, L400, L500.4050, L100.0100, L501.9985, L506.1001 #### [facility] [address] [place], [address] Hematocrit (Bld) [Volume fraction] 40.7 % Normal 37-47 [facility] Comment on above: Performed By: #### L 500.4100, L4, L500.4050, L100.0100, L501.9985, L506.1001 #### [facility] [address] [place], [address] Hemoglobin (Bld) [Mass/Vol] 13.5 g/dL Normal 12.0-15.0 [facility] Comment on above: Performed By: #### L 500.410, L4, L500.4050, L100.0100, L501.9985, L506.1001 #### [facility] [address] [place], [address] IG% 0.200 Normal 0.0-0.9 [facility] Comment on above: Result Comment: IG% - Immature Granulocytes (promyelocytes, myelocytes and metamyelocytes) > 1% indicates that a LEFT SHIFT is Present. Performed By: #### L 500.4100, L4, L500.4050, L100.0100, L501.9985, L506.1001 #### [facility] [address] [place], [address] Lymphocytes/100 WBC (Bld) 24.6 % Normal 19-41 [facility] Comment on above: Performed By: #### L 500.4100, L4, L500.4050, L100.0100, L501.9985, L506.1001 #### [facility] [address] [place], [address] MCH (RBC) [Entitic mass] 31.9 pg Normal 27.0-32.0 [facility] Comment on above: Performed By: #### L 500.4100, L400.2010, L500.4050, L100.0100, L501.9985, L506.1001 #### [facility] [address] [place], [address] MCHC (RBC) [Mass/Vol] 33.2 g/dL Normal 32-36 [facility] Comment on above: Performed By: #### L 500.4100, L4, L500.4050, L100.0100, L501.9985, L506.1001 #### [facility] [address] [place], [address] MCV (RBC) [Entitic vol] 96.2 fL Normal 81-99 [facility] Comment on above: Performed By: #### L 500.4100, L4, L500.4050, L100.0100, L501.9985, L506.1001 #### [facility] [address] [place], [address] Monocytes/100 WBC (Bld) 7.2 % Normal 0-10 [facility] Comment on above: Performed By: #### L 500.4100, L4, L500.4050, L100.0100, L501.9985, L506.1001 #### [facility] [address] [place], [address] Neutrophils/100 WBC (Bld) 64.3 % Normal 47-70 [facility] Comment on above: Performed By: #### L 500.4100, L400.2010, L500.4050, L100.0100, L501.9985, L506.1001 #### [facility] [address] [place], [address] Nucleated RBC (Bld) [#/Vol] 0 10*3/uL Normal 0-5 [facility] Comment on above: Performed By: #### L 500.4100, L400.2010, L500.4050, L100.0100, L501.9985, L506.1001 #### [facility] [address] [place], [address] Platelet mean volume (Bld) [Entitic vol] 10.9 fL Normal 6.2-12.0 [facility] Comment on above: Performed By: #### L 500.4100, L400.2010, L500.4050, L100.0100, L501.9985, L506.1001 #### [facility] [address] [place], [address] Platelets (Bld) [#/Vol] 214 10*3/uL Normal 150-450 [facility] Comment on above: Performed By: #### L 500.4100, L4.2010, L500.4050, L100.0100, L501.9985, L506.1001 #### [facility] [address] [place], [address] RBC (Bld) [#/Vol] 4.23 10*6/uL Normal 4.2-5.4 [facility] Comment on above: Performed By: #### L 500.4100, L4.2010, L500.4050, L100.0100, L501.9985, L506.1001 #### [facility] [address] [place], [address] RDW SD 44.2 fl High 35.1-43.9 [facility] Comment on above: Performed By: #### L 500.4100, L400.2010, L500.4050, L100.0100, L501.9985, L506.1001 #### [facility] [address] [place], [address] WBC (Bld) [#/Vol] 9.1 10*3/uL Normal 4.4-11.0 [facility] Comment on above: Performed By: #### L 500.4100, L400.2010, L500.4050, L100.0100, L501.9985, L506.1001 #### [facility] [address] [place], [address] Calculated very low density lipoprotein (VLDL) cholesterol measurementOrdered By: Vinh Abdullahi on 10-30-2024 Calculated very low density lipoprotein (VLDL) cholesterol measurement 23 mg/dL 5-40 [facility] Carbon dioxide, total [Moles /volume] in Central venous bloodOrdered By: Vinh Abdullahi on 10-30-2024 CO2 [Moles/Vol] 23.1 mmol/L 21.0-32.0 [facility] Chloride assayOrdered By: Janice Abdullahi on 10-30-2024 Chloride [Moles/Vol] 108 mmol/L 98-108 [facility] Comprehensive Metabolic Prof ilon 10-30-2024 Albumin [Mass/Vol] 3.6 g/dL Normal 3.4-4.8 [facility] Comment on above: Performed By: #### L 500.4100, L4.2010, L500.4050, L100.0100, L501.9985, L506.1001 #### [facility] [address] [place], [address] Albumin/Globulin [Mass ratio] 1.1 {ratio} Normal 0.9-2.4 [facility] Comment on above: Performed By: #### L 500.4100, L400.2010, L500.4050, L100.0100, L501.9985, L506.1001 #### [facility] [address] [place], [address] ALK PHOS 95 U/L Normal 35-104 [facility] Comment on above: Performed By: #### L 500.4100, L400.2010, L500.4050, L100.0100, L501.9985, L506.1001 #### [facility] [address] [place], [address] ALT [Catalytic activity/Vol] 23 U/L Normal <=34 [facility] Comment on above: Performed By: #### L 500.4100, L4, L500.4050, L100.0100, L501.9985, L506.1001 #### [facility] [address] [place], [address] AST [Catalytic activity/Vol] 35 U/L High <=31 [facility] Comment on above: Performed By: #### L 500.4100, L4, L500.4050, L100.0100, L501.9985, L506.1001 #### [facility] [address] [place], [address] Bilirubin [Mass/Vol] 0.21 mg/dL Normal 0.00-1.30 [facility] Comment on above: Performed By: #### L 500.4100, L4, L500.4050, L100.0100, L501.9985, L506.1001 #### [facility] [address] [place], [address] BUN/CRE 16.4 RATIO Normal 10-20 [facility] Comment on above: Performed By: #### L 500.4100, L4, L500.4050, L100.0100, L501.9985, L506.1001 #### [facility] [address] [place], [address] Calcium [Mass/Vol] 9.2 mg/dL Normal 7.6-11.0 [facility] Comment on above: Performed By: #### L 500.4100, L4, L500.4050, L100.0100, L501.9985, L506.1001 #### [facility] [address] [place], [address] Chloride [Moles/Vol] 108 mmol/L Normal 98-108 [facility] Comment on above: Performed By: #### L 500.4100, L400.2010, L500.4050, L100.0100, L501.9985, L506.1001 #### [facility] [address] [place], [address] CO2 [Moles/Vol] 23.1 mmol/L Normal 21.0-32.0 [facility] Comment on above: Performed By: #### L 500.4100, L400.2010, L500.4050, L100.0100, L501.9985, L506.1001 #### [facility] [address] [place], [address] Creatinine [Mass/Vol] 0.94 mg/dL Normal 0.70-1.20 [facility] Comment on above: Performed By: #### L 500.4100, L400.2010, L500.4050, L100.0100, L501.9985, L506.1001 #### [facility] [address] [place], [address] GAP 12 Normal 5-15 [facility] Comment on above: Performed By: #### L 500.4100, L400.2010, L500.4050, L100.0100, L501.9985, L506.1001 #### [facility] [address] [place], [address] GFR/1.73 sq M.predicted among non-blacks MDRD (S/P/Bld) [Vol rate/Area] 64 mL/min/{1.73_m2} Normal >60 [facility] Comment on above: Result Comment: mL/m in/1.73m2 CKD-EPI Creatinine Equation (2021) Performed By: #### L 500.4100, L400.2010, L500.4050, L100.0100, L501.9985, L506.1001 #### [facility] [address] [place], [address] Globulin (S) [Mass/Vol] 3.2 g/dL Normal 2.2-4.2 [facility] Comment on above: Performed By: #### L 500.4100, L400.2010, L500.4050, L100.0100, L501.9985, L506.1001 #### [facility] [address] [place], [address] Glucose [Mass/Vol] 110 mg/dL High 70-99 [facility] Comment on above: Performed By: #### L 500.4100, L4.2010, L500.4050, L100.0100, L501.9985, L506.1001 #### [facility] [address] [place], [address] Potassium [Moles/Vol] 4.1 mmol/L Normal 3.3-5.1 [facility] Comment on above: Performed By: #### L 500.4100, L400.2010, L500.4050, L100.0100, L501.9985, L506.1001 #### [facility] [address] [place], [address] Sodium [Moles/Vol] 142 mmol/L Normal 133-145 [facility] Comment on above: Performed By: #### L 500.4100, L400.2010, L500.4050, L100.0100, L501.9985, L506.1001 #### [facility] [address] [place], [address] T PROT 6.7 g/dL Normal 5.9-8.4 [facility] Comment on above: Performed By: #### L 500.4100, L400.2010, L500.4050, L100.0100, L501.9985, L506.1001 #### [facility] [address] [place], [address] Urea nitrogen [Mass/Vol] 15 mg/dL Normal 4-19 [facility] Comment on above: Performed By: #### L 500.4100, L400.2010, L500.4050, L100.0100, L501.9985, L506.1001 #### [facility] [address] [place], [address] Eosinophil percentageOrdered By: Vinh Abdullahi on 10-30-2024 Eosinophils/100 WBC (Bld) 3.3 % 0-5 [facility] Erythrocyte distribution wid th ratioOrdered By: Vinh Abdullahi on 10-30-2024 Erythrocyte distribution width (RBC) [Ratio] 12.6 % 11.6-14.6 [facility] Erythrocyte distribution wid th standard deviationOrdered By: Vinh Abdullahi on 10-30-2024 Erythrocyte distribution width (RBC) [Ratio] 44.2 fl High 35.1-43.9 [facility] Glomerular filtration rate ( GFR) estimation/1.73 sq m using serum, plasma, or whole bOrdered By: Vinh Abdullahi on 10-30-2024 GFR/1.73 sq M.predicted among non-blacks MDRD (S/P/Bld) [Vol rate/Area] 64 mL/min/{1.73_m2} >60 [facility] Comment on above: mL/min/1.73m2 CKD-EP I Creatinine Equation (2020) Hematocrit Auto (Bld) [Volum e fraction]Ordered By: Vinh Abdullahi on 10-30-2024 Hematocrit (Bld) [Volume fraction] 40.7 % 37-47 [facility] Hemoglobin A1con 10-30-2024 HbA1c (Bld) [Mass fraction] 5.7 % Normal <=5.6 [facility] Comment on above: Result Comment: Norm al < 5.7 % Prediabetic 5.7 - 6.4 % Diabetic >or= 6.5 % Please note range changes. Performed By: #### L 500.4100, L400.2010, L500.4050, L100.0100, L501.9985, L506.1001 #### [facility] [address] [place], [address] Hemoglobin A1c percentageOrd ered By: Vinh Abdullahi on 10-30-2024 HbA1c (Bld) [Mass fraction] 5.7 % <5.7 [facility] Comment on above: Normal < 5.7 % Predi abetic 5.7 - 6.4 % Diabetic >or= 6.5 % Please note range changes. Hemoglobin measurementOrdere d By: Vinh Abdullahi on 10-30-2024 Hemoglobin (Bld) [Mass/Vol] 13.5 g/dL 12.0-15.0 [facility] Immature granulocytes/100 WB C Auto (Bld)Ordered By: Vinh Abdullahi on 10-30-2024 Immature granulocytes/100 WBC (Bld) 0.200 % 0.0-0.9 [facility] Comment on above: IG% - Immature Granu locytes (promyelocytes, myelocytes and metamyelocytes) > 1% indicates that a LEFT SHIFT is Present. Ketones Test strip Ql (U)Ord ered By: Vinh Abdullahi on 10-30-2024 Ketones Ql (U) Negative Negative [facility] LDL calc ser/plasOrdered By: Vinh Abdullahi on 10-30-2024 Cholesterol in LDL [Mass/Vol] 96 mg/dL [facility] Comment on above: Hdhgwitdcj=916-890 m g/dL & Higher Ukmu=794 mg/dL or greater Laboratory - Chemistry and C hemistry - challengeOrdered By: Vinh Abdullahi on 10-30-2024 AST [Catalytic activity/Vol] 35 U/L High <32 [facility] Lipid Profileon 10-30-2024 CHOL:HDL 3.88 Normal [facility] Comment on above: Performed By: #### L 500.4100, L400.2010, L500.4050, L100.0100, L501.9985, L506.1001 #### [facility] [address] [place], [address] Cholesterol [Mass/Vol] 161 mg/dL Normal <=200 [facility] Comment on above: Result Comment: Chol esterol level, Desirable <200 mg/dL Borderline high cholesterol 200-239 mg/dL High cholesterol >=240 mg/dL Recommendations of the NCEP Adult Treatment Panel for the following risk-cutoff thresholds for the [place] population. Performed By: #### L 500.4100, L400, L500.4050, L100.0100, L501.9985, L506.1001 #### [facility] [address] [place], [address] Cholesterol in HDL [Mass/Vol] 42 mg/dL Normal [facility] Comment on above: Result Comment: Fela onal Cholesterol Education Program (NCEP) guidelines: <40 mg/dL: Low HDL-cholesterol (major risk factor for CHD) >= 60 mg/dL: High HDL-cholesterol (negative risk factor for CHD) HDL-cholesterol is affected by a number of factors, e.g. smoking, exercise, hormones, sex and age. Performed By: #### L 500.4100, L4, L500.4050, L100.0100, L501.9985, L506.1001 #### [facility] [address] [place], [address] Cholesterol in LDL [Mass/Vol] 96 mg/dL Normal [facility] Comment on above: Result Comment: Bord jgkmnr=523-657 mg/dL Higher Qoih=239 mg/dL or greater Performed By: #### L 500.4100, L400, L500.4050, L100.0100, L501.9985, L506.1001 #### [facility] [address] [place], [address] Cholesterol in VLDL [Mass/Vol] 23 mg/dL Normal 5-40 [facility] Comment on above: Performed By: #### L 500.4100, L400, L500.4050, L100.0100, L501.9985, L506.1001 #### [facility] [address] [place], [place], [address] Triglyceride [Mass/Vol] 116 mg/dL Normal [facility] Comment on above: Result Comment: The drugs N-Acetylcysteine and Metamizole may falsely depress this assay. Normal range: <150 mg/dL Borderline High: 150-199 mg/dL High: 200-499 mg/dL Very High: >500 mg/dL Performed By: #### L 500.4100, L400.2011, L500.4050, L100.0100, L501.9985, L506.1001 #### [facility] [address] [place], [address] MCV (mean corpuscular volume ) determinationOrdered By: Vinh Abdullahi on 10-30-2024 MCV (RBC) [Entitic vol] 96.2 fL 81-99 [facility] Mean corpuscular hemoglobin (MCH) determinationOrdered By: Vinh Abdullahi on 10-30-2024 MCH (RBC) [Entitic mass] 31.9 pg 27.0-32.0 [facility] Mean corpuscular hemoglobin concentration (MCHC) determinationOrdered By: Vinh Abdullahi on 10-30-2024 MCHC (RBC) [Mass/Vol] 33.2 g/dL 32-36 [facility] Mean platelet volume determi nationOrdered By: Vinh Abdullahi on 10-30-2024 Platelet mean volume (Bld) [Entitic vol] 10.9 fL 6.2-12.0 [facility] Monocyte percentageOrdered B y: Vinh Abdullahi on 10-30-2024 Monocytes/100 WBC (Bld) 7.2 % 0-10 [facility] Neutrophil percentageOrdered By: Vinh Abdullahi on 10-30-2024 Neutrophils/100 WBC (Bld) 64.3 % 47-70 [facility] Nitrite Test strip Ql (U)Ord ered By: Vinh Abdullahi on 10-30-2024 Nitrite Ql (U) Negative Negative [facility] Nucleated red blood cell per centageOrdered By: Vinh Abdullahi on 10-30-2024 Nucleated RBC/100 WBC (Bld) [Ratio] 0 % 0-5 [facility] Platelet countOrdered By: Janice Abdullahi on 10-30-2024 Platelets (Bld) [#/Vol] 214 10*3/uL 150-450 [facility] Potassium measurement (mass/ volume)Ordered By: Vinh Abdullahi on 10-30-2024 Potassium (Unsp spec) [Mass/Vol] 4.1 mmol/L 3.3-5.1 [facility] Protein Test strip Ql (U)Ord ered By: Vinh Abdullahi on 10-30-2024 Protein Ql (U) 30 mg/dl High Negative [facility] RBC Auto (Bld) [#/Vol]Ordere d By: Vinh Abdullahi on 10-30-2024 RBC (Bld) [#/Vol] 4.23 10*6/uL 4.2-5.4 [facility] Screening total cholesterol/ high density lipoprotein (HDL) cholesterol ratioOrdered By: Vinh Abdullahi on 10-30-2024 Cholesterol.total/Choles terol in HDL [Mass ratio] 3.88 {ratio} [facility] Serum creatinine measurement (mass/volume)Ordered By: Vinh Abdullahi on 10-30-2024 Creatinine [Mass/Vol] 0.94 mg/dL 0.70-1.20 [facility] Serum globulin measurementOr dered By: Vinh Abdullahi on 10-30-2024 Globulin (S) [Mass/Vol] 3.2 g/dL 2.2-4.2 [facility] Serum glucose measurement (m ass/volume)Ordered By: Vinh Abdullahi on 10-30-2024 Glucose [Mass/Vol] 110 mg/dL High 70-99 [facility] Serum or plasma alanine reece otransferase (ALT) measurementOrdered By: Vinh Abdullahi on 10-30-2024 ALT [Catalytic activity/Vol] 23 U/L <35 [facility] Serum or plasma albumin nick urement (mass/volume)Ordered By: Vinh Abdullahi on 10-30-2024 Albumin [Mass/Vol] 3.6 g/dL 3.4-4.8 [facility] Serum or plasma albumin/glob ulin mass ratioOrdered By: Vinh Abdullahi on 10-30-2024 Albumin/Globulin [Mass ratio] 1.1 {ratio} 0.9-2.4 [facility] Serum or plasma alkaline jing sphatase measurementOrdered By: Vinh Abdullahi on 10-30-2024 ALP [Catalytic activity/Vol] 95 U/L 35-104 [facility] Serum or plasma calcium nick urement (mass/volume)Ordered By: Vinh Abdullahi on 10-30-2024 Calcium [Mass/Vol] 9.2 mg/dL 7.6-11.0 [facility] Serum or plasma cholesterol in HDL measurement (mass/volume)Ordered By: Vinh Abdullahi on 10-30-2024 Cholesterol in HDL [Mass/Vol] 42 mg/dL >40 [facility] Comment on above: National Cholesterol Education Program (NCEP) guidelines:<40 mg/dL: Low HDL-cholesterol (major risk factor for CHD)>= 60 mg/dL: High HDL-cholesterol (negative risk factor for CHD)HDL-cholesterol is affected by a number of factors, e.g. smoking, exercise, hormones, sex and age. Serum or plasma cholesterol measurement (mass/volume)Ordered By: Vinh Abdullahi on 10-30-2024 Cholesterol [Mass/Vol] 161 mg/dL <201 [facility] Comment on above: Cholesterol level, D esirable <200 mg/dLBorderline high cholesterol 200-239 mg/dLHigh cholesterol >=240 mg/dLRecommendations of the NCEP Adult Treatment Panel for the following risk-cutoff thresholds for the [place] population. Serum or plasma urea nitroge n measurement (mass/volume)Ordered By: Vinh Abdullahi on 10-30-2024 Urea nitrogen [Mass/Vol] 15 mg/dL 4-19 [facility] Sodium levelOrdered By: Vinh Abdullahi on 10-30-2024 Sodium [Moles/Vol] 142 mmol/L 133-145 [facility] Total proteinOrdered By: Tyra Abdullahi on 10-30-2024 Protein [Mass/Vol] 6.7 g/dL 5.9-8.4 [facility] Triglycerides measurementOrd ered By: Vinh Abdullahi on 10-30-2024 Triglyceride [Mass/Vol] 116 mg/dL <199 [facility] Comment on above: The drugs N-Acetylcy steine and Metamizole may falsely depress this assay. Normal range: <150 mg/dLBorderline High: 150-199 mg/dLHigh: 200-499 mg/dLVery High: >500 mg/dL Urinalysis, Routine (Dipstic k)on 10-30-2024 BILIRUBIN URINE Negative Normal Negative [facility] Comment on above: Order Comment: CLEAN CATCH Performed By: #### L 500.4100, L400.2010, L500.4050, L100.0100, L501.9985, L506.1001 #### [facility] [address] [place], [address] Clarity (U) Clear Normal Clear [facility] Comment on above: Order Comment: CLEAN CATCH Performed By: #### L 500.4100, L400.2010, L500.4050, L100.0100, L501.9985, L506.1001 #### [facility] [address] [place], [address] Color (U) Yellow Normal Yellow [facility] Comment on above: Order Comment: CLEAN CATCH Performed By: #### L 500.4100, L4.2010, L500.4050, L100.0100, L501.9985, L506.1001 #### [facility] [address] [place], [address] GLUCOSE, UR Normal Normal Normal [facility] Comment on above: Order Comment: CLEAN CATCH Performed By: #### L 500.4100, L400.2010, L500.4050, L100.0100, L501.9985, L506.1001 #### [facility] [address] [place], [address] KETONE UR Negative Normal Negative [facility] Comment on above: Order Comment: CLEAN CATCH Performed By: #### L 500.4100, L400.2010, L500.4050, L100.0100, L501.9985, L506.1001 #### [facility] [address] [place], [address] LEUK ESTERASE 25 /ul Abnormal Negative [facility] Comment on above: Order Comment: CLEAN CATCH Performed By: #### L 500.4100, L400.2010, L500.4050, L100.0100, L501.9985, L506.1001 #### [facility] [address] [place], [address] Nitrite Ql (U) Negative Normal Negative [facility] Comment on above: Order Comment: CLEAN CATCH Performed By: #### L 500.410, L4.2010, L500.4050, L100.0100, L501.9985, L506.1001 #### [facility] [address] [place], [address] OCCULT BLOOD-UR 25 /ul Abnormal Negative [facility] Comment on above: Order Comment: CLEAN CATCH Performed By: #### L 500.4100, L4, L500.4050, L100.0100, L501.9985, L506.1001 #### [facility] [address] [place], [address] pH UR 6.0 Normal 5.0 - 8.0 [facility] Comment on above: Order Comment: CLEAN CATCH Performed By: #### L 500.4100, L4, L500.4050, L100.0100, L501.9985, L506.1001 #### [facility] [address] [place], [address] PROT DIPSTX 30 mg/dl Abnormal Negative [facility] Comment on above: Order Comment: CLEAN CATCH Performed By: #### L 500.4100, L400.2010, L500.4050, L100.0100, L501.9985, L506.1001 #### [facility] [address] [place], [address] SP.GR. DIPSTX 1.020 Normal 1.002-1.030 [facility] Comment on above: Order Comment: CLEAN CATCH Performed By: #### L 500.4100, L400.2011, L500.4050, L100.0100, L501.9985, L506.1001 #### [facility] [address] [place], [address] UROBILI Normal Normal Normal [facility] Comment on above: Order Comment: CLEAN CATCH Performed By: #### L 500.4100, L400.2010, L500.4050, L100.0100, L501.9985, L506.1001 #### [facility] [address] [place], [address] Urine clarityOrdered By: Tyra Abdullahi on 10-30-2024 Clarity (U) Clear Clear [facility] Urine color determinationOrd ered By: Vinh Abdullahi on 10-30-2024 Color (U) Yellow Yellow [facility] Urine glucose detectionOrder ed By: Vinh Abdullahi on 10-30-2024 Glucose Ql (U) Normal mg/dl Normal [facility] Urine leukocyte esterase det ection by dipstickOrdered By: Vinh Abdullahi on 10-30-2024 Leukocyte esterase Test strip Ql (U) 25 /ul High Negative [facility] Urine pHOrdered By: Vinh clancy on 10-30-2024 pH (U) 6.0 [pH] 5.0 - 8.0 [facility] Urine specific gravity measu rementOrdered By: Vinh Abdullahi on 10-30-2024 Specific gravity (U) [Rel density] 1.020 1.002-1.030 [facility] Urine urobilinogen measureme ntOrdered By: Vinh Abdullahi on 10-30-2024 Urobilinogen Ql (U) Normal mg/dl Normal [facility] Vitamin D,25 Hydroxyon 10-30 Vitamin D 25-OH 29.5 ng/mL Low 30-100 [facility] Comment on above: Result Comment: Katelynn min D Status Deficiency: <20 ng/mL (50nmol/L) Insufficiency: 20-30 ng/mL (50-75 nmol/L) Sufficiency: 30-100 ng/mL (75-250 nmol/L) Toxicity: >100 ng/mL (>250 nmol/L) Performed By: #### L 500.4100, L400.2011, L500.4050, L100.0100, L501.9985, L506.1001 #### [facility] [address] [place], [address] White blood cell (WBC) count Ordered By: Vinh Abdullahi on 10-30-2024 WBC (Bld) [#/Vol] 9.1 10*3/uL 4.4-11.0 [facility] CNOVon 07-18-2024 CNOV Office Visit (ORMDNA) -------- KEYSHA ALBERTS ([id number]) 1950 F Date Time Provider Department 07/18/24 10:45 AM JOSEF SAVAGE During your visit today, we recorded the [...] subacromial bursa Informed Consent Consent Obtained: Verbal [place] Protocol A moment to CARE was completed. SIGN IN Personnel directly involved with the procedure wore the appropriate PPE. Special Equipment: N/A Patient/Surrogate Stated/Verified: Patient name, Date of , Relevant allergies and Intended procedure TIME (more content not included)... Normal [facility] Large Joint Arthro/Inj: L muniz bacromial bursaon 07-18-2024 Josef Savage DO 07/18/2024 11:00 AM Large Joint Arthro/Inj: L subacromial bursa Informed Consent Consent Obtained: Verbal [place] Protocol A moment to CARE was completed. [...] Plan of Care Visit completed when applicable [facility] XR SHOULDER GENERAL 3V OR MO RE AP/TRUE AP/OTHER LEFTon 12-21-2022 [facility] Basophil percentageon 2021 Basophil percentage < 0.6 mg/dL 0.55-1.02 [facility] Work Phone: No Panel Informationon 08-12 Bedside Estimated GFR (eGFR) > 60.0000 mL/min >60 [facility] Work Phone: Albumin Elph [Mass/Vol]on Albumin [Mass/Vol] 3.4 g/dL [facility] Work Phone: Basophil percentageon 2021 Basophil percentage Comment [facility] Work Phone: Comment on above: No monoclonality det ected.Performed at: [facility] [place] [id number] Director: Braxton Wright PhD, Phone: [phone] Interpretation of serum or p lasma protein pattern by immunofixation (narrative resulton 07-18-2021 Protein Fractions Immunofixation Rafael [Interp] See comment [facility] Work Phone: Comment on above: Result: Not Observed No Panel Informationon 07-18 Addendum Document Comment [facility] Work Phone: Comment on above: Protein electrophore sis scan will follow via computer,mail, or pulp roller delivery. Serum [id number] measu rement by electrophoresison 07-18-2021 Alpha 1 globulin Elph [Mass/Vol] 0.3 g/dL [facility] Work Phone: Alpha 1 globulin Elph [Mass/Vol] 0.7 g/dL [facility] Work Phone: Serum globulin measurement ( mass/volume)on 07-18-2021 Globulin (S) [Mass/Vol] 3.0 g/dL [facility] Work Phone: Serum or plasma IgA measurem ent (mass/volume)on 07-18-2021 IgA [Mass/Vol] 167 mg/dL [facility] Work Phone: Serum or plasma IgG measurem ent (mass/volume)on 07-18-2021 IgG [Mass/Vol] 985 mg/dL [facility] Work Phone: Serum or plasma IgM measurem ent (mass/volume)on 07-18-2021 IgM [Mass/Vol] 69 mg/dL [facility] Work Phone: Serum or plasma beta globuli n measurement by electrophoresis (mass/volume)on 07-18-2021 Beta globulin Elph [Mass/Vol] 1.0 g/dL [facility] Work Phone: Serum or plasma gamma globul in measurement by electrophoresis (mass/volume)on 07-18-2021 Gamma globulin Elph [Mass/Vol] 1.0 g/dL [facility] Work Phone: Serum or plasma immunoelectr ophoresis interpretation (nominal result)on 07-18-2021 Interpretation IEP [Interp] Comment [facility] Work Phone: Comment on above: No monoclonality det ected. Thin prep Papanicolaou smear with manual screeningon 07-18-2021 Thin prep Papanicolaou smear with manual screening 1.2 [facility] Work Phone: Total protein bloodon 2021 Protein [Mass/Vol] 6.4 g/dL [facility] Work Phone: Basophil percentageon 2021 Ammonia (P) [Moles/Vol] 13.0 umol/L -32 [facility] Work Phone: Bilirubin [Mass/Vol] 0.30 mg/dL 0.20-1.00 [facility] Work Phone: Comment on above: For patients on eltr ombopag therapy, use of Dimension Friedens TBIL is not recommended. Chloride [Moles/Vol] 109 mmol/L 98-107 [facility]: Glucose [Mass/Vol] 92 mg/dL 74-106 [facility] Work [facility]: Potassium [Moles/Vol] 4.2 mmol/L 3.5-5.1 [facility] Work Phone: Protein [Mass/Vol] 6.6 g/dL 6.4-8.2 [facility] Work Phone: Sodium [Moles/Vol] 142 mmol/L 136-145 [facility] Work Phone: WBC (Bld) [#/Vol] 7.2 10*3/uL 4.4-11.0 [facility] Work Phone: Blood erythrocytes count (nu mber/volume)on 07-07-2021 RBC (Bld) [#/Vol] 4.22 10*6/uL 4.2-5.4 [facility] Work Phone: Blood hemoglobin measurement (mass/volume)on 07-07-2021 Hemoglobin (Bld) [Mass/Vol] 13.3 g/dL 12.0-15.0 [facility] Work Phone: Blood platelet mean volumeon 07-07-2021 Platelet mean volume (Bld) [Entitic vol] 10.3 fL 6.2-12.0 [facility] Work Phone: Determination of erythrocyte mean corpuscular volume (MCV)on 07-07-2021 MCV (RBC) [Entitic vol] 94.8 fL 81-99 [facility] Work Phone: Hematocrit Auto (Bld) [Volum e fraction]on 07-07-2021 Hematocrit (Bld) [Volume fraction] 40.0 % 37-47 [facility] Work Phone: Laboratory - Chemistry and C hemistry - challengeon 07-07-2021 ALP [Catalytic activity/Vol] 121 U/L 45-117 [facility] Work Phone: ALT [Catalytic activity/Vol] 23 U/L 13-56 [facility] Work Phone: CO2 [Moles/Vol] 26.0 mmol/L 21.0-32.0 [facility] Work Phone: Cobalamin (Vitamin B12) [Mass/Vol] 442 pg/mL 211-911 [facility] Work Phone: Globulin (S) [Mass/Vol] 3.2 g/dL 2.2-4.2 [facility] Work Phone: Urea nitrogen/Creatinine [Mass ratio] 16.0 mg/mg 10-20 [facility] Work Phone: Laboratory - Hematology and Cell countson 07-07-2021 Erythrocyte distribution width (RBC) [Entitic vol] 44.3 fL 35.1-43.9 [facility] Work Phone: Erythrocyte distribution width (RBC) [Ratio] 12.7 % 11.6-14.6 [facility] Work Phone: MCH (RBC) [Entitic mass] 31.5 pg 27.0-32.0 [facility] Work Phone: MCHC Auto (RBC) [Mass/Vol]on 07-07-2021 MCHC (RBC) [Mass/Vol] 33.3 g/dL 32-36 [facility] Work Phone: No Panel Informationon 07-07 Estimated GFR (MDRD) Amer 89 mL/min >60 [facility] Work Phone: Comment on above: GFR Calc Estimated GFR (MDRD) Non-Af Amer 74 mL/min >60 [facility] Work Phone: Comment on above: Non- GFR Calc Free Lambda Light Chains, Quant 12.9 mg/L [facility] Work Phone: Thyroid Stimulating Hormone (TSH) 0.66 uIU/mL 0.358-3.74 [facility] Work Phone: Platelets bldon 07-07-2021 Platelets (Bld) [#/Vol] 287 10*3/uL 150-450 [facility] Work Phone: Serum immunoglobulin kappa l ight chains/immunoglobulin lambda light chains mass ratioon 07-07-2021 Immunoglobulin light chains.kappa/Immunoglobu rock light chains.lambda (S) [Mass ratio] 2.09 [facility] Work Phone: Comment on above: Performed at: [address] [id number] Director: Braxton Wright PhD, Phone: [phone] Serum or plasma albumin nick urement (mass/volume)on 07-07-2021 Albumin [Mass/Vol] 3.4 g/dL 3.2-5.0 [facility] Work Phone: Serum or plasma albumin/glob ulin mass ratioon 07-07-2021 Albumin/Globulin [Mass ratio] 1.1 {ratio} 0.9-2.4 [facility] Work Phone: Serum or plasma calcium nick urement (mass/volume)on 07-07-2021 Calcium [Mass/Vol] 8.9 mg/dL 8.5-10.1 [facility] Work Phone: Serum or plasma creatinine m easurement (mass/volume)on 07-07-2021 Creatinine [Mass/Vol] 0.81 mg/dL 0.55-1.02 [facility] Work Phone: Comment on above: The validity of the calculated GFR & GFRAA in patients over 70 years has not been determined. Clinical correlation is essential. Serum or plasma folate measu rement (mass/volume)on 07-07-2021 Folate [Mass/Vol] 32.50 ng/mL 3.1-55.4 [facility] Work Phone: Serum or plasma immunoglobul in kappa light chains measurement (mass/volume)on 07-07-2021 Immunoglobulin light chains.kappa [Mass/Vol] 26.9 mg/L [facility] Work Phone: Serum or plasma urea nitroge n measurement (mass/volume)on 07-07-2021 Urea nitrogen [Mass/Vol] 13 mg/dL 7-18 [facility] Work Phone: Thin prep Papanicolaou smear with manual screeningon 07-07-2021 Thin prep Papanicolaou smear with manual screening 25 U/L 15-37 [facility] Work Phone: Thin prep Papanicolaou smear with manual screening 7 5-15 [facility] Work Phone: Office Visiton 12-22-2016 Protein mass conc Done [facility] Work Phone: Tobacco smoking status [facility] Never smoker [facility] Work Phone: Office Visiton 12-04-2011 Documentation of current medications (procedure) Done Invalid Interpretation Code [facility] Work Phone: Protein mass conc Done [facility] Work Phone: Office Visiton 11-09-2011 Tobacco smoking status [facility] never smoker [facility] Work Phone: Tobacco use [facility] never smoker Invalid Interpretation Code [facility] Work Phone: Large Joint Arthro/Inj: L muniz bacromial bursa [facility] Vital Signs Date Time Vital Sign Value Performing Clinician Facility 06-29-2022 14:38-0500 Body height 158.[address] Vinh Abdullahi Work Phone: [facility] 06-29-2022 14:38-0500 Body mass index (BMI) [Ratio] 20.4 kg/m2 Dr. Vinh Abdullahi Work Phone: [facility] 06-29-2022 14:38-0500 Body temperature 98.6 [degF] Dr. Vinh Abdullahi Work Phone: [facility] 06-29-2022 14:38-0500 Body weight 51.[address] Vinh Abdullahi Work Phone: [facility] 06-29-2022 14:38-0500 Diastolic blood pressure 80 mm[Hg] Dr. Vinh Abdullahi Work Phone: [facility] 06-29-2022 14:38-0500 Heart rate 77 /min Dr. Vinh Abdullahi Work Phone: [facility] 06-29-2022 14:38-0500 Respiratory rate 16 /min Dr. Vinh Abdullahi Work Phone: [facility] 06-29-2022 14:38-0500 SaO2% (BldA) [Mass fraction] 98 % Dr. Vinh Abdullahi Work Phone: [facility] 06-29-2022 14:38-0500 Systolic blood pressure 140 mm[Hg] Dr. Vinh Abdullahi Work Phone: [facility] 07-07-2021 07:03-0500 Body height 158.[address] Vinh Abdullahi Work Phone: [facility] Work Phone: 07-07-2021 07:03-0500 Body mass index (BMI) [Ratio] 19.6 kg/m2 Dr. Vinh Abdullahi Work Phone: [facility] Work Phone: 07-07-2021 07:03-0500 Body weight 49.[address] Vinh Abdullahi Work Phone: [facility] Work Phone: 07-07-2021 07:03-0500 Diastolic blood pressure 88 mm[Hg] Dr. Vinh Abdullahi Work Phone: [facility] Work Phone: 07-07-2021 07:03-0500 Heart rate 77 /min Dr. Vinh Abdullahi Work Phone: [facility] Work Phone: 07-07-2021 07:03-0500 SaO2% (BldA) [Mass fraction] 98 % Dr. Vinh Abdullahi Work Phone: [facility] Work Phone: 07-07-2021 07:03-0500 Systolic blood pressure 132 mm[Hg] Dr. Vinh Abdullahi Work Phone: [facility] Work Phone: 12-04-2011 11:04-0400 BP Diastolic 110 mm[facility]Hg[facility] Work Phone: 12-04-2011 11:04-0400 BP Systolic 160 mm[Hg] [facility] Work Phone: 12-04-2011 11:04-0400 Pulse (Heart Rate) 74 /min [facility] Work Phone: 12-04-2011 11:04-0400 Weight 58.97 kg [facility] Work Phone: 10-26-2011 10:53-0400 Height 160.02 [facility] Work Phone: Encounters Encounter Date Encounter Type Care Provider Facility Start: 12-02-2024 ambulatory Vinh Abdullahi Facility: [facility] Start: 10-30-2024 End: 10-30-[address] Vinh Abdullahi DO Work Phone: [facility] Work Phone: Start: 10-30-2024 End: 10-30-[address] Vinh Abdullahi DO -Laboratory [place] Work Phone: Start: 10-30-2024 End: 10-30-2024 ambulatory Vinh Abdullahi Facility:[facility] Start: 07-18-2024 End: 07-18-2024 ambulatory JOSEF SAVAGE Facility:[facility] Start: 07-18-2024 End: 07-18-2024 Patient encounter procedure Josef Savage DO Work Phone: Orthopaedics Comment on above: Chronic left shoulde r pain (Primary Dx); Primary osteoarthritis of left shoulder Start: 10-15-2023 End: 10-15-2023 ambulatory [facility] Work Phone: Start: 10-15-2023 End: 10-15-2023 Patient encounter procedure [facility], [place] Work Phone: Start: 05-30-2023 End: 05-30-2023 ambulatory [facility] Work Phone: Start: 05-30-2023 End: 05-30-2023 [facility] Start: 12-21-2022 End: 12-21-2022 Patient encounter procedure LisaGeraldine Savage DO Work Phone: Orthopaedics Comment on above: Chronic left shoulde r pain (Primary Dx); Primary osteoarthritis of left shoulder Start: 12-21-2022 End: 12-21-2022 Subsequent hospital visit by physician [facility] Work Phone: Radiology Comment on above: Left shoulder pain, unspecified chronicity [M25.512] Start: 07-27-2022 End: 07-27-[address] Vinh Abdullahi Work Phone: [facility] Work Phone: Start: 07-27-2022 End: 07-27-[address] Vinh Abdullahi Work Phone: [facility], [facility] Start: 06-29-2022 End: 06-29-[address] Vinh Abdullahi Work Phone: [facility] Start: 08-31-2021 End: 08-31-[address] Vinh Abdullahi Work Phone: [facility]/Neurology Start: 08-12-2021 Non-patient / Non-visit Dr. Janice Abdullahi Work Phone: [facility] Start: 08-12-2021 End: 08-12-[address] Vinh Abdullahi Work Phone: [facility] Start: 07-18-2021 End: 07-18-[address] Vinh Abdullahi Work Phone: [facility] Start: 07-07-2021 End: 07-07-[address] [facility] Procedures Date Procedure Procedure Detail Performing Clinician [...] Radex shoulder compl ete minimum 2 views Liasjorden Savage DO Work Phone: Start: 07-27-[address] Vinh sanchez Work Phone: Start: 08-12-2021 MRI of brain with contrast Dr. Vinh Abdullahi Work Phone: Plan of Treatment Date Care Activity Detail Author Start: 2026 RSV Vaccine (1 - 1-dose 75+ series) RSV Vaccine (1 - 1-dose 75+ series) [facility] Start: 07-25-2025 Screening for malignant neoplasm of colon [facility] Start: 06-11-2024 Advance Directive Discussion Advance Directive Discussion [facility] Start: 02-10-2024 Covid-19 Vaccine ( season) Covid-19 Vaccine ( season) [facility] Start: 02-10-2024 Influenza vaccination [facility] Start: 08-26-2023 Urine microalbumin profile DTaP,Tdap,Td Vaccine (2 - Td or Tdap) [facility] Start: 02-09-2023 Covid-19 Vaccine ( season) Covid-19 Vaccine ( season) [facility] Start: 02-09-2023 Influenza vaccination [facility] Start: 06-11-2022 ADVANCE DIRECTIVE DISCUSSION ADVANCE DIRECTIVE DISCUSSION [facility] Start: 06-11-2022 DEPRESSION ASSESSMENT DEPRESSION ASSESSMENT [facility] Start: 07-21-2021 COVID-19 VACCINE (2 - Booster for Ellie series) COVID-19 VACCINE (2 - Booster for Ellie series) [facility] Start: 12-27-2016 End: 12-27-2016 Occupational Therapy General Occupational Therapy [facility], [address] [place] [address], [address] [facility] Work Phone: Start: 12-22-2016 End: 12-22-2016 Appointment Appointment [facility] Work Phone: Start: 12-22-2016 End: 12-22-2016 Radex shoulder complete minimum 2 views X-Ray, Shoulder [facility] Work Phone: Start: 2016 BONE DENSITY BONE DENSITY [facility] Start: 2016 Bone Density Screening Bone Density Screening [facility] Start: 2016 Pneumococcal Vaccine: 65+ (1 - PCV) Pneumococcal Vaccine: 65+ (1 - PCV) [facility] Start: 2016 PNEUMOCOCCAL: 65+ (1 - PCV) PNEUMOCOCCAL: 65+ (1 - PCV) [facility] Start: 2016 Screening for osteoporosis Bone Density Screening [facility] Start: 12-08-2002 DIABETES SCREEN DIABETES SCREEN [facility] Start: 12-08-2002 Diabetes Screening Diabetes Screening [facility] Start: 2001 Pneumococcal Vaccine: 50+ (1 of 1 - PCV) Pneumococcal Vaccine: 50+ (1 of 1 - PCV) [facility] Start: 2001 SHINGRIX VACCINE (1 of 2) SHINGRIX VACCINE (1 of 2) [facility] Start: 1996 COLOGUARD (FIT-DNA) COLOGUARD (FIT-DNA) [facility] Start: 1996 Colonoscopy COLONOSCOPY [facility] Start: 1996 COLORECTAL CANCER SCREENING COLORECTAL CANCER SCREENING [facility] Start: [address] COLONOGRAPHY [facility] Start: 1996 FECAL OCCULT BLOOD FECAL OCCULT BLOOD [facility] Start: 1996 Lipid 1996 panel - Serum or Plasma Lipid Screening [facility] Start: 1996 Lipid panel Lipid Screening [facility] Start: 1996 LIPID SCREEN LIPID SCREEN [facility] Start: 1996 Screening for malignant neoplasm of colon [facility] Start: 1996 SIGMOIDOSCOPY SIGMOIDOSCOPY [facility] Start: 1991 Mammography [facility] Start: 1991 Screening for malignant neoplasm of breast Mammogram Screening [facility] Start: 1970 Urine microalbumin profile [facility] Start: 1969 Anxiety Screening Anxiety Screening [facility] Start: 1969 Depression Screening Depression Screening [facility] Start: 1969 HEPATITIS C SCREENING HEPATITIS C SCREENING [facility] Start: 1969 Hepatitis C screening Hepatitis C Screening [facility] Immunizations Immunization Date Immunization Notes Care Provider Lucia palencia 08-25-2013 tetanus and diphther ia toxoids, adsorbed, preservative free, for adult use (2 Lf of tetanus toxoid and 2 Lf of diphtheria toxoid) Dr. Vinh Abdullahi Work Phone: [facility] Payers Date Payer Category Payer Self-pay [id number] 2023 Medicare HUMANA MEDICARE HU[employer]NA GOLD PLUS [id number] 2023-Present [phone] [address] [address] [place] [address] HMO [id number] 2023 Private Health Insurance [id number] 2021 Unknown [employer]UE CARD PPO OOS [id number] 2021-Present [phone] [address] [place] [address] PPO [id number] Unknown [id number] Unknown [id number] Unknown [id number] Social History Date Type Detail Facility Start: 07-07-2021 End: 10-30-2022 Tobacco smoking status NHIS Unknown if ever smoked [facility] Start: 04-18-2018 Cigarettes [facility] Start: 1950 Sex Assigned At Female [facility] Start: 12-21-2022 Tobacco smoking stat [place] [facility] Ex[facility]smoker [facility] History of tobacco use Current smoker [facility] History of tobacco use Cigarette Smoker [facility] Start: 12-21-2022 Tobacco use and exposure Smokeless tobacco non-user [facility] Start: 12-21-2022 End: 07-18-2024 Alcohol intake Ex-drinker (finding) [facility] Start: 12-21-2022 End: 07-18-2024 History of Social function [facility] Start: 12-21-2022 End: 07-18-2024 Tobacco use panel [facility] National Score (1-100), lower number is lower risk 47 [facility] Start: 1950 Sex Assigned At Not on file [facility] Start: 10-30-2022 [facility] Clinical Notes 12-21-2022 to 07-18-2024 Josef Savage DO - 07/18/2024 10:40 AM Josef Rich DO - 12/21/2022 10:05 AM Nica Acosta RT(R) - 12/21/2022 9:30 AM EDT Note Date & Type Note Facility 07-18-2024 Note HNO ID: [id number] Author: JOSEF SAVAGE DO Service: ? Author [...] subacromial bursa Informed Consent Consent Obtained: Verbal [place] Protocol A moment to CARE was completed. [...] procedure. Correct si (more content not included)... [facility] 07-18-2024 History of Present illness Narrative Associated [...] subacromial bursa Informed Consent Consent Obtained: Verbal [place] Protocol A moment to CARE was completed. [...] applicable Josef OlveraP.HJarod documented in this encounter [facility] 12-21-2022 History of Present illness Narrative Associated [...] subacromial bursa Informed Consent Consent Obtained: Verbal [place] Protocol A moment to CARE was completed. [...] Savage D.O. M.P.HJarod documented in this encounter [facility] 12-21-2022 History of Present illness Narrative Radiology [...] 2022 9:36 AM documented in this encounter [facility] Evaluation note Diagnosis Onset Date Extrapyramidal and movement disorder, unspecified acute Parkinson's disease acute Polyneuropathy acute Right carotid bruit acute [facility] Work Phone: Evaluation note* Diagnosis Onset Date Resolution Status Extrapyramidal and movement disorder, unspecified chronic Polyneuropathy chronic Restless legs syndrome chron ic Right carotid bruit chronic Anxiety resolved [facility] Work Phone: Evaluation note* Diagnosis Chronic left shoulder pain- Primary Pain in joint, shoulder region Primary osteoarthritis of left shoulder Primary localized osteoarthrosis, shoulder region [facility] Diagnosis Left shoulder pain, unspecified chronicity documented [facility] encounter [facility] noteNo assessment information availableWUniversity [facility]als [facility] System Work Phone: Evaluation note* Diagnosis Chronic left shoulder pain- Primary Pain in joint, shoulder region Primary osteoarthritis of left shoulder Primary localized osteoarthrosis, shoulder region documented in this encounter [facility] for referral (narrative)* Diagnostic Procedure Only (Routine) - Closed Specialty Diagnoses / Procedures Referred By Contac t Referred To Contact XR IMAGING Diagnoses Left shoulder pain, unspecified chronicity Procedures XR SHOULDER GENERAL 3V OR MORE AP/TRUE AP/OTHER LEFT RADEX SHOULDER COMPLETE MINIMUM 2 [place] [address] [place] [address] [address] [place] [address] [place] [address] Referral ID Status Reason Start Date Expiration Date V isits Requested Visits Authorized [id number] Closed Auto-Generate d Referral 12/07/2022 01/06/2024 1 1 [facility] for referral (narrative)No reason for referral information availableWUniversity Hospitals Health System Work Phone: Reason for visit Narrative* Diagnostic Procedure Only (Routine) - Closed Specialty Diagnoses / Procedures Referred By Contac t Referred To Contact XR IMAGING Diagnoses Left shoulder pain, unspecified chronicity Procedures XR SHOULDER GENERAL 3V OR MORE AP/TRUE AP/OTHER LEFT RADEX SHOULDER COMPLETE MINIMUM 2 VIEWS Josef Savage DO [address] [place] [address] [place] [address] Referral ID Status Reason Start Date Expiration Date V isits Requested Visits Authorized [id number] Closed Auto-Generate d Referral 12/07/2022 01/06/2024 1 1 [facility] Chief Complaint and Reason for Visit Chief [...] Will No April 18 10:14am Power of Quality Assurance Technician No April 18, 2018 10:14am Advance Directive Response Recorded Date/ Time Advance Directives No May 3:28pm Living Will No April 18 9:14am Power of Quality Assurance Technician No April 18, 2018 9:14am Advance Directive [...] or prosecute any alcohol or drug abuse patient.[facility] Center[facility] the event this information is protected by the Federal Confidentiality of Alcohol and Drug Abuse Patient Records regulations: The Federal rules restrict any use of the information to criminally investigate or prosecute any alcohol or drug abuse patient.[facility] Center[facility] the event this information is protected by the Federal Confidentiality of Alcohol and Drug Abuse Patient Records regulations: The Federal rules restrict any use of the information to criminally investigate or prosecute any alcohol or drug abuse patient.[facility] Reason for Visit (unrecogniz ed section and content) Reason Comments New No injury. She is po st collarbone repair in 2018. Reason Comments Follow Up Pain Injections INFORMATION SOURCE (unrecogn ized section and content) DATE CREATED AUTHOR 07/20/2024 [facility] DATE CREATED AUTHOR AUTHOR'S ORGANIZ ATION 11/28/2024 [facility] FOR RECORDS PERTAINING TO PATIENTS WHO [...] BE BASED ON THE PRIMARY CLINICAL RECORDS. [employer] provides no warranty or guarantee of the accuracy or completeness of information in this document.
== END | disposition home or self-care (01) ==
LOC: BFHLAB 10:02
PROVIDERS: PCP Family Medicine; Visit Provider Family Medicine
DX: R19.7 Diarrhea, unspecified (principal)
CPT/HCPCS: 36415; 80053; 83630; 85025; 86140; 87177; 87209; 87493

== ENCOUNTER 2025-01-30 08:04 | Day surgery (SDC) | payer MEDICARE, SELFPAY ==
--- NOTE | 2025-01-28 15:55 | PAT.ANESEVAL ---
Pre-Assessment Diagnosis/Proposed Procedure Planned Operative Procedure(s): COLONOSCOPY Anesthesia History Anesthesia History - pediatric cardiologist: Anesthesia History - pediatric cardiologist Hx Hospitalization No 01/28/25 11:20 Any Problems With Anesthesia No 01/28/25 11:20 Cholinesterase deficiency No 01/28/25 11:20 You/Your Family Experience No 01/28/25 11:20 fever (hyperthermia) with Relationship Recent Exposure to Contagious No 04/24/18 09:06 Disease Does patient have nerve No 01/28/25 11:20 stimulator Patient instructed to have device shut off --Does patient have Pacemaker or ICD? When Was Last Pacemaker Check QUESTION #4 FULL TEXT: You/Your Family Experience fever (hyperthermia) with Anesthesia Last Oral Intake Last Oral intake: Last Oral Intake NPO since Meds taken in AM with sips of water? Meds patient instructed to take am of surgery PONV PONV - pediatric cardiologist: PONV - pediatric cardiologist Female Yes 01/28/25 11:20 HX of Motion Sickness No 01/28/25 11:20 HX of N/V After Surgery No 01/28/25 11:20 Non-Smoker No 01/28/25 11:20 Duration of Surgery greater No 01/28/25 11:20 than 60 minutes Number of Risk Factors 1 01/28/25 11:20 PONV Score Low Risk 01/28/25 11:20 Height & Weight Height & Weight: Anesthesia: Height & Weight Height 5 ft 3 in 01/08/25 13:45 Respiratory Assessment Respiratory Assessment - pediatric cardiologist: Respiratory Tract Infection Hx - pediatric cardiologist Hx Respiratory Tract Infection No 01/28/25 11:20 STOP Sleep Apnea STOP Sleep Apnea - pediatric cardiologist: STOP Sleep Apnea - pediatric cardiologist Hx Hypertension Yes 01/28/25 11:20 Hx Sleep Apnea No 01/28/25 11:20 CPAP No 04/24/18 12:52 BIPAP No 04/18/18 09:14 Do you snore loudly (louder No 01/28/25 11:20 than talking or can be heard Do you often feel tired/ No 01/28/25 11:20 fatigued/ sleepy during daytime? Has anyone observed you stop No 01/28/25 11:20 breathing during sleep? STOP Results Negative 01/28/25 11:20 QUESTION #5 FULL TEXT : Do you snore loudly (louder than talking or can be heard through closed doors)? Tobacco Use History Tobacco Use History - pediatric cardiologist: Tobacco Use History - pediatric cardiologist Tobacco Use Smoking Status Current every day smoker 01/28/25 11:20 Hx Tobacco Use Yes 01/28/25 11:20 Years Smoking Packs Smoked per Day Smoking Cessation Date was within the last 15 years Hx Smoking Cessation Date Hx Smoking Cessation Counseling Hematologic Medial History Hematologic Hx - pediatric cardiologist: Hematologic Medical Hx - registered nurse fetal Hx of Blood Transfusion No 01/28/25 11:20 Hx of Transfusion in last 3 No 01/28/25 11:20 Months Date of Last Transfusion (if within last 3 months) Ever experience any problems No 01/28/25 11:20 with transfusion(s)? Specify any problems Hx of Preganancy in last 3 No 01/28/25 11:20 Months Nurse Filling Out Transfusion [email or web address] 01/28/25 11:20 & Questions: Date: 01/28/25 01/28/25 11:20 Time: 11:22 01/28/25 11:20 Patient unable to answer at this time (ie. confused, unrespo /Reproduction History /Reproductive History - pediatric cardiologist: /Reproductive Hx- pediatric cardiologist Hx Now Gestational Age (in weeks): EDC: Hx Hx Para Hx Section SAB PFSH Medical History (Updated 01/28/25 @ 11:27 by Doroteo Pennington) Wears dentures Back pain Smoker Emphysema, unspecified Prolapsed bladder Osteoporosis Kidney stones Hypercholesterolemia Hypertension Carpal tunnel syndrome Back problem Arthritis Home Medications Medication Instructions Recorded Last Taken Type atorvastatin 40 mg tablet 40 mg PO QHS 01/21/15 Unknown History metoprolol tartrate 25 mg tablet 25 mg PO BID 01/21/15 04/24/18 History tramadol 50 mg tablet 100 mg PO BID PAIN 01/21/15 Unknown History ibuprofen 800 mg tablet 800 mg PO TID PRN PRN Pain #30 tabs 10/01/17 Unknown Rx gabapentin 400 mg capsule 400 mg PO TID 07/07/21 Unknown History skiipntr-mxf-kfrxw ac 400 1 tab PO DAILY 07/07/21 Unknown History mcg-calcium carb 500 mg-vit K1 20 mcg tablet (Women's 50 Plus Multivitamin) aspirin 81 mg tablet 81 mg PO QDAY 01/08/25 01/25/25 History cholecalciferol (vitamin D3) 50 50 mcg PO QDAY 01/08/25 Unknown History mcg (2,000 unit) capsule losartan 25 mg tablet 25 mg PO QDAY 01/08/25 Unknown History potassium chloride 20 mEq 20 meq PO BID 01/08/25 Unknown History tablet,extended release (K-Tab) ropinirole 1 mg tablet 2 mg PO TID 01/08/25 Unknown History Allergy/AdvReac Type Severity Reaction Status Date / Time No Known Allergies Allergy Verified 01/28/25 11:17 Family History (Updated 01/08/25 @ 13:45 by Emma Vaughan) Brother Myocardial infarction, Onset Age: 68 Father Arthritis Alzheimer dementia Surgical History (Updated 01/28/25 @ 11:27 by Doroteo Pennington) H/O shoulder surgery H/O: hysterectomy History of carpal tunnel surgery Social History (Updated 01/08/25 @ 13:45 by Emma Vaughan) Smoking Status: Current every day smoker tobacco type: cigarettes Tobacco: How many years used: 45 Electronic Cigarette Use: not used second hand exposure: No quit status: considering quitting alcohol intake: never substance use type: does not use what type of physical activity do you participate in: none marco a/sikhism: None seatbelt use: always Audit: Pertinent Findings Pertinent Findings EKG Perinent findings: January 22, 2015. Normal sinus rhythm. Nonspecific T wave abnormality. Additional pertinent findings: December 24, 2024. Potassium is 2.6 millimoles per liter Recommendation Anesthesia Recommendation Anesthesia recommendation: F/U recommended (Patient needs to have her potassium repeated prior to starting prep for colonoscopy. She should have a repeat EKG as well.)
--- NOTE | 2025-01-29 08:21 | EKG12_ITS ---
Test Reason : PREOP Blood Pressure : */* mmHG Vent. Rate : 67 BPM Atrial Rate : 67 BPM P-R Int : 142 ms QRS Dur : 84 ms QT Int : 416 ms P-R-T Axes : 57 21 67 degrees QTcB Int : 439 ms Normal sinus rhythm Normal ECG Confirmed by DIANE WU, ERICH ([id number]), photograph editor RODRIGUE EASON ([id number]) on 01/30/2025 7:35:44 AM Referred By: Vinh Abdullahi Confirmed By: ERICH CONTRERAS MD
[2025-01-29 10:35] LABS: Potassium 4.4 mmol/L (3.3-5.1)
--- NOTE | 2025-01-29 11:51 | PAT.ANE_ITS ---
Pre-Assessment Diagnosis/Proposed Procedure Planned Operative Procedure(s): COLONOSCOPY Anesthesia History Anesthesia History - automatic bandsaw tender: Anesthesia History - automatic bandsaw tender Hx Hospitalization No 01/28/25 11:20 Any Problems With Anesthesia No 01/28/25 11:20 Cholinesterase deficiency No 01/28/25 11:20 You/Your Family Experience No 01/28/25 11:20 fever (hyperthermia) with Relationship Recent Exposure to Contagious No 04/24/18 09:06 Disease Does patient have nerve No 01/28/25 11:20 stimulator Patient instructed to have device shut off --Does patient have Pacemaker or ICD? When Was Last Pacemaker Check QUESTION #4 FULL TEXT: You/Your Family Experience fever (hyperthermia) with Anesthesia Last Oral Intake Last Oral intake: Last Oral Intake NPO since Meds taken in AM with sips of water? Meds patient instructed to take am of surgery PONV PONV - automatic bandsaw tender: PONV - automatic bandsaw tender Female Yes 01/28/25 11:20 HX of Motion Sickness No 01/28/25 11:20 HX of N/V After Surgery No 01/28/25 11:20 Non-Smoker No 01/28/25 11:20 Duration of Surgery greater No 01/28/25 11:20 than 60 minutes Number of Risk Factors 1 01/28/25 11:20 PONV Score Low Risk 01/28/25 11:20 Height & Weight Height & Weight: Anesthesia: Height & Weight Height 5 ft 3 in 01/08/25 13:45 Respiratory Assessment Respiratory Assessment - automatic bandsaw tender: Respiratory Tract Infection Hx - automatic bandsaw tender Hx Respiratory Tract Infection No 01/28/25 11:20 STOP Sleep Apnea STOP Sleep Apnea - automatic bandsaw tender: STOP Sleep Apnea - automatic bandsaw tender Hx Hypertension Yes 01/28/25 11:20 Hx Sleep Apnea No 01/28/25 11:20 CPAP No 04/24/18 12:52 BIPAP No 04/18/18 09:14 Do you snore loudly (louder No 01/28/25 11:20 than talking or can be heard Do you often feel tired/ No 01/28/25 11:20 fatigued/ sleepy during daytime? Has anyone observed you stop No 01/28/25 11:20 breathing during sleep? STOP Results Negative 01/28/25 11:20 QUESTION #5 FULL TEXT : Do you snore loudly (louder than talking or can be heard through closed doors)? 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 Specify any problems Hx of Preganancy in last 3 No 01/28/25 11:20 Months Nurse Filling Out Transfusion [email or web address] 01/28/25 11:20 & Questions: Date: 01/28/25 01/28/25 11:20 Time: 11:22 01/28/25 11:20 Patient unable to answer at this time (ie. confused, unrespo /Reproduction History /Reproductive History - automatic bandsaw tender: /Reproductive Hx- automatic bandsaw tender Hx Now Gestational Age (in weeks): EDC: Hx Hx Para Hx Section SAB PFSH Medical History (Updated 01/28/25 @ 11:27 by Doroteo Pennington) Wears dentures Back pain Smoker Emphysema, unspecified Prolapsed bladder Osteoporosis Kidney stones Hypercholesterolemia Hypertension Carpal tunnel syndrome Back problem Arthritis Home Medications Medication Instructions Recorded Last Taken Type atorvastatin 40 mg tablet 40 mg PO QHS 01/21/15 Unknow n History metoprolol tartrate 25 mg tablet 25 mg PO BID 01/21/15 04/24/18 History tramadol 50 mg tablet 100 mg PO BID PAIN 01/21/15 Unknown History ibuprofen 800 mg tablet 800 mg PO TID PRN PRN Pain # 30 tabs 10/01/17 Unknown Rx gabapentin 400 mg capsule 400 mg PO TID 07/07/21 Unkno wn History wffaavmy-zvh-heeit ac 400 1 tab PO DAILY 07/07/21 Unkn own History mcg-calcium carb 500 mg-vit K1 20 mcg tablet (Women's 50 Plus Multivitamin) aspirin 81 mg tablet 81 mg PO QDAY 01/08/2501/25 History cholecalciferol (vitamin D3) 50 50 mcg PO QDAY 5 Unknown History mcg (2,000 unit) capsule losartan 25 mg tablet 25 mg PO QDAY 01/08/25 Unkno wn History potassium chloride 20 mEq 20 meq PO BID 01/08/25 Unkno wn History tablet,extended release (K-Tab) ropinirole 1 mg tablet 2 mg PO TID 01/08/25 Unknown History Allergy/AdvReac Type Severity Reaction Status Date / Time No Known Allergies Allergy Verified 01/28/25 11:17 Family History (Updated 01/08/25 @ 13:45 by Emma aVughan) Brother Myocardial infarction, Onset Age: 68 Father Arthritis Alzheimer dementia Surgical History (Updated 01/28/25 @ 11:27 by Doroteo Pennington) H/O shoulder surgery H/O: hysterectomy History of carpal tunnel surgery Social History (Updated 01/08/25 @ 13:45 by Emma Vaughan) Smoking Status: Current every day smoker tobacco type: cigarettes Tobacco: How many years used: 45 Electronic Cigarette Use: not used second hand exposure: No quit status: considering quitting alcohol intake: never substance use type: does not use what type of physical activity do you participate in: none marco a/mormon: None seatbelt use: always Audit: Pertinent Findings HISTORY of Pertinent Findings History of Pertinent Findings: EKG Pertinent Findings EKG Perinent findings January 22, 2015. Normal 01/28/25 16:31 sinus rhythm. Nonspecific T wave abnormality. Additional Pertinent Findings Additional pertinent findings December 24, 2024. Potassium is 01/28/25 16:31 2.6 millimoles per liter Pertinent Findings Additional pertinent findings: Patient's potassium is now 4.4 from 2.6. Recommendation Anesthesia Recommendation Anesthesia recommendation: OPTIMIZED for anesthesia
[2025-01-30] VITALS (7 sets, daily range): BP systolic 106–138; BP diastolic 57–72; PULSE 62–72; RESP 14–16; TEMP 36–36.8; O2SAT 97–100; BMI 19.5
[2025-01-30] MEDS: Lactated Ringers 1,000 ML 15 ML IV (08:26)
--- NOTE | 2025-01-30 08:52 | PCM.PRE.AN2 ---
ASA Classification* ASA Classification ASA Classification: 2 Assessment & Plan Anesthesia* Anesthesia Assessment Anesthesia Assessment: Discussed sedation and/or anesthesia options, risks, benefits, and alternatives with patient/parents/legal guardian/POA. Questions invited. The patient/parents/legal guardian/POA seems to understand and agrees to proceed with anesthesia plan. Reviewed the physical assessment, medical history, allergy history and patient home medications list prior to surgery/procedure/anesthetic and documented any changes. Performed airway and anesthesia risk assessments. Anesthesia Type Anesthesia Type: MAC History Source History Obtained from:: Patient and Chart Anesthesia Focused Assessment* Temperature: 98.3 F Pulse Rate: 63 Blood Pressure: 138/59 Respiratory Rate: 16 Pulse Ox: 100 Oxygen Delivery Method: Room Air Airway Assessment Mouth opens: >3 cm Mallampati Score: I Teeth Condition: Dentures (Patient has full upper and lower dentures.) Neck Range of motion (ROM): Full ROM Labs Anesthesia Preop lab: CBC WBC 8.9 K/mm3 (4.4-11.0) 12/24/24 10:03 12/24/24 RBC 4.13 M/mm3 (4.2-5.4) L 12/24/24 10:03 12/24/24 Hgb 12.8 g/dL (12.0-15.0) 12/24/24 10:03 12/24/24 Hct 37.1 % (37-47) 12/24/24 10:03 12/24/24 Plt Count 270 K/mm3 (150-450) 12/24/24 10:03 12/24/24 CHEMISTRY Potassium 4.4 mmol/L (3.3-5.1) 01/29/25 08:37 01/29/25 Sodium 143 mmol/L (133-145) 12/24/24 10:03 12/24/24 BUN 11 mg/dL (4-19) 12/24/24 10:03 12/24/24 Creatinine 0.84 mg/dL (0.70-1.20) 12/24/24 10:03 12/24/24 Glucose 78 mg/dL (70-99) 12/24/24 10:03 12/24/24 TSH 0.66 uIU/mL (0.358-3.74) 07/07/21 08:59 07/07/21 COAG Pre-Assessment Diagnosis/Proposed Procedure Planned Operative Procedure(s): COLONOSCOPY Anesthesia History 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 When Was Last Pacemaker Check QUESTION #4 FULL TEXT: You/Your Family Experience fever (hyperthermia) with Anesthesia Last Oral Intake Last Oral intake: Last Oral Intake NPO since 06:00 01/30/25 08:23 Meds taken in AM with sips of Yes 01/30/25 08:23 water? Meds patient instructed to take am of surgery Any additional information?: Yes NPO since: 06:00 (Patient took her meds at 6 AM.) Meds taken in AM with sips of water?: Yes PONV PONV - dental appliance mechanic: PONV - dental appliance mechanic Female Yes 01/28/25 11:20 HX of Motion Sickness No 01/28/25 11:20 HX of N/V After Surgery No 01/28/25 11:20 Non-Smoker No 01/28/25 11:20 Duration of Surgery greater No 01/28/25 11:20 than 60 minutes Number of Risk Factors 1 01/28/25 11:20 PONV Score Low Risk 01/28/25 11:20 Height & Weight Height & Weight: Anesthesia: Height & Weight Height 5 ft 3 in 01/30/25 08:23 Weight: 50 kg 01/30/25 08:23 Body Mass Index (BMI) 19.5 01/30/25 08:23 Respiratory Assessment Respiratory Assessment - dental appliance mechanic: Respiratory Tract Infection Hx - dental appliance mechanic Hx Respiratory Tract Infection No 01/28/25 11:20 STOP Sleep Apnea STOP Sleep Apnea - dental appliance mechanic: STOP Sleep Apnea - dental appliance mechanic Hx Hypertension Yes 01/28/25 11:20 Hx Sleep Apnea No 01/28/25 11:20 CPAP No 04/24/18 12:52 BIPAP No 04/18/18 09:14 Do you snore loudly (louder No 01/28/25 11:20 than talking or can be heard Do you often feel tired/ No 01/28/25 11:20 fatigued/ sleepy during daytime? Has anyone observed you stop No 01/28/25 11:20 breathing during sleep? STOP Results Negative 01/28/25 11:20 QUESTION #5 FULL TEXT : Do you snore loudly (louder than talking or can be heard through closed doors)? 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 Specify any problems Hx of Preganancy in last 3 No 01/28/25 11:20 Months Nurse Filling Out Transfusion [id number] 01/28/25 11:20 & Questions: Date: 01/28/25 01/28/25 11:20 Time: 11:01/28/25 11:20 Patient unable to answer at this time (ie. confused, unrespo /Reproduction History /Reproductive History - dental appliance mechanic: /Reproductive Hx- dental appliance mechanic Hx Now Gestational Age (in weeks): EDC: Hx Hx Para Hx Section SAB Active Medications Active Medications: Current Medications Generic Name Dose Route Start Last Admin Trade Name Freq PRN Reason Stop Dose Admin Lactated Ringer's 1,000 mls @ 15 mls/hr 01/30/25 08:15 01/30/25 08:26 IV 15 mls/hr .Q48H JESSIE Administration PFSH Medical History Wears dentures Back pain Smoker Emphysema, unspecified Prolapsed bladder Osteoporosis Kidney stones Hypercholesterolemia Hypertension Carpal tunnel syndrome Back problem Arthritis Home Medications Medication Instructions Recorded Last Taken Type atorvastatin 40 mg tablet 40 mg PO QHS 01/21/15 Unknown History metoprolol tartrate 25 mg tablet 25 mg PO BID 01/21/15 01/30/25 History tramadol 50 mg tablet 100 mg PO BID PAIN 01/21/15 Unknown History ibuprofen 800 mg tablet 800 mg PO TID PRN PRN Pain #30 tabs 10/01/17 Unknown Rx gabapentin 400 mg capsule 400 mg PO TID 07/07/21 01/30/25 History zudxacgb-xwv-wmawn ac 400 1 tab PO DAILY 07/07/21 Unknown History mcg-calcium carb 500 mg-vit K1 20 mcg tablet (Women's 50 Plus Multivitamin) aspirin 81 mg tablet 81 mg PO QDAY 01/08/25 01/25/25 History cholecalciferol (vitamin D3) 50 50 mcg PO QDAY 01/08/25 Unknown History mcg (2,000 unit) capsule losartan 25 mg tablet 25 mg PO QDAY 01/08/25 01/30/25 History potassium chloride 20 mEq 20 meq PO BID 01/08/25 Unknown History tablet,extended release (K-Tab) ropinirole 1 mg tablet 2 mg PO TID 01/08/25 01/30/25 History Allergy/AdvReac Type Severity Reaction Status Date / Time No Known Allergies Allergy Verified 01/30/25 08:19 Family History Brother Myocardial infarction, Onset Age: 68 Father Arthritis Alzheimer dementia Surgical History H/O shoulder surgery H/O: hysterectomy History of carpal tunnel surgery Social History Smoking Status: Current every day smoker (Patient did not smoke today.) tobacco type: cigarettes Tobacco: How many years used: 45 Electronic Cigarette Use: not used second hand exposure: No quit status: considering quitting alcohol intake: never substance use type: does not use what type of physical activity do you participate in: none marco a/restoration: None seatbelt use: always Review of Systems (Anesthesia) ROS Narrative System reviewed and no additional complaints, except as documented.
--- NOTE | 2025-01-30 09:13 | PCM.HP.STD ---
HPI - General General Date of Admission: 01/30/25 Date of Service: 01/30/25 Chief Complaint: diarrhea - colonoscopy HPI Narrative Patient is a 74-year-old female who is being seen today for a colonoscopy. Patient states that for the past month she has been having pretty significant diarrhea. She states that this began during the end of November and has persisted up until this week. She states that her stools are now more normal. Her stools were checked for various stool studies and was negative for C. difficile. I believe the lactoferrin was the only thing that was positive. She had a last colonoscopy about 10 years ago. [facility] Medical History Wears dentures Back pain Smoker Emphysema, unspecified Prolapsed bladder Osteoporosis Kidney stones Hypercholesterolemia Hypertension Carpal tunnel syndrome Back problem Arthritis Home Medications Medication Instructions Recorded Last Taken Type atorvastatin 40 mg tablet 40 mg PO QHS 01/21/15 Unknown History metoprolol tartrate 25 mg tablet 25 mg PO BID 01/21/15 01/30/25 History tramadol 50 mg tablet 100 mg PO BID PAIN 01/21/15 Unknown History ibuprofen 800 mg tablet 800 mg PO TID PRN PRN Pain #30 tabs 10/01/17 Unknown Rx gabapentin 400 mg capsule 400 mg PO TID 07/07/21 01/30/25 History twixmoev-ykb-jopaa ac 400 1 tab PO DAILY 07/07/21 Unknown History mcg-calcium carb 500 mg-vit K1 20 mcg tablet (Women's 50 Plus Multivitamin) aspirin 81 mg tablet 81 mg PO QDAY 01/08/25 01/25/25 History cholecalciferol (vitamin D3) 50 50 mcg PO QDAY 01/08/25 Unknown History mcg (2,000 unit) capsule losartan 25 mg tablet 25 mg PO QDAY 01/08/25 01/30/25 History potassium chloride 20 mEq 20 meq PO BID 01/08/25 Unknown History tablet,extended release (K-Tab) ropinirole 1 mg tablet 2 mg PO TID 01/08/25 01/30/25 History Allergy/AdvReac Type Severity Reaction Status Date / Time No Known Allergies Allergy Verified 01/30/25 08:19 Family History Brother Myocardial infarction, Onset Age: 68 Father Arthritis Alzheimer dementia Surgical History H/O shoulder surgery H/O: hysterectomy History of carpal tunnel surgery Social History Smoking Status: Current every day smoker (Patient did not smoke today.) tobacco type: cigarettes Tobacco: How many years used: 45 Electronic Cigarette Use: not used second hand exposure: No quit status: considering quitting alcohol intake: never substance use type: does not use what type of physical activity do you participate in: none marco a/yarsani: None seatbelt use: always Vital Signs Vital Signs Vital Signs: 01/30/25 08:23 01/30/25 08:23 01/30/25 09:01 Temperature 98.3 F 98.3 F Temperature Source Temporal Pulse Rate 63 63 Respiratory Rate 16 16 Respiratory Pattern Normal Blood Pressure 138/59 H 138/59 H Blood Pressure Mean 85 Blood Pressure Source Monitor Blood Pressure Position Semi-Fowlers Blood Pressure Location Right Arm Pulse Ox 100 100 Oxygen Delivery Method Room Air Room Air Weight Weight: 110 lb 3.698 oz Body Mass Index (BMI) 19.5 Physical Exam Const alert, oriented x3 and no apparent distress Results Lab / Micro Data 01/29/25 08:37 Labs: Laboratory Results - last 24 hr 01/29/25 08:37: Potassium 4.4 Assessment & Plan Assessment/Plan (1) Diarrhea: (2) Encounter for screening for malignant neoplasm of colon: PLAN: colonoscopy planned for today
[2025-01-30] MEDS: Lactated Ringers 500 ML IV (09:20)
[2025-01-30] MEDS: Lidocaine 1% (5 ml sdv) 5 ML Vial IV (09:23)
--- NOTE | 2025-01-30 10:22 | PCM.POST.ANE ---
Anesthesia: Postop Eval I Current Vital Signs Temperature: 98.1 F Pulse Rate: 72 Blood Pressure: 117/72 Respiratory Rate: 14 Pulse Ox: 97 Assessment Airway patent: Yes Spontaneous unlabored respirations: Yes nausea: No Vomiting: No Anesthesia Complication: No Fluid Hydration Crystalloid volume administer (ml): 500 Total IV fluid infused: 500 Progress Note Anesthesia document: Postop Eval 1 completed: Yes
--- NOTE | 2025-01-30 10:23 | OP.COLON_ITS ---
Patient Name: Keysha Gabriel Procedure Date: 01/30/2025 9:13 AM Date of : 1950 Age: 74 Procedure: Colonoscopy Indications: Clinically significant diarrhea of unexplained origin Providers: Isma Redd MD Referring MD: Vinh Abdullahi Medicines: Monitored Anesthesia Care Patient Profile: Refer to note in patient chart for documentation of history and physical. Last Colonoscopy: more than 10 years ago. Complications: No immediate complications. Estimated blood loss: None. Procedure: Pre-Anesthesia Assessment: - Prior to the procedure, a History and Physical was performed, and patient medications and allergies were reviewed. The patient's tolerance of previous anesthesia was also reviewed. The risks and benefits of the procedure and the sedation options and risks were discussed with the patient. All questions were answered, and informed consent was obtained. Prior Anticoagulants: The patient has taken no anticoagulant or antiplatelet agents. ASA Grade Assessment: II - A patient with mild systemic disease. After reviewing the risks and benefits, the patient was deemed in satisfactory condition to undergo the procedure. After I obtained informed consent, the scope was passed under direct vision. Throughout the procedure, the patient's blood pressure, pulse, and oxygen saturations were monitored continuously. The adult colonoscope was introduced through the anus with the intention of advancing to the cecum. The scope was advanced to the proximal sigmoid colon ( 30 cm) before the procedure was aborted. Medications were given. The colonoscopy was extremely difficult due to restricted mobility of the colon and a tortuous colon. Unable to safely advance scope beyond 30 cm due to extreme tortuosity. The patient tolerated the procedure well. The quality of the bowel preparation was adequate. Moderate Sedation: See the other procedure note for documentation of moderate sedation with intraservice time. Scope In: 9:29:01 AM Scope Out: 10:09:53 AM Total Procedure Duration Time 0 hours 40 minutes 52 seconds Findings: The perianal and digital rectal examinations were normal. Many small and large-mouthed diverticula were found in the sigmoid colon. The exam was otherwise without abnormality. Impression: - Diverticulosis in the sigmoid colon. - The examination was otherwise normal. - No specimens collected. Recommendation: - Discharge patient to home (ambulatory). - High fiber diet. - Repeat colonoscopy PRN because the examination was incomplete. - Continue present medications. Procedure Code(s): --- Professional --- 32427, 53, Colonoscopy, flexible; diagnostic, including collection of specimen(s) by brushing or washing, when performed (separate procedure) Diagnosis Code(s): --- Professional --- K57.30, Diverticulosis of large intestine without perforation or abscess without bleeding R19.7, Diarrhea, unspecified CPT copyright 2021 [employer]. All rights reserved. The codes documented in this report are preliminary and upon assembler bonding review may be revised to meet current compliance requirements. Isma Redd MD 01/30/2025 10:23:16 AM This report has been signed electronically. Number of Addenda: 0 Note Initiated On: 01/30/2025 9:13 AM
--- NOTE | 2025-01-30 10:24 | OP.PROVAT_ITS ---
01/30/2025 Vinh Abdullahi [address] [place] [address] Re : Colonoscopy procedure for Keysha Gabriel Dear Dr. Abdullahi This procedure was performed on Thursday, January 30, 2025. My impressions and recommendations are as follows: Impressions : - Diverticulosis in the sigmoid colon. - The examination was otherwise normal. - No specimens collected. Recommendations : - Discharge patient to home (ambulatory). - High fiber diet. - Repeat colonoscopy PRN because the examination was incomplete. - Continue present medications. My findings are described in the full procedure note, which is enclosed. If I can be of further assistance, please feel free to contact me at . Sincerely, Isma Redd MD 01/30/2025 10:23:16 AM This report has been signed electronically.
== END 2025-01-30 11:09 | disposition home or self-care (01) ==
LOC: EN 08:06 → AC 08:07
PROVIDERS: Anesthesiology; PCP Family Medicine; Referring Provider Family Medicine; Visit Provider Surgery
DX: Z12.11 Encounter for screening for malignant neoplasm of colon (principal); Q43.8 Other specified congenital malformations of intestine; R19.7 Diarrhea, unspecified; Z53.8 Procedure and treatment not carried out for other reasons; I10 Essential (primary) hypertension; E78.00 Pure hypercholesterolemia, unspecified; M81.0 Age-related osteoporosis without current pathological fracture; Z79.82 Long term (current) use of aspirin; Z79.899 Other long term (current) drug therapy; F17.210 Nicotine dependence, cigarettes, uncomplicated
CPT/HCPCS: G0121; 36415; 84132; 93005